=== PATIENT | male | born 1945 | race African-American/Black ===

== ENCOUNTER 2017-04-29 16:42 | Inpatient (IN) | payer MEDICARE, MEDICAID ==
[~2017-04-29] VITALS: Ht 175.3 cm; Wt 150.8 kg
[~2017-04-29 16:42] MED LIST: Vitamin A and D
[2017-04-29 17:01] VITALS: BP 109/58; PULSE 102; RESP 20; O2SAT 94
--- NOTE | 2017-04-29 18:31 | ED.REPORT ---
HPI-General Illness Date of Service Apr 29, 2017 ED Provider: Benedict Mendoza MD A 71 year old male with an extensive medical history including CHF, pulmonary hypertension, lower extremity edema, hypertension, diabetes, C. difficile and MRSA is brought from his residence at [facility] to the ED via EMS due to an up trending white blood cell count. The pt's white blood cell count is checked weekly and it was found to be abnormal today. This is accompanied by persistent C. difficile diarrhea, five days of worsening generalized body pain and lower extremity edema. He has no other acute complaints at this time. The pt denies cough, headache, chest pain, shortness of breath or abdominal pain. He also had a bone infection two weeks ago and has been admitted several times to different hospitals recently. He has had a decubitus ulcer since early 02/2017, which is now infected with MRSA and being treated with antibiotics. Nursing Notes Stated Complaint: WBC OFF/DECUBITUS ULCER/FROM [facility] Chief Complaint: General Complaint Nursing Notes Reviewed: Yes Allergies: Coded Allergies: No Known Drug Allergies (Verified Allergy, 11/13/11) Scheduled Albuterol HFA (Proair HFA) 8.5 Gm Hfa.aer.ad 2 PUFFS INHALATION Q4H Allopurinol (Allopurinol) 100 Mg Tablet 200 MG PO BID Ascorbic Acid (Vitamin C) 100 Mg Tablet 0 PO DAILY Atorvastatin (Lipitor) 10 Mg Tab 40 MG PO DAILY Famotidine (Famotidine) 20 Mg Tablet 20 MG PO DIALY Flaxseed Oil (Hamilton-3 Flaxseed Oil) 1,000 Mg Capsule 1,000 MG PO DAILY Fondaparinux Sodium (Fondaparinux Sodium) 2.5 Mg/0.5 Ml Syringe 2.5 MG SQ DAILY Furosemide (Furosemide) 20 Mg Tab 20 MG PO DAILY Lovastatin (Lovastatin) 40 Mg Tablet 40 MG PO HS Magnesium Oxide (Magnesium Oxide) 400 Mg Tablet 800 MG PO 2X WEEK Metolazone (Metolazone) 2.5 Mg Tablet 2.5 MG PO mON-wED-sat Multivitamin (Multivitamins) 1 Each Capsule 1 EACH PO DAILY Oxycodone ER (Oxycontin) 10 Mg Tab.er.12h 10 MG PO Q8HR Aqckcatspaku-Fgnl-Rwafzsya,Iso (Zosyn 4.5 gm/100 ml Galaxy Bag) 4.5 Gm/100 Ml Froz.piggy 4.5 GM IV Q6HR Potassium Chloride ER (Potassium Chloride ER) 20 Meq Tablet.er 40 MEQ PO DAILY TAKE WITH FOOD Rutin (Rutin) 500 Mg Tablet 500 MG PO DAILY Spironolactone (Spironolactone) 50 Mg Tablet 50 MG PO DAILY Torsemide (Torsemide) 20 Mg Tablet 20 MG PO BID Vancomycin (Vancomycin) 250 Mg Capsule 250 MG PO QID Scheduled PRN Acetaminophen (Acetaminophen) 325 Mg Tablet 650 MG PO Q4H PRN PRN For Pain Colchicine (Colcrys) 0.6 Mg Tablet 0.6 MG PO DAILY PRN PRN GOUT Hydromorphone (Hydromorphone) 4 Mg Tablet 4 MG PO Q4H PRN PRN Pain Miscellaneous Medications ([Vitamin A and D]) General Time Seen by MD: 18:13 Chief Complaint Other (High WBC count) Hx Obtained From: Patient, Community Outreach Advocate Arrived By: Ambulance Sudden in Onset?: No Recent Healthcare: Recent doctor visit, Recent hospitalization Similar Sx Previous: Yes ( ) Past Medical History Past Medical History CHF hypertension pulmonary hypertension COPD edema diverticulosis hip pain sciatica pain diabetes Past Surgical History RLE microphlebectomy polypectomy Smoking History Unknown if Ever Smoker Social History resides in [facility] Other Social History: Good social support Ambulatory Status Wheelchair Review of Systems high white blood cell count generalized body pain bilateral lower extremity edema decubitus ulcer Full Review of Systems Respiratory: Denies: Non-productive cough, Shortness of breath Cardiovascular: Denies: Chest pain GI: Denies: Abdominal pain Neurologic: Denies: Headache Complete sys rev & neg: except as marked. Physical Exam Constitutional: Well-developed, well-nourished. Not diaphoretic. Head: Normocephalic and atraumatic. Mouth/Throat: Oropharynx is clear and moist. No oropharyngeal exudate. Eyes: EOM are normal. Pupils are equal, round, and reactive to light. Neck: Supple, no tracheal deviation. Cardiovascular: Normal rate, regular rhythm. Equal and intact distal pulses throughout. Pulmonary/Chest: Effort normal and breath sounds normal. No respiratory distress. Abdominal: Soft. No distension. There is no tenderness, rebound, or guarding. Bowel sounds present. Musculoskeletal: Range of motion grossly intact, moving all extremities. 2+ pitting edema of bilateral lower extremities. Strong pulses bilaterally. Chronic venous stasis changes. No bony tenderness. Neurological: AOx3. Grossly nonfocal exam. Strength and sensation intact and equal to bilateral upper and lower extremities. Skin: Warm and dry, no pallor appreciated. 2 cm x 2 cm x 1 cm decubitus ulcer on the right side of the sacroiliac region. Psychiatric: Appropriate mood and affect. Behavior appears normal. Vital Signs Vital Signs Date Time Temp Pulse Resp B/P Pulse Ox O2 Delivery O2 Flow Rate FiO2 04/29/17 23:39 107 18 101/52 99 Nasal Cannula 2 04/29/17 22:32 94 18 100/47 100 Nasal Cannula 2 04/29/17 17:01 36.7 102 20 109/58 94 Room Air Initial VS: Reviewed Respiratory / Chest: Atraumatic, Breath sounds NL, Breath sounds = bilat, No respiratory distress Effort normal Interpretation & Diagnostics Interpretation & Diagnostics: Hip/Pelvis X-Ray: IMPRESSION: 1. 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 Associated avascular necrosis of the femoral head cannot be excluded. Dictated by: German Zuniga M.D. on 04/29/2017 at 22:08 Approved by: German Zuniga M.D. on 04/29/2017 at 22:11 Lab Results Interpretation Result Diagram: 04/29/17 1841 04/29/17 1841 Test 04/29/17 18:41 04/29/17 20:21 White Blood Count 18.3th/mm3 (3.8-10.1) Red Blood Count 3.22mil/mm3 (4.40-5.80) Hemoglobin 9.4g/dL (13.8-17.2) Hematocrit 29.0% (41.0-50.0) Mean Corpuscular Volume 90.1fL (81-100) Mean Corpuscular Hemoglobin 29.2pg (27.0-35.0) Mean Corpuscular Hemoglobin Concent 32.4% (32.0-37.0) Red Cell Distribution Width 17.6% (12.3-15.4) Platelet Count 392bil/L (150-400) Neutrophils (%) (Auto) 65.5% (40-74) Lymphocytes (%) (Auto) 11.0% (14-46) Monocytes (%) (Auto) 9.3% (4-12) Eosinophils (%) (Auto) 11.5% (0-5) Basophils (%) (Auto) 0.3% (0-3) Erythrocyte Sedimentation Rate 45mm/hr (0-30) Prothrombin Time 10.5sec (8.1-12.5) Prothromb Time International Ratio 0.98ratio Activated Partial Thromboplast Time 33.2sec (22.8-33.0) Sodium Level 129mEq/L (134-144) Potassium Level 4.8mEq/L (3.5-5.2) Chloride Level 90mEq/L (97-108) Carbon Dioxide Level 24mmol/L (18-29) Blood Urea Nitrogen 35mg/dL (8-27) Creatinine 1.24mg/dL (0.76-1.27) Estimat Glomerular Filtration Rate 61mL/min (>59) Glucose Level 111mg/dL (60-99) Lactic Acid Level 1.1mmol/L (0.4-2.0) Calcium Level 9.8mg/dL (8.5-10.1) Magnesium Level 1.6mg/dL (1.6-2.6) Total Bilirubin 0.3mg/dL (0.0-1.2) Aspartate Amino Transf (AST/SGOT) 23U/L (0-50) Alanine Aminotransferase (ALT/SGPT) 18U/L (0-44) Alkaline Phosphatase 75U/L (25-160) Troponin T 0.086ug/L (0.0-0.011) C-Reactive Protein 10.7mg/dL (0.0-0.5) Total Protein 5.9g/dL (6.4-8.4) Albumin 3.1g/dL (3.4-5.0) Procalcitonin 0.37ng/mL (0.00-0.08) Hold Gaspar Top Tube Received (Received) Urine Color Yellow (YELLOW) Urine Appearance Clear (CLEAR,HAZY) Urine pH 5.0 (5.0-8.0) Urine Specific Dickinson 1.010 (1.003-1.035) Urine Protein Tracemg/dL (NEG,TRACE) Urine Glucose (UA) Negativemg/dL (NEGATIVE) Urine Ketones Negativemg/dL (NEGATIVE) Urine Occult Blood Negative (NEGATIVE) Urine Nitrite Negative (NEGATIVE) Urine Bilirubin Negative (NEGATIVE) Urine Urobilinogen Normalmg/dL (NORMAL) Urine Leukocyte Esterase Trace (NEGATIVE) Urine RBC 0-2/hpf (0-2) Urine WBC 0-5/hpf (0-5) Urine Epithelial Cells Few/hpf (NONE-MOD) Urine Crystals None seen (NONE SEEN) Urine Bacteria Few/hpf (NONE-FEW) Urine Hyaline Casts None/lpf (NONE) Urine Granular Casts None seen (NONE SEEN) Urine Waxy Casts None seen (NONE SEEN) Urine Red Blood Cell Casts None seen (NONE SEEN) Urine White Blood Cell Casts None seen (NONE SEEN) Urine Mucus None seen (None Seen) Urine Trichomonas None seen (NONE SEEN) Urine Yeast None (NONE SEEN) Urinalysis Comment None Urine Culture Reflexed Indicated Hold Urine Received (Received) ECG Interpretation ECG Interpretation: sinus tachycardia with a rate of 107 abnormal R-wave progression, early transition Time: 19:40 Interpreted by: ED physician X-Ray Chest Interpretation Chest Xray Interpretation: IMPRESSION: 1. Mild pulmonary edema redemonstrated without acute consolidation. Dictated by: German Zuniga M.D. on 04/29/2017 at 22:06 Approved by: German Zuniga M.D. on 04/29/2017 at 22:07 Interpretation / Wet Read by: Interpret - Radiologist Re-Eval/Medical Decision Med Decision/Clinical Course 71M w/ complex PMHx presenting from [facility] over concern for sepsis. Patient does have skin/soft tissue source present w/ sacral ulcer, though unclear if this is entirely responsible for his current presentation. Labs notable for leukocytosis, elevated inflammatory markers; lactic acid of 1.1. Also w/ troponin of 0.086 - no new CP or dyspnea at this time, nor acute ischemic changes appreciated on EKG - suspect demand ischemia, though primary cardiac issue could also be present. XR of hip somewhat equivocal and though no obvious evidence of avascular necrosis, cannot be ruled out. Incidentally, patient also being treated for C. diff at this time. Patient started on broad spectrum abx in the ED. Given all of the above, plan admission for further evaluation and management. Discussed w/ patient and significant other; both were in agreement w/ plan, no further questions. Source of Hx: Old records Time of Eval: 18:13 Re-Evaluation/Progress Note: Pt and family informed of the need for admission during the initial interview. Pt and family understand and agree with the plan. All questions are addressed at this time. Time of Eval: 19:13 Re-Evaluation/Progress Note: Pt rechecked and the diagnosis and plan for admission are further discussed. Time of Eval: 21:07 Re-Evaluation/Progress Note: Pt rechecked, who is stable. Additional physical examination is performed. Consultation : Referral / Consult Name: Joaquin Moore MD Consulted With: Hospitalist Call Returned at: 23:12 Painter Decorator: Agrees with eval, Agrees with plan, Accepts admit Note: Spoke with Dr. Moore, hospitalist, regarding pt's case. Dr. Moore agrees with the evaluation and agrees to admit the pt. Counseled Regarding: Diagnosis, Lab results, Need for admission Discharge & Departure Primary Impression: Sepsis Sepsis type: sepsis due to unspecified organism Qualified Code: A41.9 - Sepsis, unspecified organism Additional Impression: NSTEMI (non-ST elevated myocardial infarction) Disposition: ADMITTED TO HOSPITAL Discharge Condition All VS Reviewed: Yes Condition: Stable Referrals: OTHER,PHYSICIAN (PCP) Crit Care Except Billable Proc Time Spent: 30-74 minutes Services Performed: Patient management by me, Time spent at bedside, Reviewing test results, Discussing patient care, Documentation in record, Time with fam/ surrogate Critical Care Notes: Please see MDM above Scribe Attestation Portions of this note were transcribed by Tamia Levine. I, Dr. Mendoza personally performed the history, physical exam and medical decision-making; I reviewed and confirmed the accuracy of the information in the transcribed note. Signed by: Melvin Momin, 04/29/17 and 2313. Benedict Mendoza MD Apr 29, 2017 18:31 TAMIA LEVINE Apr 29, 2017 18:47
[2017-04-29 18:45] LABS: BASOPHILS % (AUTO) 0.3 % (0-3); EOSINOPHILS % (AUTO) 11.5 % (0-5); MONOCYTES % (AUTO) 9.3 % (4-12); Mean Corpuscular Hemoglobin 29.2 pg (27.0-35.0); Mean Corpuscular Volume 90.1 fL (81-100); NEUTROPHILS % (AUTO) 65.5 % (40-74); Platelet Count 392 bil/L (150-400)
[2017-04-29] MEDS ORDERED: SPIR50TA2 PO (18:46)
[2017-04-29] MEDS ORDERED: LOVA40TA PO (18:46)
[2017-04-29] MEDS ORDERED: ALBU8.5H2 INHALATION (18:46)
[2017-04-29] MEDS ORDERED: OXYC10TA69 PO (18:46)
[2017-04-29] MEDS ORDERED: RUTI500T PO (18:46)
[2017-04-29] MEDS ORDERED: [UNRECOGNIZED DRUG - CODE] SQ (18:46)
[2017-04-29] MEDS ORDERED: METO2.5T12 PO (18:46)
[2017-04-29] MEDS ORDERED: ASCO100T11 PO (18:46)
[2017-04-29] MEDS ORDERED: POTA-62 PO (18:46)
[2017-04-29] MEDS ORDERED: TORS20TA3 PO (18:46)
[2017-04-29] MEDS ORDERED: FLAX100038 PO (18:46)
[2017-04-29] MEDS ORDERED: HYDR4TAB PO (18:46)
[2017-04-29] MEDS ORDERED: COLC0.6T52 PO (18:46)
[2017-04-29] MEDS ORDERED: ATRV10T PO (18:46)
[2017-04-29] MEDS ORDERED: MAGN400T4 PO (18:46)
[2017-04-29] MEDS ORDERED: ACET325T51 PO (18:46)
[2017-04-29] MEDS ORDERED: FUR20 PO (18:46)
[2017-04-29] MEDS ORDERED: ZYL100 PO (18:46)
[2017-04-29] MEDS ORDERED: MULT1CAP33 PO (18:52)
[2017-04-29] MEDS ORDERED: FAMO20TA4 PO (18:52)
[2017-04-29] MEDS ORDERED: VANC250C11 PO (18:52)
[2017-04-29] MEDS ORDERED: PIPE4.5F2 IV (18:52)
[2017-04-29] MEDS ORDERED: 0.9% Sodium Chloride 1,000 ML IV ONE (18:58)
[2017-04-29] MEDS ORDERED: Clindamycin Inj 900 MG in IV Premix 1 EACH IV ONE (19:00)
[2017-04-29] MEDS ORDERED: Vancomycin Dose per Pharmacist XX ONE (19:00)
[2017-04-29] MEDS ORDERED: Meropenem Inj 1,000 MG in 0.9% Sodium Chloride 100 ML IV ONE (19:00)
[2017-04-29 19:18] LABS: INR 0.98 ratio
[2017-04-29 19:39] LABS: Magnesium 1.6 mg/dL (1.6-2.6)
[2017-04-29 19:43] LABS: TROPONIN T 0.086 ug/L (0.0-0.011)
[2017-04-29] MEDS: HYDROmorphone 1 mg/mL Inj IVPUSH PRN ×3 (19:45→22:07)
[2017-04-29] MEDS ORDERED: Vancomycin Inj 2,250 MG in 0.9% Sodium Chloride 500 ML IV ONE (19:55)
--- NOTE | 2017-04-29 22:09 | DRSVH ---
PROCEDURE: X-RAY CHEST ONE VIEW, PORTABLE ([id number]) INDICATIONS: leukocytosis TECHNIQUE: One view of the chest was acquired. COMPARISON: [facility], , CHEST 1 VIEW, 12/06/2016, 11:58. FINDINGS: Surgical changes and devices: None. Lungs and pleura: No pleural effusions or pneumothorax. There is mild pulmonary edema redemonstrate d. No acute consolidation. Mediastinum: Mediastinal contours appear unchanged. Heart size is enlarged. Bones and chest wall: No suspicious bony lesions. Overlying soft tissues appear unremarkable. IMPRESSION: 1. Mild pulmonary edema redemonstrated without acute consolidation. Dictated by: eGrman Zuniga M.D. on 04/29/2017 at 22:06 Approved by: German Zuniga M.D. on 04/29/2017 at 22:07
--- NOTE | 2017-04-29 22:12 | DRSVH ---
PROCEDURE: X-RAY PELVIS W/LAT HIP (LT) ([id number]) INDICATIONS: hip pain TECHNIQUE: AP pelvis with frontal and lateral views of the left hip. COMPARISON: [facility], , XR PELVIS W LATERAL HIP LT, 12/14/2015, 15:32. FINDINGS: Bones: Lateral view is limited due to body habitus. There is also extensive bowel gas limiting evalu ation. There is severe superior joint space narrowing in the left hip with increased flattening and remodeling along the articular surfaces of the acetabulum and femoral head. There is subchondral cys tic change and sclerosis. There is yhak-yj-ojjcvota axial joint space narrowing in the right hip. N o definite acute fracture. Soft tissues: No suspicious soft tissue calcifications. IMPRESSION: 1. Progressive osteoarthritic changes of the left hip with severe joint space narrowing with bony re modeling and flattening along the articular surfaces. Associated avascular necrosis of the femoral h ead cannot be excluded. Dictated by: German Zuniga M.D. on 04/29/2017 at 22:08 Approved by: German Zuniga M.D. on 04/29/2017 at 22:11
[2017-04-29 22:32] VITALS: BP 100/47; PULSE 94; RESP 18; O2SAT 100
[2017-04-29 22:46] LABS: APPEARANCE,URINE CLEAR (CLEAR,HAZY); COLOR,URINE YELLOW (YELLOW); OCCULT BLOOD,URINE NEGATIVE (NEGATIVE); UROBILINOGEN,URINE NORMAL (NORMAL)
[2017-04-29] MEDS ORDERED: Ondansetron 2 mg/mL 2 mL Inj IVPUSH PRN (23:20)
[2017-04-29] MEDS ORDERED: Polyethylene Glycol (PEG) 17 Gm Powder PO PRN (23:20)
[2017-04-29] MEDS ORDERED: Alum-Mag Hydrox-Simeth 30 mL Suspension PO PRN (23:20)
[2017-04-29 23:39] VITALS: BP 101/52; PULSE 107; RESP 18; O2SAT 99
--- NOTE | 2017-04-29 23:49 | PCM.HPMED ---
Subjective Date of Service Apr 29, 2017 Primary Provider: Admitting Physician: Primary Care Physician: Dieter Garibay MD Attending Physician: Chief Complaint: Sepsis History of Present Illness: Mr. Mcbride is a 71-year-old male with past medical history of CHF, pulmonary hypertension, lower extremity edema, C. difficile and MRSA, hypertension and diabetes who [facility] ED from [facility] via EMS secondary to upward trend of leukocytosis. He reportedly gets weekly WBC checks and today's lab value was found to be abnormal. Patient has also had persistent C. difficile diarrhea and 5 days of worsening generalized body aches pains and lower extremity edema. He states he had a bone infection 2 weeks ago and has been admitted several times to different hospitals recently. He states lower back discomfort and pain which she attributes to a decubitus ulcer which she developed 03/14/2017 and is reportedly now infected with MRSA being treated with ABX. He denies any other complaints. Denies headache, visual changes, chest pain, cough, shortness of breath or abdominal pain. In the ED CXR showed mild pulmonary edema, and x-ray hip/pelvis showed possible left hip avascular necrosis. Lab values showed leukocytosis 18.3, mild anemia, hyponatremia, elevated troponin and C-reactive protein. Patient was given vancomycin, meropenem and clindamycin and started on IV fluids. Given Dilaudid for pain. Review of Systems: A comprehensive review of systems was conducted with the patient and found to be negative except as above in the history of present illness. Allergies Coded Allergies: No Known Drug Allergies (Verified Allergy, 11/13/11) Home Medications Albuterol HFA (Proair HFA) 8.5 Gm Hfa.aer.ad 2 PUFFS INHALATION Q4H Allopurinol (Allopurinol) 100 Mg Tablet 200 MG PO BID Ascorbic Acid (Vitamin C) 100 Mg Tablet 0 PO DAILY Atorvastatin (Lipitor) 10 Mg Tab 40 MG PO DAILY Famotidine (Famotidine) 20 Mg Tablet 20 MG PO DIALY Flaxseed Oil (Newell-3 Flaxseed Oil) 1,000 Mg Capsule 1,000 MG PO DAILY Fondaparinux Sodium (Fondaparinux Sodium) 2.5 Mg/0.5 Ml Syringe 2.5 MG SQ DAILY Furosemide (Furosemide) 20 Mg Tab 20 MG PO DAILY Lovastatin (Lovastatin) 40 Mg Tablet 40 MG PO HS Magnesium Oxide (Magnesium Oxide) 400 Mg Tablet 800 MG PO 2X WEEK Metolazone (Metolazone) 2.5 Mg Tablet 2.5 MG PO mON-wED-fRI Multivitamin (Multivitamins) 1 Each Capsule 1 EACH PO DAILY Oxycodone ER (Oxycontin) 10 Mg Tab.er.12h 10 MG PO Q8HR Oyjjvejmhdoy-Echg-Thcaeyng,Iso (Zosyn 4.5 gm/100 ml Galaxy Bag) 4.5 Gm/100 Ml Froz.piggy 4.5 GM IV Q6HR Potassium Chloride ER (Potassium Chloride ER) 20 Meq Tablet.er 40 MEQ PO DAILY TAKE WITH FOOD Rutin (Rutin) 500 Mg Tablet 500 MG PO DAILY Spironolactone (Spironolactone) 50 Mg Tablet 50 MG PO DAILY Torsemide (Torsemide) 20 Mg Tablet 20 MG PO BID Vancomycin (Vancomycin) 250 Mg Capsule 250 MG PO QID PMH CHF with Chronic cor pulmonale hypertension pulmonary hypertension COPD edema diverticulosis hip pain sciatica pain diabetes coronary artery disease Sleep apnea Morbid obesity CK D stage V Gout GERD HLD . Surgical History RLE microphlebectomy polypectomy Family History Per outpatient records: Father: MRI, glaucoma, macular degeneration Mother: Cataracts Sister: Hypertension Social History Hx Alcohol Use: No Hx Substance Use: No Hx Tobacco Use: Yes Smoking Status: Former Smoker (0.5 packs per day 12 pack year history quit 11/1986) Living Arrangement: with Family Exam Vital Signs Vital Sign - Last Date Time Temp Pulse Resp B/P Pulse Ox O2 Delivery O2 Flow Rate FiO2 04/29/17 23:39 107 18 101/52 99 Nasal Cannula 2 04/29/17 17:01 36.7 Exam General: Laying in hospital bed in no acute distress, morbidly obese, appropriately interactive HEENT: Normocephalic, atraumatic. External ears without defect. Pupils equal, round, and reactive to light and accommodation. Oropharynx free of erythema and cobble stoning with moist mucosa. Poor dentition. Neck: Supple with full range of motion. No jugular venous distension, obvious though difficult to appreciate secondary to body habitus Cardiovascular: Regular rate and rhythm with no murmurs, rubs, or gallops appreciated Pulmonary: Clear to auscultation bilaterally with no crackles, wheezes, or rhonchi - difficult to appreciate secondary to body habitus. Normal respiratory effort with no use of accessory muscles. Abdomen: Soft, nontender. Extremities: Able to move all 4 extremities. Bilateral lower extremity edema. Neurological: Cranial nerves grossly intact. Psychiatric: Normal mood and affect. Alert and oriented to person, place, and time. ER doctor Reported 2 cm x 2 cm x 1 cm decubitus ulcer on the right side of sacroiliac region (unable to visualize secondary to patient pain and body habitus) Lab and Diagnostics Result Diagram: 04/29/17184004/29/171840 X-Rays, CTs and MRIs . X-RAY CHEST ONE VIEW, PORTABLE IMPRESSION: 1. Mild pulmonary edema redemonstrated without acute consolidation. Dictated by: German Zuniga M.D. on 04/29/2017 at 22:06 X-RAY PELVIS W/LAT HIP (LT)ns. IMPRESSION: 1. 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 Associated avascular necrosis of the femoral head cannot be excluded. Dictated by: German Zuniga M.D. on 04/29/2017 at 22:08 Assessment & Plan Mr. Mcbride is a 71-year-old male with past medical history of chronic hip pain , C. difficile, CHF, hypertension, COPD. Admitted after meeting septic criteria with possible source of sacral decubitus ulcer or colitis. Sepsis. Acute. Present on admission. Ongoing - On admission patient tachycardic, tachypneic with leukocytosis. Possible sources sacral decubitus ulcer, C. difficile colitis - Blood cultures pending - ABX in ED initiated IV vancomycin, meropenem, clindamycin - Continue vancomycin and meropenem - Pro calcitonin 0.37 - Consider infectious disease consult - Approximately 2 L IV fluids given in ED, held additional fluids secondary to volume status - Continue monitor Hip pain. Chronic. Present on admission - Imaging shows possible avascular necrosis - Continue pain management initiated in ED with IV Dilaudid Sacral decubitus ulcer. Present on admission. - Consider wound care consult in a.m. - Antibiotics as above History of C. difficile. Chronic. Present on admission - Stool C-diff PCR pending - Vancomycin by mouth in addition to IV - Hold clindamycin secondary to black box warning Anemia. Chronic. Present on admission. Ongoing - Stool guaiac Congestive heart failure. Chronic. Present on admission. Ongoing - Last echo from 2012 shows EF 50-55% (reduced from prior study), right ventricular enlargement - Troponin elevated 0.086, continue to trend - Consider repeat echo - Continue home Furosemide Hypertension. Chronic. Not present on admission. Ongoing - Per med rec home medications include torsemide, spironolactone and furosemide - Hold hypertensive meds, patient hemodynamicly stable COPD. Present on admission. Ongoing - We will hold home Albuterol - DuoNeb's when necessary Reported Diabetes. Present on admission. Ongoing - A1c pending Morbid obesity. Chronic. Present on admission. Ongoing - BMI 44.4 Gout. Present on admission. Chronic. Stable - Continue home Allopurinol - Continue home Colchicine GERD present on admission. Stable - Continue home Famotidine HLD. Chronic. Present on admission. Stable - Continue home Atorvastatin - Per med rec patient also on home lovastatin, held this medication At time of dictation med rec incomplete, many medications held awaiting verification. Patient Status: Patient was admitted under inpatient status with expected length of stay greater than two midnights due to severity of presenting symptoms , risk of adverse event, and complexity of treatment plan.0 CODE STATUS: Patient for code as of now, would write to have discussion during the day in the presence of fianc regarding goals of care. Pain Evaluation: Adequate Pain Control GI Prophylaxis: H2 stephanie VTE Prophylaxis: SCDs Resuscitation Status: CPR: Attempt Resuscitation Attending Statement The patient was seen and examined together with Dr. Ortiz on 04/29 and I agree with the history, exam and plan as outlined in the note above. JIMMY ORTIZ DO Apr 29, 2017 23:49 Joaquin Moore MD Apr 30, 2017 07:00
[2017-04-29 23:59] VITALS: BP 101/52; PULSE 107; RESP 18; O2SAT 99
[2017-04-30] VITALS (10 sets, daily range): BP systolic 94–103; BP diastolic 47–75; PULSE 91–114; RESP 13–22; O2SAT 92–96
[2017-04-30] MEDS: HYDROmorphone 1 mg/mL Inj IVPUSH PRN ×3 (02:38→15:27)
[2017-04-30] MEDS ORDERED: Albuterol-Ipratropium 3 mL Inhalation Solution NEB PRN (02:50)
[2017-04-30] MEDS: Vancomycin 250 mg Oral Capsule PO SCH ×3 (03:34→12:06)
[2017-04-30 03:46] LABS: BASOPHILS % (AUTO) 0.2 % (0-3); EOSINOPHILS % (AUTO) 12.3 % (0-5); MONOCYTES % (AUTO) 11.3 % (4-12); Mean Corpuscular Hemoglobin 29.3 pg (27.0-35.0); NEUTROPHILS % (AUTO) 65.2 % (40-74); Platelet Count 314 bil/L (150-400)
--- NOTE | 2017-04-30 03:47 | PCM.CONPHA ---
Subjective Date of Service: Apr 30, 2017 Requesting Provider: JIMMY SINGH DO Sepsis Reason for Pharmacy Consult: Vancomycin Dosing Objective Vital Signs Date Time Temp Pulse Resp B/P Pulse Ox O2 Delivery O2 Flow Rate FiO2 04/30/17 00:09 36.6 91 22 103/65 92 Nasal Cannula 4.00 04/29/17 23:59 36.7 107 18 101/52 99 Nasal Cannula 2 04/29/17 23:39 107 18 101/52 99 Nasal Cannula 2 04/29/17 22:32 94 18 100/47 100 Nasal Cannula 2 04/29/17 17:01 36.7 102 20 109/58 94 Room Air Intake and Output 04/28/17 04/29/17 04/30/17 00:00 00:00 00:00 Intake Total 1000 ml Balance 1000 ml Weight (Kilograms): 144.500 Height (Feet): 5 Height (Inches): 9.00 Test 04/29/17 18:41 04/29/17 20:21 White Blood Count 18.3th/mm3 (3.8-10.1) Red Blood Count 3.22mil/mm3 (4.40-5.80) Hemoglobin 9.4g/dL (13.8-17.2) Hematocrit 29.0% (41.0-50.0) Mean Corpuscular Volume 90.1fL (81-100) Mean Corpuscular Hemoglobin 29.2pg (27.0-35.0) Mean Corpuscular Hemoglobin Concent 32.4% (32.0-37.0) Red Cell Distribution Width 17.6% (12.3-15.4) Platelet Count 392bil/L (150-400) Neutrophils (%) (Auto) 65.5% (40-74) Lymphocytes (%) (Auto) 11.0% (14-46) Monocytes (%) (Auto) 9.3% (4-12) Eosinophils (%) (Auto) 11.5% (0-5) Basophils (%) (Auto) 0.3% (0-3) Erythrocyte Sedimentation Rate 45mm/hr (0-30) Prothrombin Time 10.5sec (8.1-12.5) Prothromb Time International Ratio 0.98ratio Activated Partial Thromboplast Time 33.2sec (22.8-33.0) Sodium Level 129mEq/L (134-144) Potassium Level 4.8mEq/L (3.5-5.2) Chloride Level 90mEq/L (97-108) Carbon Dioxide Level 24mmol/L (18-29) Blood Urea Nitrogen 35mg/dL (8-27) Creatinine 1.24mg/dL (0.76-1.27) Estimat Glomerular Filtration Rate 61mL/min (>59) Glucose Level 111mg/dL (60-99) Lactic Acid Level 1.1mmol/L (0.4-2.0) Calcium Level 9.8mg/dL (8.5-10.1) Magnesium Level 1.6mg/dL (1.6-2.6) Total Bilirubin 0.3mg/dL (0.0-1.2) Aspartate Amino Transf (AST/SGOT) 23U/L (0-50) Alanine Aminotransferase (ALT/SGPT) 18U/L (0-44) Alkaline Phosphatase 75U/L (25-160) Troponin T 0.086ug/L (0.0-0.011) C-Reactive Protein 10.7mg/dL (0.0-0.5) Total Protein 5.9g/dL (6.4-8.4) Albumin 3.1g/dL (3.4-5.0) Procalcitonin 0.37ng/mL (0.00-0.08) Hold Gaspar Top Tube Received (Received) Urine Color Yellow (YELLOW) Urine Appearance Clear (CLEAR,HAZY) Urine pH 5.0 (5.0-8.0) Urine Specific [place] 1.010 (1.003-1.035) Urine Protein Tracemg/dL (NEG,TRACE) Urine Glucose (UA) Negativemg/dL (NEGATIVE) Urine Ketones Negativemg/dL (NEGATIVE) Urine Occult Blood Negative (NEGATIVE) Urine Nitrite Negative (NEGATIVE) Urine Bilirubin Negative (NEGATIVE) Urine Urobilinogen Normalmg/dL (NORMAL) Urine Leukocyte Esterase Trace (NEGATIVE) Urine RBC 0-2/hpf (0-2) Urine WBC 0-5/hpf (0-5) Urine Epithelial Cells Few/hpf (NONE-MOD) Urine Crystals None seen (NONE SEEN) Urine Bacteria Few/hpf (NONE-FEW) Urine Hyaline Casts None/lpf (NONE) Urine Granular Casts None seen (NONE SEEN) Urine Waxy Casts None seen (NONE SEEN) Urine Red Blood Cell Casts None seen (NONE SEEN) Urine White Blood Cell Casts None seen (NONE SEEN) Urine Mucus None seen (None Seen) Urine Trichomonas None seen (NONE SEEN) Urine Yeast None (NONE SEEN) Urinalysis Comment None Urine Culture Reflexed Indicated Hold Urine Received (Received) Assessment/Plan Assessment/Plan A: * Vancomycin dosing by pharmacy for 71 y/o man with sepsis * He was given a 2250 mg IV vancomycin dose in the ED * The patient is also being started on meropenem and oral vancomycin * Estimated CrCl for this patient is 80 mL/min (Cockcroft & Gault using AdjBW) * Estimated vancomycin half-life is 10 hours and estimated Vd is 79 liters ( 0.55 L/kg for BMI of 47) P: * Start vancomycin 1750 mg IV every 12 hours * Target a vancomycin trough range of 15 - 20 mcg/mL * Draw a trough level prior to the fourth dose Thank you. Pharmacy will continue to follow this patient. Gisele Hughes Apr 30, 2017 03:47
[2017-04-30] MEDS ORDERED: Clindamycin Inj 600 MG in IV Premix 1 EACH IV SCH (05:00)
--- NOTE | 2017-04-30 06:07 | NUR ---
ADMIT Patient transfer from ED in [facility] bed. Skin check reveals large PU on right buttock, packing replaced after area cleaned of liquid stool. Patient had several episodes of liquid stool while staff was attempting to clean him. Patient had difficulty tolerating turning for cleaning and changing. ORder for fecal management system received and was inserted. Patient his rather large and putting a lot of pressure on FMS tube, attempts to prop his leg and back up to allow for drainage. Patient continues to roll onto tube. Provided dilaudid for pain. Able to rest after FMS and pain medications.
[2017-04-30] MEDS: Meropenem Inj 1,000 MG in 0.9% Sodium Chloride 100 ML IV SCH ×3 (06:43→22:06)
[2017-04-30] MEDS ORDERED: Vancomycin Inj 1,750 MG in Dextrose 5% 500 ML IV SCH ×2 (08:30→20:30)
[2017-04-30] MEDS ORDERED: Vancomycin Dose per Pharmacist XX SCH (08:30)
[2017-04-30] MEDS ORDERED: 0.9% Sodium Chloride 250 ML ONE (11:16)
--- NOTE | 2017-04-30 12:26 | NUR ---
Skin protection Pt has pre-existing pressure ulcer on buttock area, WC already assessed and provided cleaning and dressing this am, please see note. Q2 turning/pillowing schedule in place, specialty bed based on BMI being used, FMS placed on NOC shift to keep wound area clean as pt has ongoing diarrhea, butler already in place upon admission. Care continues
--- NOTE | 2017-04-30 13:24 | PCM.PNMED ---
Subjective Date of Service Apr 30, 2017 Exam Vital Signs Vital Sign - Last Date Time Temp Pulse Resp B/P Pulse Ox O2 Delivery O2 Flow Rate FiO2 04/30/17 10:30 97 04/30/17 08:58 36.9 13 95/59 96 Nasal Cannula 4.00 Intake and Output 04/29/17 04/29/17 04/30/17 Cumulative From/Thru 15:00 23:00 07:00 04/29/17 17:01 - 04/30/17 06:40 Intake Total 1000 ml 473 ml 1473 ml Output Total 700 ml 700 ml Balance 1000 ml -227 ml 773 ml Intake Oral 473 ml 473 ml IV Total 1000 ml 1000 ml Output Urine Total 700 ml 700 ml Exam Gen.- no apparent distress. Sleeping not arousable to voice Eyes- eyes closed, no obvious discharge normal eyelids ENT- ears normal, nose normal Neck- supple/trach midline CVS- RRR Lungs respirations regular and nonlabored GI-generous pannus Musc- moving 4 no obvious deformity Neuro- cranial nerves II through XII intact to gross examination, nonfocal Skin- warm and dry, no rashes/lesions/wounds noted Reportedly large tunneling decubitus on sacrum not personally examined 04/30 Psych-sleeping not arouse to quiet voice, Lab and Diagnostics Result Diagram: 04/30/17 0335 04/30/17 0335 X-Rays, CTs and MRIs . X-RAY CHEST ONE VIEW, PORTABLE IMPRESSION: 1. Mild pulmonary edema redemonstrated without acute consolidation. Dictated by: German Zuniga M.D. on 04/29/2017 at 22:06 X-RAY PELVIS W/LAT HIP (LT)ns. IMPRESSION: 1. 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 Associated avascular necrosis of the femoral head cannot be excluded. Dictated by: German Zuniga M.D. on 04/29/2017 at 22:08 Assessment & Plan 71-year-old male admitted 04/30 worsening leukocytosis despite treatment for C. difficile and sacral decubitus 04/30 medically complex patient with I am meeting for the first time today I reviewed his records we are getting infectious disease consult, monitoring blood sugars, starting treatment for COPD with bronchodilators and evaluating for whether patient has acute CHF or not. #Respiratory failure, not clear if this is acute or chronic likely multifactorial COPD and possibly acute CHF. We will institute bronchodilators and check BNP #COPD. Present on admission. Ongoing -Start bronchodilator regimen. Patient's hypoxemic. - DuoNeb's when necessary #Congestive heart failure. Chronic. Present on admission. Ongoing - Last echo from 2012 shows EF 50-55% (reduced from prior study), right ventricular enlargement - Trop 0.086, 0.075 f/u in am 04/30 - Continue home Furosemide -Chek B HUMAN RESOURCES BENEFITS COORDINATOR in a.m. patient may need some IV this may be acute given hypoxemia #Sepsis. Acute. Present on admission. Patient does not seem overtly septic - On admission patient tachycardic, tachypneic with leukocytosis. Possible sources sacral decubitus ulcer, C. difficile colitis - Blood cultures pending - ABX in ED initiated IV vancomycin, meropenem, clindamycin - Continue vancomycin and meropenem - Pro calcitonin 0.37 - infectious disease consult requested 04/[address] Salas - Approximately 2 L IV fluids given in ED, held additional fluids secondary to volume status #Hip pain. Chronic. Present on admission - Imaging shows possible avascular necrosis - Continue pain management initiated in ED with IV Dilaudid #Sacral decubitus ulcer. Present on admission. - wound care consult 04/30 - Antibiotics as above #History of C. difficile. Chronic. Present on admission - Stool C-diff PCR pending - Continue Vancomycin by mouth in addition to IV - Hold clindamycin secondary to black box warning #Anemia. Chronic. Present on admission. Ongoing - Stool guaiac -Check anemia panel including iron and trend 04/30 #Hypertension. Chronic. Not present on admission. Ongoing - Per med rec home medications include torsemide, spironolactone and furosemide - Hold hypertensive meds, patient hemodynamicly stable #Reported Diabetes. Present on admission. Ongoing - A1c pending -Low-dose sliding scale may be discontinued if blood sugars less than [id number] hours #Morbid obesity. Chronic. Present on admission. Ongoing - BMI 44.4 #Gout. Present on admission. Chronic. Stable - Continue home Allopurinol - Continue home Colchicine #GERD present on admission. Stable - Continue home Famotidine #HLD. Chronic. Present on admission. Stable - Continue home Atorvastatin - Per med rec patient also on home lovastatin, held this medication #Prophylaxis-DVT with SCDs and enoxaparin, GI not indicated #Disposition-full code, from [facility] Prophylaxis: H2 stephanie VTE Prophylaxis: SCDs Resuscitation Status: CPR: Attempt Resuscitation Aman Cross MD Apr 30, 2017 13:24 Aman Cross MD Apr 30, 2017 13:24
[2017-04-30] MEDS ORDERED: DEXTROSE 10% IV ONE (13:30)
[2017-04-30] MEDS ORDERED: Glucose 40% Oral Gel 15 Gm Tube PO PRN (13:30)
[2017-04-30] MEDS ORDERED: Albuterol 2.5 mg/3 mL Inhalation Solution NEB PRN (13:35)
--- NOTE | 2017-04-30 14:43 | NUR ---
Social Work-initial assessment: Data:See initial assessment. Pt is a 71 y/o male who was admitted on 04/29/17 for sepsis per H&P. Pt's insurance is [employer] and PCP is Dieter Garibay MD. EMR Reviewed. BRANDON met with pt at bedside, SW role explained. Pt is alert and oriented x3. Pt has been residing at [facility] where he is a total assist. Pt uses a w/c at baseline and does not drive. Pt has no HH history. Pt has no care home care insurance or VA benefits. SW discussed DPOA/ advanced directive, pt confirms he has completed this, SW encouraged a copy to be brought in. order received for return to [facility]. BRANDON spoke with Hallie at [facility] who confirms pt is from them and is able to accept pt back at discharge with Dr. Agrawal to follow. BRANDON provided phone number and plan on white board in room. Paperwork in the chart. SW will continue to follow. Assessment:Pt who resides at [facility]. Plan:Pt to discharge back to [facility] when medically stable with Dr. Agrawal to follow. Paperwork in the chart. SW will continue to follow. ABELARDO Enriquez Addendum: 04/30/17 at 1448 by BRANDAN JUSTICE Amended: Links added.
--- NOTE | 2017-04-30 14:48 | NUR ---
Pt can return to [facility] when medically stable with Dr. Agrawal to follow. ABELARDO Enriquez
--- NOTE | 2017-04-30 15:35 | CONS ---
[address] [address] CONSULTATION REPORT PATIENT: DEMOND HINKLE : 1945 MR#: [id number] ADMIT: 04/29/2017 JOB ID: [id number] DATE OF SERVICE: 04/30/2017 INFECTIOUS DISEASE CONSULTATION: I thank Dr. Cross for this consult. REASON FOR CONSULT: Complex patient with sacral ulcer, history of C difficile, history of MRSA and multiple medical problems. HISTORY OF PRESENT ILLNESS: The patient is an incredibly complicated 71-year-old gentleman who usually lives in [place]. He has many outstanding medical problems but the last time he was seen here appears to have been 2012 when he coded and was intubated and went through the hypothermia protocol. He was subsequently transferred to the [facility] where he says it was determined that his code was due to primary pulmonary hypertension. In addition to that diagnosis, he has morbid obesity, sleep apnea, diabetes, unexplained cytopenias, renal insufficiency, avascular necrosis of the left hip, organic heart disease with CHF and pulmonary hypertension as well as history of multiple infections. The patient tells us that recently he was hospitalized at [facility] with problems related to a large sacral decubitus ulcer. He says that grew MRSA and he was then transferred to [facility] rehab facility outside of [place] for a very long stay. [facility] sent him about a week ago to [facility] here in [facility] apparently to complete a course of Zosyn which was aimed at treating his decub we understand as well as to continue therapy with oral vancomycin for C. difficile. While he was at [facility], a CBC was checked which showed that he had a new leukocytosis, and on that basis, he was transferred here yesterday. Despite his recent transfer here because of leukocytosis, the patient says he feels about at his baseline. At this point he has no fevers, chills or sweats and he denies any new sore throat, cough, shortness of breath, nausea or vomiting. He has a rectal tube in because of diarrhea which apparently is chronic and/or persistent. He has a Strauss catheter in, which apparently is new, but the patient denies any acute urinary symptoms. He also denies any known history of eosinophilia, allergy or asthma. Note additional clarification. The patient's Strauss has been present for months now and so he truly has no urinary symptoms. PAST MEDICAL HISTORY: 1. Morbid obesity. 2. Obstructive sleep apnea. 3. Type 2 diabetes. 4. Hypertension. 5. Cytopenias. 6. Gout. 7. Chronic renal insufficiency. 8. Chronic bilateral lower extremity edema. 9. Chronic left hip pain thought to be due to avascular necrosis. 10. Hyperlipidemia. 11. Organic heart disease: a. CHF. b. Pulmonary hypertension. 12. History of MRSA infections. 13. History of C. difficile which apparently is a recent process. 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 He smoked in the distant past. Does not currently drink alcohol. FAMILY HISTORY: Negative for tuberculosis in first and second-degree relatives. REVIEW OF SYSTEMS: Was done. The patient does not have a headache, no visual change. No sore throat currently. No stiff neck. No cough, shortness of breath or chest pain. No abdominal pain, nausea or vomiting. He has a rectal tube in place so he is unaware whether or not he is having diarrhea. He does have a Strauss in place and it has been there for many weeks and dates back to his admission to [facility]. He notes he has a large decubitus ulcer, which is longstanding but he is not aware of the current status of it. His legs are chronically swollen. He is currently not ambulatory due to hip pain, lower extremity edema and other issues. He denies any recent skin rash. Remainder of the review of systems is negative. PHYSICAL EXAMINATION: Reveals a morbidly obese gentleman, BMI approaching 50. Weight in excess of 320 pounds. He is awake, alert, in no acute distress. He has been afebrile since admission. Temperature 36.9, pulse 97, respiratory rate 13, blood pressure 95/59. He is saturating well but requiring 4 L. He is awake, alert, conversational. No evidence of head trauma. Eyes without conjunctivitis. Oral cavity without thrush or hairy leukoplakia. Neck is obese but without obvious JVD or adenopathy. Lungs clear anteriorly. Cardiac tones very distant. Regular rate and rhythm though. Abdomen very obese, soft, nontender, without appreciable organomegaly or ascites. No suprapubic fullness. He has a Strauss catheter. He has a rectal tube. We cannot appreciate whether or not he has inguinal nodes due to his obesity. He has about 3+ edema of the legs bilaterally. No evidence of skin breakdown or synovitis is noted in the lower extremities. He has good distal pulses and reasonable perfusion of his lower extremities. Neurologically he can move everything but is weak consistent with his nonambulatory status. Due to the very notable difficulties in rolling the patient over, we were not able to do that given that he was just rolled over for the Wound senior bioinformatics specialist, but that specialist did tell us that he has a large sacral decub with about 9 cm of undermining. The customer relations specialist felt this did not look infected or inflamed at this point. LABORATORY STUDIES: Include white count of 18,000 when he came in, 17,000 today. What is notable is there is 12% eosinophils in both samples so he has an eosinophil count around 2000. His hematocrit is 24, platelets 314, sed rate 45, creatinine 1.23. Procalcitonin 0.37. LFTs normal. CRP is 10.7. Urinalysis without white cells. Cultures include negative blood cultures. Random urine is pending but negative so far. We do not have any confirmation of his MRSA status, C. difficile status or any of his records from what are apparently long and complicated hospitalizations elsewhere. We do have a chest x-ray which is read as mild pulmonary edema. We have an x-ray of his pelvis which shows progressive arthritic changes in the left hip. Avascular necrosis of the femoral head could look like this per the radiologist. IMPRESSION: This is a complicated patient we have inherited who has been through at least two hospitals recently and we have none of those records nor any clear understanding of what happened there. The patient was at [facility] for a protracted stay and then sent to [facility] for an even longer stay. He has only been back in the local area for about a week before he was found to have a high white count, which is largely due to his eosinophilia, and sent here out of concern for possible recrudescent infection. At this point, the patient does not look infected and we are left with a conundrum. I think we will not be able to solve this puzzle without additional medical records. RECOMMENDATIONS: 1. For now we continue with the IV meropenem as well as oral vancomycin while we try and sort this out. 2. Will go ahead and stop the intravenous vancomycin as I think it is more likely to cause problems than benefit without clear understanding of what is going on. Most importantly we have asked that all records from [facility] be forwarded to us. 3. A MRSA screen of the nares has been ordered. 4. Stool C difficile has been ordered. 5. Will revisit his antibiotics tomorrow as we get more information. 6. I am concerned that his eosinophilia probably represents a drug toxicity and we will need to scrutinize his med list as well as his last CBC from [facility] to try and understand when this eosinophilia started and what it may be due to. At this point, he has no rash. I am not concerned about the DRESS or other related complications.
--- NOTE | 2017-04-30 15:41 | NUR ---
NUTRITION ASSESSMENT: ASSESS: 71 YO male admitted for sepsis, with c-diff and sacral decub ulcer. Pt is currently NPO x 1 day. PMHx: CHF with chronic cor pulmonale, pulm HTN, lower extremity edema, C-diff, MRSA, HTN, diabetes, COPD, diverticulosis, CAD, morbid obesity, CKD stage V, Gout GERD. LABS: Reviewed. Na 130, BUN 36, Glu 125, Alb 3.1. MEDS: Reviewed. GI: C-diff diarrhea with FMS in place. SKIN: Sacral decub, wound care eval pending. CURRENT WT: 144.5 kg. Adj BW: 90.67 kg. (Wt in 2013 was 176.9 kg, unclear if wt loss was intentional or not at this time) DIET: NPO x 1 Day. EST. NEEDS (WOUND, BMI): 9653-2096 kcals (25-35 kcals/kg Adj BW), 90-135 g protein (1.0-1.5 g/kg Adj BW) NUTRITION DIAGNOSIS: 1.) Inadequate oral intake related to decreased ability to consume sufficient energy as evidenced by current NPO status. NUTRITION INTERVENTION: 1.) Will continue to await timely advancement of diet, hopefully within the next 24 hours. MONITOR / EVAL: Diet advancement / tolerance, labs, nutritional status. Follow per high nutritional risk guidelines.
[2017-04-30] MEDS: Insulin LISPRO 300 Unit/3 mL Inj SUBQ SCH ×2 (16:20→22:00)
[2017-04-30] MEDS: Albuterol 2.5 mg/3 mL Inhalation Solution NEB SCH ×2 (16:33→21:08)
--- NOTE | 2017-04-30 17:29 | NUR ---
Wound Note 71 yo male admitted to [facility] due to upward trend of leukocytosis. Patient is morbidly obese, bed/chair fast SNF patient with a chronic appearing right ischial Pressure Injury (PI) (POA) which i would currently stage as a stage 3 pressure injury, there is the extreme likelihood that this was at one time a stage 4 PI but currently all bone is covered with granulation tissue. This wound measures approximately 11 cm in diameter and tunnel 10 cms cephalad at approx 11o'clock, edges are rolled and drainage is greenish tinged (colonized most likely) and moderate. Patient has obviously healed a previous PI at his sacrum in the past with what looks like scarring (with the beginnings of skin breakdown now) at what had been a significant debridement there. There is a small stage 2 PI (POA) at patients right posterior thigh that is approx 3 cms x 1 cm x 0.1 cm. Wounds were all cleaned with saline, large ischial wound was packed with ns moist gauze and covered with a foam dressing, right thigh PI was covered with foam dressing as well. Patient is on a bariatric air bed, has a fecal management system in place and has a lift sheet for utilization of ceiling hoist for positioning. Tunneling wound may benefit from surgical consult, for now dressings need to be changed daily by RN. Wound does not have an odor and again appears only colonized not clinically infected that I see.
[2017-04-30] MEDS: Vancomycin 125 mg Oral Capsule PO SCH ×2 (18:14→23:48)
--- NOTE | 2017-04-30 18:28 | NUR ---
Q2 turns Pt refused turns occasionally during shift, as charting reflects. Pt was educated as to why we turn for skin protection and because of his pressure ulcer. Pain medications are all ordered now and available, with pain control we will continue to move the pt Q2 hours. Will pass along to NOC shift.
[2017-04-30] MEDS: oxyCODONE ER 10 mg ER12 Tablet PO SCH (22:06)
[2017-04-30] MEDS: Fluticasone-Salmeterol 500-50 Inhaler INHALATION SCH (22:08)
[2017-05-01] VITALS (9 sets, daily range): BP systolic 94–111; BP diastolic 35–75; PULSE 95–123; RESP 14–18; O2SAT 93–96
--- NOTE | 2017-05-01 02:21 | NUR ---
PAIN/SKIN/FMS Patient c/o pressure in his rectum and felt he needed to stool. Rectal tube appeared to not be producing much stool. Rectal tube was removed and patient was able to have a small bowel movement of soft to liquid like stool. Dressings were removed, ulcer re-packed and mepilex replaced. Patient had been medicated with dilaudid prior to moving. Cleaned skin well and then re-positioned patient, propping him up with pillows under his elbows, and ankles as well as one under his right hip. Patient has difficulty tolerating turning and cleaning due to his chronic hip issues. The lift was utilized to boost patient. Stool sample sent for culture. Patient reports relief after removal of tube and re-positioning. Will continue to monitor patient for comfort.
[2017-05-01] MEDS: Vancomycin 125 mg Oral Capsule PO SCH ×3 (06:18→17:59)
[2017-05-01] MEDS: Meropenem Inj 1,000 MG in 0.9% Sodium Chloride 100 ML IV SCH ×3 (06:18→20:22)
[2017-05-01] MEDS: Albuterol 2.5 mg/3 mL Inhalation Solution NEB SCH ×4 (07:28→21:00)
[2017-05-01 07:33] LABS: BASOPHILS % (AUTO) 0.4 % (0-3); EOSINOPHILS % (AUTO) 13.5 % (0-5); MONOCYTES % (AUTO) 10.9 % (4-12); Mean Corpuscular Hemoglobin 29.2 pg (27.0-35.0); Mean Corpuscular Volume 90.5 fL (81-100); NEUTROPHILS % (AUTO) 61.2 % (40-74); Platelet Count 283 bil/L (150-400)
[2017-05-01] MEDS ORDERED: Vancomycin Serum Trough XX ONE (08:00)
[2017-05-01] MEDS: Insulin LISPRO 300 Unit/3 mL Inj SUBQ SCH ×4 (08:00→22:00)
[2017-05-01 08:27] LABS: Magnesium 1.6 mg/dL (1.6-2.6); Unsaturated Iron Binding 81.3 ug/dL
[2017-05-01] MEDS ORDERED: FLAXSEED OIL 1000 MG PO SCH (08:30)
[2017-05-01 08:37] LABS: TROPONIN T 0.065 ug/L (0.0-0.011)
[2017-05-01] MEDS: oxyCODONE ER 10 mg ER12 Tablet PO SCH ×2 (09:59→20:24)
[2017-05-01] MEDS: HYDROmorphone 1 mg/mL Inj IVPUSH PRN ×4 (10:00→22:05)
[2017-05-01] MEDS: Fluticasone-Salmeterol 500-50 Inhaler INHALATION SCH ×2 (11:16→20:25)
[2017-05-01] MEDS: Tiotropium 18mcg/Cap 5 Capsule Inhaler Kit INHALATION SCH (11:17)
[2017-05-01] MEDS: Potassium Chloride 20 mEq SR Tablet PO SCH (11:18)
--- NOTE | 2017-05-01 13:26 | PROG NOTE ---
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 He was transferred the day before yesterday from a shelter facility with a leukocytosis which was primarily on the basis of quite a notable eosinophilia. I saw the patient yesterday in consult and was not too impressed that he had any active infection but I was stymied by lack of records, some of which have now arrived. To summarize some of these records, the patient was admitted in late January to [facility] and subsequent transfer to [place] for about a five week stay between March 01 and April 04. During that time, he was found to have osteomyelitis of the coccyx arising from a large sacral decubitus ulcer. This was debrided and he was given a very long course of Zosyn. When he [place] on April 04, it was recommended he continue on Zosyn and followup with the infectious disease team. I am not certain what ever happened after that as that is now four more weeks ago, and when he was admitted here on April 29 from a shelter facility, he was still getting Zosyn so it sounds as if he may have had months of Zosyn at this point. Additionally during that admission, he was treated for CHF and a wide variety of other problems including morbid obesity. The cultures from the deep ulcer there yielded E. coli and Proteus and that was back almost two months ago now at [place]. When he left [place], his white count was 11,000. When he got here it was as high as 18,000 but that included 12% eosinophils and a relatively normal neutrophil percentage. This morning the patient says he has been free of fevers, chills, or sweats. He denies any acute or new complaint. He is a very poor historian and uncertain as to when these different hospital admissions and discharges occurred and also uncertain as to what treatments or surgeries he may have received. PHYSICAL EXAMINATION: Reveals an afebrile gentleman, temperature 37.9 earlier this morning and that is his highest temperature of his short two day hospitalization. Pulse 99, respiratory rate 16, blood pressure 111/45, saturating well on 1 L. Examination of the head is atraumatic. Eyes without scleral icterus. Oral cavity without notable abnormality. Lungs are clear. Cardiac tones distant. His abdomen is massively obese, soft and nontender. He has a Strauss catheter. The nurses are orchestrating a dressing change on his sacral ulcer. I reviewed the wound management specialists notes and also spoke to the airport operations specialist. He believes this wound is chronically colonized but not currently infected by its appearance and I hope to see the wound with him later today or tomorrow morning. LABORATORIES: Include a white count which has dropped from 18 down to 13,000, now with 14% eosinophils. Sed rate 45. His creatinine is 0.99. LFTs are normal. Micro studies include stool positive for C. difficile, which was known apparently at the shelter facility. MRSA PCR is negative. Blood cultures negative. Urine culture negative. An x-ray of the hip shows progressive osteoarthritis and that was known back in the [facility] admission when they mentioned severe osteoarthritis of the left hip. A chest x-ray shows mild pulmonary edema. IMPRESSION: I am still not convinced that this patient has any ongoing infection. It sounds like he may have received more than two months of IV antibiotics directed at a sacral decubitus with underlying coccygeal osteo, which grew a couple of gram-negative rods. At this point, I think it may be reasonable fairly soon to suspend antibiotic therapy for that. There is no evidence for MRSA or any ongoing systemic infection. He does have C. difficile and we are uncertain as to the chronicity of that but it is reasonable to give him 10 days or so of oral vanc. RECOMMENDATIONS: 1. Continue with oral vanco. 2. I hope to get a look at his decub in the next day or so and then we can make an informed decision about antibiotics but I suspect we will be stopping his broad-spectrum antibiotics tomorrow. 3. I will continue to follow this patient with you and I plan to discuss the case in person with Dr. Cross in just a moment.
--- NOTE | 2017-05-01 14:09 | PCM.PNMED ---
Subjective Date of Service May 01, 2017 Subjective Patient does not have any complaints of pain when I see him although he asked the nurse for a CASH REGISTER SERVICER "thought it would help" what he thought it would help he never mentioned... He says his breathing is normal, no chest pain no nausea or vomiting. He has been having lots of diarrhea ongoing was very curious about the results of his C. difficile test.(It was positive) Exam Vital Signs Vital Sign - Last Date Time Temp Pulse Resp B/P Pulse Ox O2 Delivery O2 Flow Rate FiO2 05/01/17 12:26 120 16 96 Nasal Cannula 1.00 05/01/17 11:08 111/45 05/01/17 06:14 37.9 Intake and Output 04/30/17 04/30/17 05/01/17 Cumulative From/Thru 15:00 23:00 07:00 04/29/17 17:01 - 05/01/17 06:22 Intake Total 1025 ml 400 ml 2898 ml Output Total 200 ml 1250 ml 2150 ml Balance 825 ml -850 ml 748 ml Intake Oral 300 ml 400 ml 1173 ml IV Total 725 ml 1725 ml Output Urine Total 200 ml 1250 ml 2150 ml Exam Gen.- no apparent distress. Obese male examining his menu from breakfast as he was not satisfied. Eyes-open, conjunctiva clear, pupils equal, no discharge ENT- ears normal, nose normal Neck- supple/trach midline CVS- RRR Lungs respirations regular and nonlabored GI-generous pannus Musc- moving 4 no obvious deformity Neuro- cranial nerves II through XII intact to gross examination, nonfocal Skin- warm and dry, no rashes/lesions/wounds noted Reportedly large tunneling decubitus on sacrum not personally examined it is too much to move this patient without erythema cyst Psych- pleasant and appropriate Lab and Diagnostics Result Diagram: 05/01/1724 05/01/17 0724 X-Rays, CTs and MRIs . X-RAY CHEST ONE VIEW, PORTABLE IMPRESSION: 1. Mild pulmonary edema redemonstrated without acute consolidation. Dictated by: German Zuniga M.D. on 04/29/2017 at 22:06 X-RAY PELVIS W/LAT HIP (LT)ns. IMPRESSION: 1. 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 Associated avascular necrosis of the femoral head cannot be excluded. Dictated by: German Zuniga M.D. on 04/29/2017 at 22:08 12-lead ECG Rate 107, QTC 435 ms from 04/29 personally/currently reviewed by Tay 05/01 . Sinus tachycardia . Abnormal R-wave progression, early transition Cardiac Echo Impressions Echocardiogram Report: Cisco Lowry on 03/09/2013 02:11 The patient was in sinus bradycardia with heart rates between 43-46 bpm during the exam. The left ventricle is borderline dilated. The ejection fraction is estimated to be 50-55%. Compared to the prior exam, the left ventricular function is reduced. Borderline right ventricular enlargement. Right ventricular systolic function is borderline reduced. This is decreased compared to the previous study. The left atrium is mildly dilated. The left atrium has mildly increased in size since the prior echo exam. No significant valvular pathology seen. Reading Physician:PM Additional Diagnostics C. difficile +04/30. Say screening -04/30 blood cultures, sputum and urine cultures negative thus far 05/01 Assessment & Plan 71-year-old male admitted 04/30 worsening leukocytosis despite treatment for C. difficile and sacral decubitus 04/30 medically complex patient with I am meeting for the first time today I reviewed his records we are getting infectious disease consult, monitoring blood sugars, starting treatment for COPD with bronchodilators 05/01 patient states he is chronically on oxygen, states he is having diarrhea although it is not documented by nursing he has C. difficile positive. While he did not complain about pain to me he asked the nurse for a CASH REGISTER SERVICER pump. I have received at least one call daily from a nursing that the patient is asking for more pain medications even though he does not ask me directly. Patient is not iron or B12 deficient, no stool Hemoccults have been back yet. Worsening anemia we will need transfusion 05/02. #Anemia acute/Chronic. Present on admission. Worsening patient may need transfusion 05/02 - Stool guaiac none completed 05/01 -Check anemia panel normal 05/01 #Chronic pain/continuous narcotic dependence -Patient drug-seeking with staff. Does not ask me/phsician #Sacral decubitus ulcer. Present on admission.-merepomem for now per ID - wound care consulted - Antibiotics as per infectious disease. Hopefully we are discontinuing them and patient is returning to SNF 05/02 or 05/03. #C. difficile- Present on admission - Stool C-diff PCR + 04/30 - Continue Vancomycin by mouth #Respiratory failure, not clear if this is acute or chronic likely multifactorial COPD +CHF+ obesity hypoventilation. We will institute bronchodilators 04/30. BNP is elevated will diuriese gently #COPD. Present on admission. Ongoing -Start bronchodilator regimen. Patient is hypoxemic. - DuoNeb's when necessary #Congestive heart failure. Chronic. Present on admission. Ongoing - Last echo from 2012 shows EF 50-55% (reduced from prior study), right ventricular enlargement - Trop 0.086, 0.075 f/u in am 04/30 - Continue home Furosemide -BNP only moderately elevated not changing this patient's regimen 05/01 #Sepsis?. Acute. Present on admission. Resolved 05/01 - On admission patient tachycardic, tachypneic with leukocytosis. Possible sources sacral decubitus ulcer, C. difficile colitis - Blood cultures pending - ABX in ED initiated IV vancomycin, meropenem, clindamycin - vancomycin d/c'd by ID 04/30 meropenem 04/29- per ID - Pro calcitonin 0.37 - infectious disease consult requested 04/[address] Salas - Approximately 2 L IV fluids given in ED, held additional fluids secondary to volume status #Hip pain. Chronic. Present on admission - Imaging shows possible avascular necrosis - Continue pain management initiated in ED with IV Dilaudid #Hypertension. Chronic. Not present on admission. Ongoing - Per med rec home medications include torsemide, spironolactone and furosemide - Hold hypertensive meds, patient hemodynamicly stable #Reported Diabetes. Present on admission. Ongoing -Low-dose sliding scale may be discontinued if blood sugars less than [address] hours #Morbid obesity. Chronic. Present on admission. Ongoing - BMI 44.4 #Gout. Present on admission. Chronic. Stable - Continue home Allopurinol - Continue home Colchicine #GERD present on admission. Stable - Continue home Famotidine #HLD. Chronic. Present on admission. Stable - Continue home Atorvastatin - Per med rec patient also on home lovastatin, held this medication #Prophylaxis-DVT with SCDs and enoxaparin, GI not indicated #Disposition-full code, from [facility] Prophylaxis: H2 stephanie VTE Prophylaxis: SCDs Resuscitation Status: CPR: Attempt Resuscitation Aman Cross MD May 01, 2017 14:09
--- NOTE | 2017-05-01 16:06 | NUR ---
Labs, Pain, Multidisciplinary Communication 0736 - Microbiology called to say that he was positive for C-diff. 0836 - Lab called to say his troponin was 0.065. 1100 - Spoke to Pharmacist Padmini about his missing AM Lovenox and Metolazone. She retrieved them from Pharmacy and brought them to his room. 1110 - About this time Dr. Salas was updated on his condition, care, and positive C-diff results. Also, told him that the family had requested he be given probiotics while here. He said that wouldn't be a problem and he could order them. 1240 - The [employer] called to say that his heart rate had been increasing into the 130s and was sustaining about 120s-130s. 1310 - Notified Dr. Rodas of his troponin values and heart rate of 130s. He said he as aware, but had no new orders at the time. 1323 - The patient had been complaining of pain all day and had been receiving pain medication according to his orders. About this time he asked if he might be able to get a CHEMICAL PROJECT ENGINEER pump like he had at [facility] to better control his pain. This nurse said she would ask the Doctor. Paged Dr. Cross who called back right away. He said, "Not a chance. He forgot to complain of pain to me. He'll try to get every bit of medication from us that he can. Nope. Not a chance." Told the patient that the Doctor did not want to order the CHEMICAL PROJECT ENGINEER. He expressed frustrations with this. Gave him his ordered pain medication. 1533 - Called Mook Escobar from Wound Care and asked if he wanted to come see the his buttocks ulcer and change his dressings or if he wanted nursing staff to change it today. He said he would be by later today and would take a look at it and change it with nursing staff. Care continues. Addendum: 05/01/17 at 1927 by SACHA L CARTY RN About 1730 - Mook Escobar the Wound Care Therapist came by to take a look at his buttocks wound and change his dressing. The patient had had a bowel movement and the wound was found to be contaminated with stool. Mook recommended an FMS be placed to eliminate stool from getting into his wound, but the patient firmly refused. Mook recommended nursing check him frequently for new stools and change his dressings as needed. Care continues. Addendum: 05/01/17 at 1928 by SACHA CARTY RN 1800 - Spoke to Simran his fiance and gave her an update on his condition and care with his permission.
--- NOTE | 2017-05-01 17:45 | NUR ---
Wound Note Asked by nursing to reevaluate patient today, patient seen at bedside today, lift used to position patient in bed. Patient is agreeable to treatment but poorly tolerates any bed mobility due mostly to left hip pain. 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 When I saw him today his Pressure Injury (PI) was fouled with loose stool,discussion of replacement of FMS was had but patient vigorously declines stating "it clogg s up and hurts", after cleaning of his periarea and rectum the PI was copiously irrigated with saline and repacked with saline moist gauze and an abd pad was taped bravely over top of this.The wound measures 11 cm in diameter and tunnels 10 cms cephalad at approx 11o'clock, edges are rolled with the exception of the skin at 7-5 o'clock , wound base is granular, periwound is intact. I see that surgical team has thus far not been consulted, again i think they should be asked to weigh in with their expertise. I have spoken with Dr Salas's resident about the case and recommendations going forward. It is possible that if a seal could be attained with a Wound Vac this may keep wound tower cleaner and decrease dressing change frequency and therefore pain of bed mobility.For now will recommend frequent pericare and cleaning of PI by nursing when stool contaminated.
[2017-05-02] VITALS (12 sets, daily range): BP systolic 93–110; BP diastolic 39–65; PULSE 94–121; RESP 12–20; O2SAT 51–98
[2017-05-02] MEDS: Vancomycin 125 mg Oral Capsule PO SCH ×4 (00:37→17:09)
[2017-05-02] MEDS: Meropenem Inj 1,000 MG in 0.9% Sodium Chloride 100 ML IV SCH ×2 (06:00→12:09)
[2017-05-02] MEDS: HYDROmorphone 1 mg/mL Inj IVPUSH PRN ×3 (06:05→18:39)
--- NOTE | 2017-05-02 06:22 | NUR ---
Patty care At end of shift Pt was rolled several times to change out linen and to reposition sling. Dressing to right buttock ulcer was changed due to contamination with fecal matter. Dressing was applied to a small open spot found on Pts left buttocks. Will have day shift notify wound when they come to see Pt.
[2017-05-02 07:47] LABS: Mean Corpuscular Volume 91.4 fL (81-100)
[2017-05-02] MEDS: Albuterol 2.5 mg/3 mL Inhalation Solution NEB SCH ×4 (07:51→20:18)
[2017-05-02] MEDS: Insulin LISPRO 300 Unit/3 mL Inj SUBQ SCH ×2 (08:00→11:56)
[2017-05-02] MEDS: oxyCODONE ER 10 mg ER12 Tablet PO SCH ×2 (08:32→21:15)
[2017-05-02] MEDS: Potassium Chloride 20 mEq SR Tablet PO SCH (08:32)
[2017-05-02] MEDS: Fluticasone-Salmeterol 500-50 Inhaler INHALATION SCH ×2 (08:33→21:14)
[2017-05-02] MEDS: Tiotropium 18mcg/Cap 5 Capsule Inhaler Kit INHALATION SCH (08:33)
--- NOTE | 2017-05-02 12:25 | DRSVH ---
[facility] [address] [place] [address] Echocardiogram Report Name: DEMOND HINKLE Date: 05/02/2017 Height: 71 in Hospital Exam Location: [facility] Weight: 318 lb Gender: Male BSA: 2.5 m2 : 1945 Age: 71 yrs BP: 105/51 mmHg Reason For Study: Elevated Troponin Ordering Physician: HOSPITALIST [facility] Performed By: Wilfredo Norwood Referring Physician: Sabiha Salas Interpretation Summary The study quality was technically limited. The left ventricular ejection fraction is grossly normal. The right ventricle is borderline dilated. The right ventricular systolic function is normal. There is no Doppler evidence for an interatrial shunt. There is no significant valvular heart disease. Procedure: A two-dimensional transthoracic echocardiogram with color flow and Doppler was performed. The study quality was technically limited. Patient was fully supine through out the entire exam. Low parasternals and subcostals were adequate. No Apical veiws were available. The patient was in sinus tachycardia with heart rates between 96-118 bpm during the exam. Left Ventricle: The left ventricle is normal in size. There is normal left ventricular wall thickness. The left ventricular ejection fraction is grossly normal. Diastolic function could not be accurately assessed due to unobtainable data. Right Ventricle: The right ventricle is borderline dilated. The right ventricular systolic function is normal. Atria: There is no Doppler evidence for an interatrial shunt. Mitral Valve: The mitral valve is grossly normal. Aortic Valve: The aortic valve is grossly normal. The aortic valve opens well. Tricuspid Valve: The tricuspid valve is normal in structure and function. There is trace tricuspid regurgitation. The right ventricular systolic pressure is estimated at 36 mmHg assuming a right atrial pressure of 8 mm Hg. Pulmonic Valve: Pulmonic valve was not visualized. Great Vessels: The aortic root is mildly dilated. The aortic arch could not be visualized. The ascending aorta could not be visualized. The pulmonary is not well visualized. The IVC is of normal diameter and collapses less than 50% with a sniff. This suggests a right atrial pressure of 8 mm Hg. Pericardium/ Pleura There is no pericardial effusion. There is no pleural effusion. MMode/2D Measurements & Calculations LVIDd: 5.6 cm IVC diam LVOT diam LV olivas. diameter/BSA LVIDs: 3.8 cm : 1.3 cm (cm/m^2): 2.2 FS: 32.6 % AoV Opening IVSd: 0.75 cm LVPWd: 0.64 cm Ao root diam LV sys. diameter/BSA RVD1 (basal) (cm/m^2): 1.5 Doppler Measurements & Calculations TR max kailee: 283.1 cm/sec TR max P.2 mmHg Electronically signed by: Inocencio Olivarez on Reading Physician:05/02/2017 12:24 PM
--- NOTE | 2017-05-02 12:49 | NUR ---
Pain Patient continues to complain of 9/10 hip pain. Patient has been administered IV and PO Dilaudid with minimal effectiveness. Pain level does decreases after pain medications to around 7/10.
--- NOTE | 2017-05-02 13:23 | PROG NOTE ---
[address] [address] PROGRESS NOTE PATIENT: DEMOND HINKLE : 1945 MR#: [id number] ADMIT: 04/29/2017 JOB ID: [id number] DATE: 05/02/2017 INFECTIOUS DISEASE FOLLOWUP NOTE: REASON FOR FOLLOWUP: Large decubitus ulcer with C. difficile colitis. INTERVAL HISTORY: The patient reports no fevers, chills, or new shortness of breath. He is not having any significant pain. No abdominal symptoms, and he is currently having lunch. PHYSICAL EXAMINATION: Reveals a morbidly obese gentleman, in no acute distress. Temp 36.2, pulse 100-110, respiratory rate 16, blood pressure 97/55. He is saturating well on 1 L. He is in no acute distress. He is very conversational and alert today, and more so than on any previous today. Oral cavity negative. Lungs clear. Cardiac tones very distant but regular. Abdomen is massively obese. Soft and nontender. I discussed the patient in person today with Lnein Stallings of the wound service. Lenin reports he has a large decubitus ulcer, which is obviously very difficult to visualize but at the base it appears to be clean and uninfected. Note that the patient has received IV antibiotics for what appears to be eight or more weeks continuously for this infection. LABORATORIES: Include white count 17,000. Note that back in 2012, which was the last time we had labs, his white count was normal but it has been persistently elevated throughout this hospital stay. That white count includes about 13% or 14% eosinophils. His creatinine 0.99. LFT are normal. Procalcitonin was 0.37. Micro includes a stool positive for C. diff. Blood cultures, urine cultures and MRSA PCR screen of the nose are negative. IMPRESSION: Having observed the patient for a couple of days, I doubt that he has any ongoing systemic bacterial infection and at this point, all we know for sure is that he has Clostridium difficile. He has been treated for a coccygeal osteo underlying sacral decubitus, for which he has received many weeks of antibiotics. At this point, based on the evaluation by Wound Management and the patient's overall clinical situation, I do not think that additional intravenous antibiotics are indicated at this time. RECOMMENDATIONS: 1. Will continue with oral vancomycin. 2. The IV meropenem which we have been using in lieu of the IV Zosyn he has been on for many, many weeks will be discontinued. 3. This patient should have close follow up for his large decubitus ulcer, which might reasonably involved followup by Surgery, as well as Wound Management, and continued [facility] care [facility]. 4. I would give the vancomycin for a total course of two weeks which would include the days he has already received it here in the hospital. 5. Infectious Disease will go ahead and sign off at this time, as I do not see an active infectious disease issue.
--- NOTE | 2017-05-02 13:52 | NUR ---
JONH signed @ 1240PM
--- NOTE | 2017-05-02 14:34 | NUR ---
Spoke with patient at bedside and he was expressing concern regarding his MCR days and length of time left for Group Home. Called and left message for [facility] regarding days left and patient plan for rehab and jail care. Updated REGISTER OF WILLS Addendum: 05/02/17 at 1450 by NEELIMA WAITE Hallie internship coordinator at [facility] called and patient has 39 MCR days left before exhaustion. Patient was not being active in therapy prior to this admissions and was being skilled for Nursing needs. Updated REGISTER OF WILLS
--- NOTE | 2017-05-02 15:42 | NUR ---
NUTRITION FOLLOW-UP: ASSESS: 71 YO male admitted for sepsis, with c-diff and sacral decub ulcer. Pt diet has been advanced and pt is eating 75% of meals. PMHx: CHF with chronic cor pulmonale, pulm HTN, lower extremity edema, C-diff, MRSA, HTN, diabetes, COPD, diverticulosis, CAD, morbid obesity, CKD stage V, Gout GERD. LABS: Reviewed. Na 131, BUN 34, Glu 104, Alb 2.4. MEDS: Reviewed. GI: C-Diff diarrhea, BM x 2 (05/01) SKIN: Sacral decub stage III per wound care note. CURRENT WT: 144.5 kg. Adj BW: 90.67 kg. (Wt in 2013 was 176.9 kg, unclear if wt loss was intentional or not at this time) DIET: Heart Healthy, Diabetic. PO 75% of meals. EST. NEEDS (WOUND, BMI): 4529-6169 kcals (25-35 kcals/kg Adj BW), 90-135 g protein (1.0-1.5 g/kg Adj BW) NUTRITION DIAGNOSIS: 1.) Inadequate oral intake related to decreased ability to consume sufficient energy as evidenced by current NPO status--RESOLVED, PT EATING 75% OF MEALS. 2.) Increased nutrient needs related to increased demand for nutrients as evidenced by chronic sacral decub, stage III. NUTRITION INTERVENTION: 1.) Will add Glucerna TID between meals. 2.) Will add Santana and diet sprite BID. MONITOR / EVAL: PO intake, labs, nutritional status. Follow per high nutritional risk guidelines. Addendum: 05/02/17 at [address] Will follow per moderate nutritional risk guidelines.
--- NOTE | 2017-05-02 16:41 | PCM.PNMED ---
Subjective Date of Service May 02, 2017 Subjective Denies any new issues/complaints Exam Vital Signs Vital Sign - Last Date Time Temp Pulse Resp B/P Pulse Ox O2 Delivery O2 Flow Rate FiO2 05/02/17 15:26 36.6 16 110/65 96 Nasal Cannula 1.00 05/02/17 11:46 97 Intake and Output 05/01/17 05/01/17 05/02/17 Cumulative From/Thru 15:00 23:00 07:00 04/29/17 17:01 - 05/02/17 04:20 Intake Total 1255 ml 700 ml 4853 ml Output Total 2900 ml 1100 ml 6150 ml Balance -1645 ml -400 ml -1297 ml Intake Oral 1000 ml 700 ml 2873 ml IV Total 255 ml 1980 ml Output Urine Total 2900 ml 1100 ml 6150 ml # Bowel Movements 2 2 General: Alert, Cooperative, No Acute Distress Head: Normal Eyes: Scleral Anicteric Nose: Mucous Membr Moist/[place] Mouth: Mucous Membr Moist/[place] Neck: Supple Chest & Lungs: Chest Wall Normal, Clear to auscultation & percussion Cardiovascular: Regular Rate/Rhythm Abdomen: Non-tender, Non-distended, Normoactive bowel tones, Soft Skin: Other (warm and dry, no rashes/lesions/wounds noted) Neurological: Grossly Neurologically Intact, Normal Speech IVs and Medications Medications Reviewed: Medications were reviewed in detail Lab and Diagnostics Result Diagram: 05/02/17 0732 05/01/17 0724 X-Rays, CTs and MRIs . X-RAY CHEST ONE VIEW, PORTABLE IMPRESSION: 1. Mild pulmonary edema redemonstrated without acute consolidation. Dictated by: German Zuniga M.D. on 04/29/2017 at 22:06 X-RAY PELVIS W/LAT HIP (LT)ns. IMPRESSION: 1. 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 Associated avascular necrosis of the femoral head cannot be excluded. Dictated by: German Zuniga M.D. on 04/29/2017 at 22:08 12-lead ECG Rate 107, QTC 435 ms from 04/29 personally/currently reviewed by Tay 05/01 . Sinus tachycardia . Abnormal R-wave progression, early transition Cardiac Echo Impressions Echocardiogram Report: Cisco Lowry on 03/09/2013 02:11 The patient was in sinus bradycardia with heart rates between 43-46 bpm during the exam. The left ventricle is borderline dilated. The ejection fraction is estimated to be 50-55%. Compared to the prior exam, the left ventricular function is reduced. Borderline right ventricular enlargement. Right ventricular systolic function is borderline reduced. This is decreased compared to the previous study. The left atrium is mildly dilated. The left atrium has mildly increased in size since the prior echo exam. No significant valvular pathology seen. Reading Physician:PM Additional Diagnostics C. difficile +04/30. Say screening -04/30 blood cultures, sputum and urine cultures negative thus far 05/01 Assessment & Plan 71-year-old male with past medical history of CHF, pulmonary hypertension, lower extremity edema, C. difficile and MRSA, hypertension and diabetes who presents to ED from SNF via EMS secondary to upward trend of leukocytosis. # Sepsis. Acute. Present on admission. Resolved. - Continue monitor - Further treatment as noted below # Chronic sacral decubitus ulcer. Present on admission. - Appreciate ID consult. Will followup with recs - Active systemic infection seems unlikely per ID - Stop IV antibiotics at this time - Close follow up for with Surgery, as well as Wound Management, and continued careful care at the [facility] facility # C. difficile diarrhea. Possible acute on chronic. Present on admission - Continue oral Vancomycin for a total course of two weeks # Hip pain. Chronic. Present on admission - Imaging shows possible avascular necrosis - Continue pain management initiated in ED with IV Dilaudid as needed # Anemia. Chronic. Present on admission. Ongoing - h/h stable - No sign of active bleeding - Further workup and followup as outpatient # Diastolic congestive heart failure. Chronic. Present on admission. Stable - Last echo from 2012 shows EF 50-55% (reduced from prior study), right ventricular enlargement - Troponin mildly elevated - Check repeat Echo - Continue with Torsemide and Spironolactone # Hypertension. Chronic. Not present on admission. Stable - Continue with current meds # COPD. Present on admission. Stable - DuoNeb's when necessary # Reported Diabetes. Present on admission. - Blood sugars stable without intervention - Stop Insulin sliding scale # Morbid obesity. Chronic. Present on admission. Ongoing - BMI 44.4 # Gout. Present on admission. Chronic. Stable - Continue home Allopurinol - Continue home Colchicine # GERD present on admission. Stable - Continue home Famotidine # HLD. Chronic. Present on admission. Stable - Continue home Atorvastatin Dispo: 1-2 days GI Prophylaxis: H2 stephanie VTE Prophylaxis: SCDs Resuscitation Status: CPR: Attempt Resuscitation Julio Swenson May 02, 2017 16:41 #Chronic pain/continuous narcotic dependence -Patient drug-seeking with staff. Does not ask me/phsician #Respiratory failure, not clear if this is acute or chronic likely multifactorial COPD +CHF+ obesity hypoventilation. We will institute bronchodilators 04/30. BNP is elevated will diuriese gently #COPD. Present on admission. Ongoing -Start bronchodilator regimen. Patient is hypoxemic. - DuoNeb's when necessary #Congestive heart failure. Chronic. Present on admission. Ongoing - Last echo from 2012 shows EF 50-55% (reduced from prior study), right ventricular enlargement - Trop 0.086, 0.075 f/u in am 04/30 - Continue home Furosemide -BNP only moderately elevated not changing this patient's regimen 05/01 #Sepsis?. Acute. Present on admission. Resolved 05/01 - On admission patient tachycardic, tachypneic with leukocytosis. Possible sources sacral decubitus ulcer, C. difficile colitis - Blood cultures pending - ABX in ED initiated IV vancomycin, meropenem, clindamycin - vancomycin d/c'd by ID 04/30 meropenem 04/29- per ID - Pro calcitonin 0.37 - infectious disease consult requested 04/[address] Salas - Approximately 2 L IV fluids given in ED, held additional fluids secondary to volume status #Hip pain. Chronic. Present on admission - Imaging shows possible avascular necrosis - Continue pain management initiated in ED with IV Dilaudid #Hypertension. Chronic. Not present on admission. Ongoing - Per med rec home medications include torsemide, spironolactone and furosemide - Hold hypertensive meds, patient hemodynamicly stable #Reported Diabetes. Present on admission. Ongoing -Low-dose sliding scale may be discontinued if blood sugars less than 46734 hours #Morbid obesity. Chronic. Present on admission. Ongoing - BMI 44.4 #Gout. Present on admission. Chronic. Stable - Continue home Allopurinol - Continue home Colchicine #GERD present on admission. Stable - Continue home Famotidine #HLD. Chronic. Present on admission. Stable - Continue home Atorvastatin - Per med rec patient also on home lovastatin, held this medication #Prophylaxis-DVT with SCDs and enoxaparin, GI not indicated #Disposition-full code, from [facility] GI Prophylaxis: H2 stephanie VTE Prophylaxis: SCDs Resuscitation Status: CPR: Attempt Resuscitation Julio Swenson May 02, 2017 16:41 #HLD. Chronic. Present on admission. Stable - Continue home Atorvastatin - Per med rec patient also on home lovastatin, held this medication #Prophylaxis-DVT with SCDs and enoxaparin, GI not indicated #Disposition-full code, from [facility] GI Prophylaxis: H2 stephanie VTE Prophylaxis: SCDs Resuscitation Status: CPR: Attempt Resuscitation Jluio Swenson May 02, 2017 16:41
[2017-05-03] VITALS (10 sets, daily range): BP systolic 88–120; BP diastolic 56–67; PULSE 94–129; RESP 13–20; O2SAT 90–96
[2017-05-03] MEDS: Vancomycin 125 mg Oral Capsule PO SCH ×4 (00:23→18:03)
--- NOTE | 2017-05-03 06:04 | NUR ---
Refusal of Position Changes Pt declined all position changes this shift. pt was re-educated regarding the necessity of position changing for his ulcer to heal and to prevent further skin deterioration.
[2017-05-03 06:41] LABS: BASOPHILS % (AUTO) 0.7 % (0-3); EOSINOPHILS % (AUTO) 20.2 % (0-5); MONOCYTES % (AUTO) 12.7 % (4-12); Mean Corpuscular Hemoglobin 29.7 pg (27.0-35.0); Platelet Count 317 bil/L (150-400)
[2017-05-03 07:21] LABS: Magnesium 1.6 mg/dL (1.6-2.6)
[2017-05-03] MEDS: Albuterol 2.5 mg/3 mL Inhalation Solution NEB SCH ×4 (07:21→19:23)
--- NOTE | 2017-05-03 10:00 | NUR ---
Wound Note Patient seen at bedside with nursing, right buttock decubitus dressing completely fouled with loose stool. At this point it has become concerning that this wound may be compromised due to a fistula deep in the cavity of the ulcer in which case he is fouling the wound from within. At this time it is important to ascertain if this is in fact the case, have paged [facility] team to follow up. In the meanwhile dressings can be changed regularly by nursing this entails packing with gauze, covering with an abd pad is problematic as wound is so close to rectum that taping in the area is proving futile.
--- NOTE | 2017-05-03 10:18 | NUR ---
Social Work: Readiness for d/c Data: Pt is on day 4 of hospitalization. EMR reviewed, pt discussed in rounds. MD states pt had fever last night and will remain in hospital 1-2 more days. Pt to d/c with POABX, per ID and MD. TOURIST GUIDE will continue to follow. Assessment: Pt from SNF. Plan: Pt will d/c to [facility] when medically stable, Dr Agrawal to follow, in 1-2 days per MD. Pt to d/c with POABX, per ID and MD. TOURIST GUIDE will continue to follow. ABELARDO Recio
[2017-05-03] MEDS: Potassium Chloride 20 mEq SR Tablet PO SCH (10:24)
[2017-05-03] MEDS: oxyCODONE ER 10 mg ER12 Tablet PO SCH ×2 (10:25→21:09)
[2017-05-03] MEDS: Tiotropium 18mcg/Cap 5 Capsule Inhaler Kit INHALATION SCH (10:26)
[2017-05-03] MEDS: Fluticasone-Salmeterol 500-50 Inhaler INHALATION SCH ×2 (10:26→21:09)
--- NOTE | 2017-05-03 11:10 | NUR ---
Pain reassessment Documented on wrong patient (patient is currently sleeping -- this is the case for patient in room 2013's reassessment). Patient continues to report severe pain, will administer 1mg IV dilaudid.
[2017-05-03] MEDS: HYDROmorphone 1 mg/mL Inj IVPUSH PRN ×2 (11:38→19:28)
--- NOTE | 2017-05-03 15:43 | PCM.PNMED ---
Subjective Date of Service May 03, 2017 Subjective Denies any new issues/complaints Exam Vital Signs Vital Sign - Last Date Time Temp Pulse Resp B/P Pulse Ox O2 Delivery O2 Flow Rate FiO2 05/03/17 13:39 36.4 105 18 88/56 90 Nasal Cannula 1.00 Intake and Output 05/02/17 05/02/17 05/03/17 Cumulative From/Thru 15:00 23:00 07:00 04/29/17 17:01 - 05/03/17 07:00 Intake Total 221 ml 1438 ml 200 ml 6712 ml Output Total 2000 ml 1450 ml 9600 ml Balance 221 ml -562 ml -1250 ml -2888 ml Intake Oral 1220 ml 200 ml 4293 ml IV Total 221 ml 218 ml 2419 ml Output Urine Total 2000 ml 1450 ml 9600 ml # Bowel Movements 2 Exam General: Alert, Cooperative, No Acute Distress Head: Normal Eyes: Scleral Anicteric Nose: Mucous Membr Moist/[place] Mouth: Mucous Membr Moist/[place] Neck: Supple Chest & Lungs: Chest Wall Normal, Clear to auscultation bilat Cardiovascular: Regular Rate/Rhythm Abdomen: Non-tender, Non-distended, Normoactive bowel tones, Soft Neurological: Grossly Neurologically Intact, Normal Speech IVs and Medications Medications Reviewed: Medications were reviewed in detail Lab and Diagnostics Result Diagram: 05/03/1761605/03/17616 X-Rays, CTs and MRIs X-RAY CHEST ONE VIEW, PORTABLE IMPRESSION: 1. Mild pulmonary edema redemonstrated without acute consolidation. Dictated by: German Zuniga M.D. on 04/29/2017 at 22:06 X-RAY PELVIS W/LAT HIP (LT)ns. IMPRESSION: 1. 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 Associated avascular necrosis of the femoral head cannot be excluded. Dictated by: German Zuniga M.D. on 04/29/2017 at 22:08 Cardiac Echo Impressions Date of Service: 05/02/17 0806 Echocardiogram Report Interpretation Summary The study quality was technically limited. The left ventricular ejection fraction is grossly normal. The right ventricle is borderline dilated. The right ventricular systolic function is normal. There is no Doppler evidence for an interatrial shunt. There is no significant valvular heart disease. Electronically signed by: Inocencio Olivarez on Reading Physician:05/02/2017 12:24 PM Assessment & Plan 71-year-old male with past medical history of CHF, pulmonary hypertension, lower extremity edema, C. difficile and MRSA, hypertension and diabetes who presents to ED from SNF via EMS secondary to upward trend of leukocytosis. # Sepsis. Acute. Present on admission. Seemed to have had resolved but now with fever, tachycardia, hypotension, and worsening leukocytosis again - Start IV fluid - Hold further diuretics and BP meds until hemodynamically more stable - Further treatment as noted below - Recheck blood cultures - Consider restarting systemic antibiotics pending further workup # Chronic sacral decubitus ulcer. Present on admission. - Appreciate ID consult. Will followup with recs - Active systemic infection seemed unlikely as of yesterday, per ID - Stopped IV antibiotics on 05/02/17 per ID - Concern for possible developing fistula - Surgery consulted today. Will followup with recs # C. difficile diarrhea. Possible acute on chronic. Present on admission - Continue oral Vancomycin for a total course of two weeks # Hip pain. Chronic. Present on admission - Imaging shows possible avascular necrosis - Continue pain management initiated in ED with IV Dilaudid as needed # Anemia. Chronic. Present on admission. Ongoing - h/h stable - No sign of active bleeding - Further workup and followup as outpatient # Diastolic congestive heart failure. Chronic. Present on admission. Stable - Last echo from 2012 shows EF 50-55% (reduced from prior study), right ventricular enlargement - Troponin mildly elevated - Repeat Echo shows intact EF - Hold diuretics (Torsemide and Spironolactone) as noted above # Hypertension. Chronic. Not present on admission. - Currently hypotensive - IVF and hold BP meds as noted above # COPD. Present on admission. Stable - DuoNeb's when necessary # Reported Diabetes. Present on admission. - Blood sugars stable without intervention - Stop Insulin sliding scale # Morbid obesity. Chronic. Present on admission. Ongoing - BMI 44.4 # Gout. Present on admission. Chronic. Stable - Continue home Allopurinol - Continue home Colchicine # GERD present on admission. Stable - Continue home Famotidine # HLD. Chronic. Present on admission. Stable - Continue home Atorvastatin Dispo: 2-3 days GI Prophylaxis: H2 stephanie VTE Prophylaxis: SCDs Resuscitation Status: CPR: Attempt Resuscitation Julio Swenson May 03, 2017 15:43
[2017-05-03] MEDS ORDERED: 0.9% Sodium Chloride 500 ML IV ONE (15:45)
--- NOTE | 2017-05-03 18:29 | NUR ---
Stool; This nurse acquired patient care at 1530 Patient had 4-5 soft dark brown sticky stools today. Dr Branham the surgeon and cash management specialist came to evaluate patients buttock wound today. The area is very difficult to keep clean due to patients constant stooling. The stool oozes up into the wound each time patient has a BM. The area is cleansed with a stream of NS and lightly packed with gauze soaked in NS, Patient continues to be on oral Vancomycin and contact enteric precautions for C Diff.
[2017-05-04] VITALS (10 sets, daily range): BP systolic 93–110; BP diastolic 48–65; PULSE 89–120; RESP 16–20; O2SAT 91–97
[2017-05-04] MEDS: Vancomycin 125 mg Oral Capsule PO SCH ×4 (00:06→18:16)
--- NOTE | 2017-05-04 00:55 | CONS ---
[address] [address] CONSULTATION REPORT PATIENT: DEMOND HINKLE : 1945 MR#: [id number] ADMIT: 04/29/2017 JOB ID: [id number] DATE OF SERVICE: 05/03/2017 CHIEF COMPLAINT: A 71-year-old man with sacral decubitus ulcer. This consultation is requested by Julio Swenson MD. HISTORY OF PRESENT ILLNESS: This is a 71-year-old man who was admitted to the hospital four days ago. He has a sacral decubitus ulcer, is morbidly obese, has a history of MRSA and Clostridium difficile. I was asked to see him because he has been having multiple bowel movements and stool was contaminating his sacral decubitus ulcer, causing worry that perhaps there was a fistula between his rectum and the decubitus ulcer. He was last in our hospital in 2012, and at that time was coded and intubated and went through hypothermia protocol. He was transferred to [facility] and was thought to have had primary pulmonary hypertension. He also has morbid obesity, sleep apnea, diabetes, unexplained cytopenias, renal insufficiency, avascular necrosis of the left hip, CHF, pulmonary hypertension, and multiple MIs. He reports he was hospitalized at [facility] several months ago with a large sacral decubitus ulcer, which grew MRSA. He was transferred to [place] for several months. He then went to [facility] in [facility] to complete a course of Zosyn to treat his decubitus ulcer and he was also on oral vancomycin for Clostridium difficile. While at [facility], a CBC was checked which showed he had a new leukocytosis and that was why he was transferred to this hospital. He arrived with a rectal tube in place because of ongoing diarrhea which was chronic/persistent. The rectal tube was not in place today, and several nurses have expressed concern that stool could have been coming out of his decubitus ulcer. PAST MEDICAL HISTORY: 1. Morbid obesity. 2. Obstructive sleep apnea. 3. Type 2 diabetes. 4. Hypertension. 5. Cytopenias. 6. Gout. 7. Chronic renal insufficiency. 8. Bilateral chronic lower extremity edema. 9. Left hip avascular necrosis. 10. Hyperlipidemia. 11. CHF. 12. Pulmonary hypertension. 13. History of MRSA infections. 14. History of Clostridium difficile recently. MEDICATIONS: Nystatin, allopurinol, Advair, magnesium oxide, OxyContin, famotidine, tiotropium, metolazone, multivitamin, potassium, atorvastatin, Lovenox, oral vancomycin, albuterol. The remainder of his medications are p.r.n. ALLERGIES: No known drug allergies. FAMILY HISTORY: Reviewed and noncontributory. SOCIAL HISTORY: He is a [place] who lives in [place]. He is not currently smoking cigarettes or drinking alcohol. REVIEW OF SYSTEMS: A 14 point review of systems is positive for severe left hip pain, perirectal pain, and diarrhea. Review of systems also positive for chronic lower extremity edema. Review of systems otherwise negative. PHYSICAL EXAMINATION: Vital signs: Temperature 36.7, heart rate 113, blood pressure 119/66, respiratory rate of 20, saturation 91% on nasal cannula. Head: Normocephalic. Neck: Supple. Cardiac: Irregularly irregular rhythm. Pulmonary: Breathing easily on nasal cannula. Abdomen: Morbidly obese. Rectal examination: There is a right buttock decubitus ulcer near the rectum which was soiled with loose stool at the time of examination. It is 11 cm in diameter and tunnels cephalad 10 cm at 11 o'clock. The base is beffy and red. A digital rectal examination was performed and the sacral decubitus wound was also thoroughly examined. There is no sign of fistulous connection between the two. They were in close proximity, such that the ulcer could be soiled from his diarrhea. Extremities: Bilateral lower extremity edema. Psychiatric: Normal cognition and judgment. LABS: White blood cell count is 19.3, hematocrit 24, platelets 317. Basic metabolic panel today is within normal limits including creatinine 1.1. ASSESSMENT: A 71-year-old man with a sacral decubitus ulcer in the context of Clostridium difficile diarrhea. I do not think there is a fistulous connection between the rectum and the sacral decubitus ulcer; however, the stool is frequent and is soiling the base of the ulcer. RECOMMENDATION: To confirm my suspicion that there is no fistulous tract, I recommend a barium enema. The patient also arrived with a rectal tube in place. Replacement of this may assist with further wound care of his decubitus wound. I did not see the need to debride the wound as it appeared to have a clean base. Although it is tracking cephalad, to open this up would be to create a much larger wound. Although ideally the patient would be able to keep pressure off of his ulcer, his avascular necrosis of the left hip prohibits ease of turning in bed; [place] bed is recommended. MTDD
[2017-05-04] MEDS: HYDROmorphone 1 mg/mL Inj IVPUSH PRN ×5 (04:25→22:00)
--- NOTE | 2017-05-04 05:20 | NUR ---
NOC/Dressing/BM Pt complains of pain on his left hip with movement. Needed 2-3 person assisting in incontinent changing and assisting in dressing. Cleaned pt's decubitus ulcer with salined gauze, applied moist and covered with abd pads and kerlix per wound care instructions. Denies chest pain, sob, n/v and abd discomfort. Pt has been running hypotensive but is asymptomatic. Pt has been afebrile throughout the night. Will notify MD of the BP results. Hourly rounding in effect.
[2017-05-04] MEDS: Albuterol 2.5 mg/3 mL Inhalation Solution NEB SCH ×4 (07:28→20:30)
[2017-05-04] MEDS: oxyCODONE ER 10 mg ER12 Tablet PO SCH ×2 (08:43→20:29)
[2017-05-04] MEDS: Tiotropium 18mcg/Cap 5 Capsule Inhaler Kit INHALATION SCH (08:44)
[2017-05-04] MEDS: Fluticasone-Salmeterol 500-50 Inhaler INHALATION SCH ×2 (08:44→20:29)
[2017-05-04] MEDS: Potassium Chloride 20 mEq SR Tablet PO SCH (08:44)
[2017-05-04 11:16] LABS: BASOPHILS % (AUTO) 0.7 % (0-3); EOSINOPHILS % (AUTO) 21.2 % (0-5); MONOCYTES % (AUTO) 12.7 % (4-12); Mean Corpuscular Hemoglobin 29.5 pg (27.0-35.0); Mean Corpuscular Volume 92.9 fL (81-100); NEUTROPHILS % (AUTO) 49.4 % (40-74); Platelet Count 316 bil/L (150-400)
--- NOTE | 2017-05-04 15:24 | PCM.PNMED ---
Subjective Date of Service May 04, 2017 Subjective Denies any new issues/complaints but asking for IV pain medication before being moved and before wound care Exam Vital Signs Vital Sign - Last Date Time Temp Pulse Resp B/P Pulse Ox O2 Delivery O2 Flow Rate FiO2 05/04/17 14:30 36.7 120 16 110/65 95 Nasal Cannula 1.00 Intake and Output 05/03/17 05/03/17 05/04/17 Cumulative From/Thru 15:00 23:00 07:00 04/29/17 17:01 - 05/04/17 06:24 Intake Total 700 ml 753 ml 8165 ml Output Total 1200 ml 900 ml 75644 ml Balance -500 ml -147 ml -3535 ml Intake Oral 700 ml 400 ml 5393 ml IV Total 353 ml 2772 ml Output Urine Total 1200 ml 900 ml 47202 ml # Bowel Movements 5 2 9 Exam General: Alert, Cooperative, No Acute Distress Head: Normal Eyes: Scleral Anicteric Nose: Mucous Membr Moist/[place] Mouth: Mucous Membr Moist/[place] Neck: Supple Chest & Lungs: Chest Wall Normal, Clear to auscultation bilat Cardiovascular: Regular Rate/Rhythm Abdomen: Non-tender, Non-distended, Normoactive bowel tones, Soft Neurological: Grossly Neurologically Intact, Normal Speech IVs and Medications Medications Reviewed: Medications were reviewed in detail Lab and Diagnostics Result Diagram: 05/04/1781405/04/17814 X-Rays, CTs and MRIs X-RAY CHEST ONE VIEW, PORTABLE IMPRESSION: 1. Mild pulmonary edema redemonstrated without acute consolidation. Dictated by: German Zuniga M.D. on 04/29/2017 at 22:06 X-RAY PELVIS W/LAT HIP (LT)ns. IMPRESSION: 1. 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 Associated avascular necrosis of the femoral head cannot be excluded. Dictated by: German Zuniga M.D. on 04/29/2017 at 22:08 Cardiac Echo Impressions Date of Service: 05/02/17 0806 Echocardiogram Report Interpretation Summary The study quality was technically limited. The left ventricular ejection fraction is grossly normal. The right ventricle is borderline dilated. The right ventricular systolic function is normal. There is no Doppler evidence for an interatrial shunt. There is no significant valvular heart disease. Electronically signed by: Inocencio Olivarez on Reading Physician:05/02/2017 12:24 PM Assessment & Plan 71-year-old male with past medical history of CHF, pulmonary hypertension, lower extremity edema, C. difficile and MRSA, hypertension and diabetes who presents to ED from SNF via EMS secondary to upward trend of leukocytosis. # Sepsis. Acute. Present on admission. Seemed to have had resolved but with fever, tachycardia, hypotension, and worsening leukocytosis again on 05/03/17 - Continue with IV fluid - Hold further diuretics and BP meds until hemodynamically more stable - Further treatment as noted below - Consider restarting systemic antibiotics pending further workup # Chronic sacral decubitus ulcer. Present on admission. - Appreciate ID consult. Will followup with recs - Active systemic infection seemed unlikely as of 05/02, per ID - Stopped IV antibiotics on 05/02/17 per ID - Appreciate surgery consult. Will followup with recs - Concern for possible developing fistula, seems unlikely but will followup with barium enema per surgery consult. # C. difficile diarrhea. Possible acute on chronic. Present on admission - Continue oral Vancomycin for a total course of two weeks - Patient refusing rectal tube # Hip pain. Chronic. Present on admission - Imaging shows possible avascular necrosis - Continue pain management - Continue with IV Dilaudid as needed # Anemia. Chronic. Present on admission. Ongoing - h/h stable - No sign of active bleeding - Further workup and followup as outpatient # Diastolic congestive heart failure. Chronic. Present on admission. Stable - Last echo from 2012 shows EF 50-55% (reduced from prior study), right ventricular enlargement - Troponin mildly elevated - Repeat Echo shows intact EF - Hold diuretics (Torsemide and Spironolactone) as noted above # Hypertension. Chronic. Not present on admission. - Currently hypotensive - IVF and hold BP meds as noted above # COPD. Present on admission. Stable - DuoNeb's when necessary # Reported Diabetes. Present on admission. - Blood sugars stable without intervention - Stop Insulin sliding scale # Morbid obesity. Chronic. Present on admission. Ongoing - BMI 44.4 # Gout. Present on admission. Chronic. Stable - Continue home Allopurinol - Continue home Colchicine # GERD present on admission. Stable - Continue home Famotidine # HLD. Chronic. Present on admission. Stable - Continue home Atorvastatin Dispo: 2-3 days GI Prophylaxis: H2 stephanie VTE Prophylaxis: SCDs Resuscitation Status: CPR: Attempt Resuscitation Julio Swenson May 04, 2017 15:24
--- NOTE | 2017-05-04 18:38 | NUR ---
Dressing changes Changed right inner buttocks pressure ulcer dressing x2 d/t stool incontinency. Change per wound care instructions: cleaned with saline, packed with wet gauze, and applied mepolex dressing. Minimal serosanguineous drainage.
[2017-05-05] VITALS (9 sets, daily range): BP systolic 90–105; BP diastolic 47–65; PULSE 51–114; RESP 16–18; O2SAT 91–100
[2017-05-05] MEDS: Vancomycin 125 mg Oral Capsule PO SCH ×4 (00:23→18:27)
[2017-05-05] MEDS: HYDROmorphone 1 mg/mL Inj IVPUSH PRN ×5 (04:29→22:12)
--- NOTE | 2017-05-05 06:38 | NUR ---
NOC/Dressing changed Pt is alert and oriented. Dressings change on pt's left decubitus ulcer per wound care instructions. HS meds and Oral ABx administered as scheduled. Pt's BP has been running low but is trending the same. Denies chest pain, sob, n/v or abd discomfort. Still reports of pain on left hip when turning and repositioning. Intentional hourly rounding done.
[2017-05-05 06:49] LABS: Mean Corpuscular Hemoglobin 28.8 pg (27.0-35.0); Mean Corpuscular Volume 92.8 fL (81-100)
[2017-05-05] MEDS: Albuterol 2.5 mg/3 mL Inhalation Solution NEB SCH ×4 (07:42→20:58)
[2017-05-05] MEDS: Potassium Chloride 20 mEq SR Tablet PO SCH (07:58)
[2017-05-05] MEDS: Tiotropium 18mcg/Cap 5 Capsule Inhaler Kit INHALATION SCH (07:59)
[2017-05-05] MEDS: oxyCODONE ER 10 mg ER12 Tablet PO SCH ×2 (07:59→22:11)
[2017-05-05] MEDS: Fluticasone-Salmeterol 500-50 Inhaler INHALATION SCH ×2 (08:00→22:11)
--- NOTE | 2017-05-05 14:09 | PCM.PNMED ---
Subjective Date of Service May 05, 2017 Subjective Denies any new issues/complaints Exam Vital Signs Vital Sign - Last Date Time Temp Pulse Resp B/P Pulse Ox O2 Delivery O2 Flow Rate FiO2 05/05/17 12:57 51 18 93 Nasal Cannula 1.00 05/05/17 12:27 36.5 105/65 Intake and Output 05/04/17 05/04/17 05/05/17 Cumulative From/Thru 15:00 23:00 07:00 04/29/17 17:01 - 05/05/17 06:12 Intake Total 1157 ml 300 ml 9622 ml Output Total 600 ml 580 ml 48802 ml Balance 557 ml -280 ml -3258 ml Intake Oral 1040 ml 300 ml 6733 ml IV Total 117 ml 2889 ml Output Urine Total 600 ml 580 ml 28818 ml # Bowel Movements 2 2 13 Exam General: Alert, Cooperative, No Acute Distress Head: Normal Eyes: Scleral Anicteric Nose: Mucous Membr Moist/[place] Mouth: Mucous Membr Moist/[place] Neck: Supple Chest & Lungs: Chest Wall Normal, Clear to auscultation bilat Cardiovascular: Regular Rate/Rhythm Abdomen: Non-tender, Non-distended, Normoactive bowel tones, Soft Neurological: Grossly Neurologically Intact, Normal Speech IVs and Medications Medications Reviewed: Medications were reviewed in detail Lab and Diagnostics Result Diagram: 05/05/1763405/05/17 0635 X-Rays, CTs and MRIs X-RAY CHEST ONE VIEW, PORTABLE IMPRESSION: 1. Mild pulmonary edema redemonstrated without acute consolidation. Dictated by: German Zuniga M.D. on 04/29/2017 at 22:06 X-RAY PELVIS W/LAT HIP (LT)ns. IMPRESSION: 1. 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 Associated avascular necrosis of the femoral head cannot be excluded. Dictated by: German Zuniga M.D. on 04/29/2017 at 22:08 Cardiac Echo Impressions Date of Service: 05/02/17 0806 Echocardiogram Report Interpretation Summary The study quality was technically limited. The left ventricular ejection fraction is grossly normal. The right ventricle is borderline dilated. The right ventricular systolic function is normal. There is no Doppler evidence for an interatrial shunt. There is no significant valvular heart disease. Electronically signed by: Inocencio Olivarez on Reading Physician:05/02/2017 12:24 PM Assessment & Plan 71-year-old male with past medical history of CHF, pulmonary hypertension, lower extremity edema, C. difficile and MRSA, hypertension and diabetes who presents to ED from SNF via EMS secondary to upward trend of leukocytosis. # Sepsis. Acute. Present on admission. Seemed to have had resolved but with fever, tachycardia, hypotension, and worsening leukocytosis again on 05/03/17. Seems to be improving again - Hold IV fluid - Continue to hold diuretics and BP meds until hemodynamically more stable - Further treatment as noted below - Consider restarting systemic antibiotics if further fever # Chronic sacral decubitus ulcer. Present on admission. - Appreciate ID consult. Will followup with recs - Active systemic infection seemed unlikely as of 05/02, per ID - Stopped IV antibiotics on 05/02/17 per ID - Appreciate surgery consult. Will followup with recs - Concern for possible developing fistula, seems unlikely but will followup with barium enema scheduled for tomorrow # C. difficile diarrhea. Possible acute on chronic. Present on admission. Improving - Continue oral Vancomycin for a total course of two weeks - Patient refusing rectal tube # Hip pain. Chronic. Present on admission - Imaging shows possible avascular necrosis - Continue pain management - Continue with IV Dilaudid as needed # Anemia. Chronic. Present on admission. Ongoing - h/h stable - No sign of active bleeding - Further workup and followup as outpatient # Diastolic congestive heart failure. Chronic. Present on admission. Stable - Last echo from 2012 shows EF 50-55% (reduced from prior study), right ventricular enlargement - Troponin mildly elevated - Repeat Echo shows intact EF - Hold diuretics (Torsemide and Spironolactone) as noted above # Hypertension. Chronic. Not present on admission. - Currently hypotensive to normotensive - IVF and hold BP meds as noted above # COPD. Present on admission. Stable - DuoNeb's when necessary # Reported Diabetes. Present on admission. - Blood sugars stable without intervention - Stop Insulin sliding scale # Morbid obesity. Chronic. Present on admission. Ongoing - BMI 44.4 # Gout. Present on admission. Chronic. Stable - Continue home Allopurinol - Continue home Colchicine # GERD present on admission. Stable - Continue home Famotidine # HLD. Chronic. Present on admission. Stable - Continue home Atorvastatin Dispo: 1-2 days GI Prophylaxis: H2 stephanie VTE Prophylaxis: SCDs Resuscitation Status: CPR: Attempt Resuscitation Julio Swenson May 05, 2017 14:09
--- NOTE | 2017-05-05 14:25 | PROG NOTE ---
[address] [address] PROGRESS NOTE PATIENT: DEMOND HINKLE : 1945 MR#: [id number] ADMIT: 04/29/2017 JOB ID: [id number] DATE: NOTE: The patient remains afebrile, stable vital signs. Per his nurse, wound care has been essentially unchanged since Saturday. Barium enema was ordered on Saturday but appears it will be done on a routine basis on Saturday morning. General Surgery will continue to follow with wound care.
--- NOTE | 2017-05-05 14:26 | NUR ---
Social Work: Readiness for Discharge D: EMR reviewed. Pt is on day 6 of hospitalization. Per MD, pt is likely to stay in hospital for another 24 hours. Pt will discharge on POABX - which will be determine by ID at discharge. Pt has been accepted to return to [facility] with Dr. Agrawal to follow. SW updated pt that the he has 39 more MCR days left at [facility] as of 05/03. SW provided access to [facility]. SW to follow for POABX at discharge. SW will continue to follow. A: Pt who resides at [facility] with a wheelchair at baseline. P: Pt to return to [facility] with Dr. Agrawal to follow. SW to update [facility] of POABX at discharge. SW will continue to follow. ABELARDO Whittington
--- NOTE | 2017-05-05 14:51 | NUR ---
dressing change Changed right inner gluteal decubitus tunneling ulcer dressing X2 per wound care instructions. Wound had very minimal serosanguineous drainage on gauze, left upper hip skin is macerated where old scar tissue is; applied barrier cream.
--- NOTE | 2017-05-05 14:55 | NUR ---
Patient refusing Q2 turns Pt has refused q2 turns throughout entire shift. This RN explained to the patient the importance of the turning schedule and that his skin is becoming more macerated. Pt still refused and only allowed staff to turn him to clean him when he was incontinent of stool.
[2017-05-06] VITALS (7 sets, daily range): BP systolic 91–115; BP diastolic 60–76; PULSE 85–96; RESP 18–20; O2SAT 92–97
[2017-05-06] MEDS: Vancomycin 125 mg Oral Capsule PO SCH ×3 (00:18→12:31)
[2017-05-06] MEDS: HYDROmorphone 1 mg/mL Inj IVPUSH PRN ×4 (04:56→21:20)
--- NOTE | 2017-05-06 06:17 | NUR ---
NOC/Dressing change Pt denies chest pain, sob, n/v or abd discomfort. Has been pleasant and cooperative with care. Reports of hip pain when turning and repositioning. IV dilaudid and oxycodone administered before incontinence cleaning. Noted pt still having loose extra large bm, that soak the decubitus ulcer. Cleaned wound with salined gauzed and applied moist gauze and covered with mepilex dressing. Pt's VSS and has been afebrile. HS meds administered as scheduled. Intentional hourly rounding done and pt has slept most of the night.
[2017-05-06] MEDS: Albuterol 2.5 mg/3 mL Inhalation Solution NEB SCH ×4 (07:10→21:17)
[2017-05-06] MEDS: Potassium Chloride 20 mEq SR Tablet PO SCH (08:00)
[2017-05-06] MEDS: Fluticasone-Salmeterol 500-50 Inhaler INHALATION SCH ×2 (08:30→20:15)
[2017-05-06] MEDS: Tiotropium 18mcg/Cap 5 Capsule Inhaler Kit INHALATION SCH (08:30)
[2017-05-06] MEDS: oxyCODONE ER 10 mg ER12 Tablet PO SCH ×2 (09:26→20:14)
--- NOTE | 2017-05-06 09:42 | NUR ---
JONH Signed @ 015LM
--- NOTE | 2017-05-06 13:03 | PCM.PNSURG ---
Subjective Date of Service: May 06, 2017 Date of Service: May 06, 2017 Visit Information: Reason for Visit Sepsis Surgery/Surgery Date Post-Op Day # Date of Admission: Apr 29, 2017 at 23:45 Hospital Day #8 Subjective: Patient notes no new problems with sacral wound. Denies f/c. Understands plan for gastrografin enema on Sat, 05/08 including need for preprocedure bowel prep starting tomorrow. Postop General: No Complaints Gastrointestinal: Tolerating Oral Feedings Objective Vital Sign- Last 8 Hours Date Time Temp Pulse Resp B/P Pulse Ox O2 Delivery O2 Flow Rate FiO2 05/06/17 12:35 89 20 93 Nasal Cannula 1.00 05/06/17 12:02 36.4 85 19 115/76 96 Nasal Cannula 1.00 05/06/17 09:00 Supplement Oxygen 05/06/17 07:10 92 20 94 Nasal Cannula 1.00 05/06/17 05:41 36.5 92 18 91/63 97 Nasal Cannula 1.00 Intake and Output- Last 8 Hour 05/06/17 Cumulative From/Thru 07:00 04/29/17 17:01 - 05/06/17 06:37 Intake Total 124 ml 07062 ml Output Total 76969 ml Balance 124 ml -1920 ml Intake Oral 8413 ml IV Total 124 ml 3147 ml Output Urine Total 58350 ml # Bowel Movements 17 General: Alert, Oriented X3 Lungs: Clear to Auscultation Heart: Exam Unremarkable SURGICAL WOUND : Wound Location/Description Not examined today. Result Diagram: 05/05/17 0635 05/06/17 0545 Assessment & Plan Impression Sacral decubitus ulcer - Clears until enema study on Sat - colyte 1L q hr start 4pm tomorrow until 9 (total 5L) - continute cld until tomorrow MN - 2 dulcolax tabs at HS tomorrow - NPO p MN tomorrow nite - dulcolax supp Wed am 2h a procedure Patient aware of plan Problems: (1) Sepsis Qualifiers: Sepsis type: sepsis due to unspecified organism Qualified Code: A41.9 - Sepsis, unspecified organism Status: Acute ICD Code: A41.9 (2) Non-healing surgical wound Onset Date: 02/11/2012 Status: Resolved ICD Code: 998.83 VTE Prophylaxis: SCDs Resuscitation Status: CPR: Attempt Resuscitation Kodak Dailey PA-C May 06, 2017 13:03
--- NOTE | 2017-05-06 14:13 | PCM.PNMED ---
Subjective Date of Service May 06, 2017 Subjective Denies any new issues/complaints Exam Vital Signs Vital Sign - Last Date Time Temp Pulse Resp B/P Pulse Ox O2 Delivery O2 Flow Rate FiO2 05/06/17 12:35 89 20 93 Nasal Cannula 1.00 05/06/17 12:02 36.4 115/76 Intake and Output 05/05/17 05/05/17 05/06/17 Cumulative From/Thru 15:00 23:00 07:00 04/29/17 17:01 - 05/06/17 06:37 Intake Total 1814 ml 124 ml 97259 ml Output Total 600 ml 54086 ml Balance 1214 ml 124 ml -1920 ml Intake Oral 1680 ml 8413 ml IV Total 134 ml 124 ml 3147 ml Output Urine Total 600 ml 29616 ml # Bowel Movements 4 17 Exam General: Alert, Cooperative, No Acute Distress Head: Normal Eyes: Scleral Anicteric Nose: Mucous Membr Moist/[place] Mouth: Mucous Membr Moist/[place] Neck: Supple Chest & Lungs: Chest Wall Normal, Clear to auscultation bilat Cardiovascular: Regular Rate/Rhythm Abdomen: Non-tender, Non-distended, Normoactive bowel tones, Soft Neurological: Grossly Neurologically Intact, Normal Speech IVs and Medications Medications Reviewed: Medications were reviewed in detail Lab and Diagnostics Result Diagram: 05/05/17 0635 05/06/17 0545 X-Rays, CTs and MRIs X-RAY CHEST ONE VIEW, PORTABLE IMPRESSION: 1. Mild pulmonary edema redemonstrated without acute consolidation. Dictated by: German Zuniga M.D. on 04/29/2017 at 22:06 X-RAY PELVIS W/LAT HIP (LT)ns. IMPRESSION: 1. 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 Associated avascular necrosis of the femoral head cannot be excluded. Dictated by: German Zuniga M.D. on 04/29/2017 at 22:08 Cardiac Echo Impressions Date of Service: 05/02/17 0806 Echocardiogram Report Interpretation Summary The study quality was technically limited. The left ventricular ejection fraction is grossly normal. The right ventricle is borderline dilated. The right ventricular systolic function is normal. There is no Doppler evidence for an interatrial shunt. There is no significant valvular heart disease. Electronically signed by: Inocencio Olivarez on Reading Physician:05/02/2017 12:24 PM Assessment & Plan 71-year-old male with past medical history of CHF, pulmonary hypertension, lower extremity edema, C. difficile and MRSA, hypertension and diabetes who presents to ED from SNF via EMS secondary to upward trend of leukocytosis. # Sepsis. Acute. Present on admission. Seemed to have had resolved but with fever, tachycardia, hypotension, and worsening leukocytosis again on 05/03/17. Seems to be improving again - Hold IV fluid - Continue to hold diuretics and BP meds until hemodynamically more stable - Further treatment as noted below # Chronic sacral decubitus ulcer. Present on admission. - Appreciate ID consult. Will followup with recs - Active systemic infection seemed unlikely as of 05/02, per ID - Stopped IV antibiotics on 05/02/17 per ID - Appreciate surgery consult. Will followup with recs - Concern for possible developing fistula, seems unlikely but will followup with barium enema scheduled for today # C. difficile diarrhea. Possible acute on chronic. Present on admission. Improving - Continue oral Vancomycin for a total course of two weeks - Patient refusing rectal tube # Hip pain. Chronic. Present on admission - Imaging shows possible avascular necrosis - Continue pain management - Continue with IV Dilaudid as needed # Anemia. Chronic. Present on admission. Ongoing - h/h stable - No sign of active bleeding - Further workup and followup as outpatient # Diastolic congestive heart failure. Chronic. Present on admission. Stable - Last echo from 2012 shows EF 50-55% (reduced from prior study), right ventricular enlargement - Troponin mildly elevated - Repeat Echo shows intact EF - Hold diuretics (Torsemide and Spironolactone) as noted above # Hypertension. Chronic. Not present on admission. - Currently hypotensive to normotensive - IVF and hold BP meds as noted above # COPD. Present on admission. Stable - DuoNeb's when necessary # Reported Diabetes. Present on admission. - Blood sugars stable without intervention - Stop Insulin sliding scale # Morbid obesity. Chronic. Present on admission. Ongoing - BMI 44.4 # Gout. Present on admission. Chronic. Stable - Continue home Allopurinol - Continue home Colchicine # GERD present on admission. Stable - Continue home Famotidine # HLD. Chronic. Present on admission. Stable - Continue home Atorvastatin Dispo: 1-2 days GI Prophylaxis: H2 stephanie VTE Prophylaxis: SCDs Resuscitation Status: CPR: Attempt Resuscitation Julio Swenson May 06, 2017 14:13
[2017-05-06] MEDS ORDERED: PEG/Electrolytes 4,000 mL Solution PO SCH (16:00)
--- NOTE | 2017-05-06 18:03 | NUR ---
Dressing change/pain/turning Right inner gluteal decubitus tunneling ulcer dressing changed X2 per wound care instructions. Minimal sero-sanguineous drainage on gauze. Mepilex place on R upper hip for macerated area. Pt tolerated dressing changed. Pain managed by 1 mg IV Dilaudid x 2 and scheduled pain medication. Pt refusing to allow staff to turn though out shift, in spite of education regarding importance for skin integrity. Call light in place, will continue to monitor.
--- NOTE | 2017-05-06 21:49 | PROG NOTE ---
[address] [address] PROGRESS NOTE PATIENT: DEMOND HINLKE : 1945 MR#: [id number] ADMIT: 04/29/2017 JOB ID: [id number] INFECTIOUS DISEASE FOLLOWUP: DATE: 05/06/2017 REASON FOR FOLLOWUP: A low-grade fever, and continued leukocytosis with extreme eosinophilia. INTERVAL HISTORY: The patient reports over the weekend that he had a single low-grade fever, which is the reason we were reconsulted. That was late Saturday night and the temperature was only 38.1, otherwise no fevers or chills. His respiratory status seems more less at baseline. He continues to have loose large volume stools and he refuses FMS so that the stools continuously coat his decubitus ulcers. Surgery is involved in trying to figure out whether he may have a fistula from the gut to the perirectal area but it seems more likely what is being found when he is turned is loose stool which is sort of forced up into the crevices of his decubitus ulcer. The patient also notes that he has developed a desquamating pruritic skin rash over the week or so he has been here at [facility]. Recall that when he came here he had a pronounced eosinophilia which, if anything, has worsened since admission. PHYSICAL EXAMINATION: Reveals an afebrile gentleman, in no acute distress. He is morbidly obese. Temperature 36.4, pulse 89, respiratory rate 20, blood pressure 115/76, saturating well on 1 L. He has a desquamating rash which is not associated with the formation of any bullae and this is present over his extremities as well as his torso and his scalp. This is new in the past few days. His lungs are clear but distant. Cardiac tones regular but distant. Abdomen massively obese, soft, and nontender. He cannot be rolled over to be examined without a major undertaking and we did not look today. LABORATORIES: Include white count 16,000 which is really relatively constant since admission. He now has 21% eosinophils though for a total use eosinophil count of greater than 3000. His hematocrit is 24. His platelet count is 319. His creatinine is 1.25. Procalcitonin 0.46. His liver function tests are normal. Urinalysis without white cells. Micro studies are negative except for the stool for C. diff which was noted on April 30 but had been known previously. 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 IMPRESSION: This is a complicated case which is getting more so. I again do not think that he is significantly infected. His white count is really about 15,000 consistently ever since he came back a week ago and it goes up or down 1000 or two. What is impressive is that over 3000 of his white cells are actually eosinophils and it is now associated with a desquamated rash which strongly suggests a drug reaction. He has never lived in an area where Strongyloides is endemic and his last time in [place] was about six or seven years ago making coccidial mycosis very unlikely. He has a large ongoing decubitus ulcer, which according to my discussions with Wound Management and Surgery does not look to be infected. RECOMMENDATIONS: 1. Will DC his oral vancomycin as I am concerned that vancomycin by either the oral or IV route may be contributing to this problem. 2. We will instead treat the patient with fidaxomicin for his C. difficile. 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 This is a 10-day course of therapy. 3. This patient is receiving both allopurinol and colchicine which are capable of producing the DRESS syndrome or other severe drug related toxicities. I would strongly consider moving the patient off these medicines if there are any other choices available because of the risk of progressive eosinophilia and skin reaction.Discussed in person with hospitalist. ZABRINA
[2017-05-07] VITALS (7 sets, daily range): BP systolic 91–99; BP diastolic 58–66; PULSE 84–92; RESP 16–20; O2SAT 91–100
[2017-05-07] MEDS: HYDROmorphone 1 mg/mL Inj IVPUSH PRN ×5 (01:36→20:47)
--- NOTE | 2017-05-07 06:16 | NUR ---
NOC/Pain Pt reports of increasing pain on hip even without turning and repositioning. Administered IV Dilaudid and PO oxycodone PRN for pain control. Pt states it's partially effective. Denies however, chest pain, sob, n/v or abd discomfort. Has been on 1LPM NC and has been saturating 94%. Explained to pt the plan regarding bowel preparation tonight and the barium enema to be done on Saturday. Pt verbalizes understanding, but is a little anxious about being in pain due to frequent clean ups due to incontinent of diarrhea. Reassure the pt that we will try our best to provide care with controlled pain as much as possible. Intentional hourly rounding in effect, VSS and has been afebrile throughout the night. Dressing change on pt's decubitus ulcer per wound care instructions.
[2017-05-07 06:43] LABS: BASOPHILS % (AUTO) 0.7 % (0-3); EOSINOPHILS % (AUTO) 31.5 % (0-5); MONOCYTES % (AUTO) 9.9 % (4-12); Mean Corpuscular Volume 95.3 fL (81-100); NEUTROPHILS % (AUTO) 41.9 % (40-74); Platelet Count 349 bil/L (150-400)
[2017-05-07] MEDS: Albuterol 2.5 mg/3 mL Inhalation Solution NEB SCH ×4 (07:33→21:00)
[2017-05-07] MEDS: Fluticasone-Salmeterol 500-50 Inhaler INHALATION SCH ×2 (07:57→22:24)
[2017-05-07] MEDS: Tiotropium 18mcg/Cap 5 Capsule Inhaler Kit INHALATION SCH (07:59)
[2017-05-07] MEDS: Potassium Chloride 20 mEq SR Tablet PO SCH (07:59)
[2017-05-07] MEDS: oxyCODONE ER 10 mg ER12 Tablet PO SCH ×2 (08:01→20:47)
--- NOTE | 2017-05-07 14:21 | PCM.PNMED ---
Subjective Date of Service May 07, 2017 Subjective Complains of worsening LE edema Exam Vital Signs Vital Sign - Last Date Time Temp Pulse Resp B/P Pulse Ox O2 Delivery O2 Flow Rate FiO2 05/07/17 13:19 36.7 92 18 91/59 95 Nasal Cannula 1.00 Intake and Output 05/06/17 05/06/17 05/07/17 Cumulative From/Thru 14:59 22:59 06:59 04/29/17 17:01 - 05/07/17 06:58 Intake Total 400 ml 511 ml 722 ml 35695 ml Output Total 550 ml 600 ml 700 ml 21652 ml Balance -150 ml -89 ml 22 ml -2137 ml Intake Oral 400 ml 400 ml 600 ml 9813 ml IV Total 111 ml 122 ml 3380 ml Output Urine Total 550 ml 600 ml 700 ml 10940 ml # Bowel Movements 1 4 2 24 Exam General: Alert, Cooperative, No Acute Distress Head: Normal Eyes: Scleral Anicteric Nose: Mucous Membr Moist/[place] Mouth: Mucous Membr Moist/[place] Neck: Supple Chest & Lungs: Chest Wall Normal, Clear to auscultation bilat Cardiovascular: Regular Rate/Rhythm Abdomen: Non-tender, Non-distended, Normoactive bowel tones, Soft Neurological: Grossly Neurologically Intact, Normal Speech IVs and Medications Medications Reviewed: Medications were reviewed in detail Lab and Diagnostics Result Diagram: 05/07/17 0550 05/07/17 0550 X-Rays, CTs and MRIs X-RAY CHEST ONE VIEW, PORTABLE IMPRESSION: 1. Mild pulmonary edema redemonstrated without acute consolidation. Dictated by: German Zuniga M.D. on 04/29/2017 at 22:06 X-RAY PELVIS W/LAT HIP (LT)ns. IMPRESSION: 1. 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 Associated avascular necrosis of the femoral head cannot be excluded. Dictated by: German Zuniga M.D. on 04/29/2017 at 22:08 Cardiac Echo Impressions Date of Service: 05/02/17 0806 Echocardiogram Report Interpretation Summary The study quality was technically limited. The left ventricular ejection fraction is grossly normal. The right ventricle is borderline dilated. The right ventricular systolic function is normal. There is no Doppler evidence for an interatrial shunt. There is no significant valvular heart disease. Electronically signed by: Inocencio Olivarez on Reading Physician:05/02/2017 12:24 PM Assessment & Plan 71-year-old male with past medical history of CHF, pulmonary hypertension, lower extremity edema, C. difficile and MRSA, hypertension and diabetes who presents to ED from SNF via EMS secondary to upward trend of leukocytosis. # Sepsis. Acute. Present on admission. Seemed to have had resolved but with fever, tachycardia, hypotension, and worsening leukocytosis again on 05/03/17. Seems to be improving again - Hold IV fluid - Further treatment as noted below # Acute eosinophils present on admission. Ongoing and worse - Associated with a desquamated rash - ? drug reaction - Stopping PO Vanco and Allopurinol on 05/06 per ID recs - Followup # Chronic sacral decubitus ulcer. Present on admission. - Appreciate ID consult. Will followup with recs - Active systemic infection seemed unlikely as of 05/02, per ID - Stopped IV antibiotics on 05/02/17 per ID - Appreciate surgery consult. Will followup with recs - Concern for possible developing fistula, seems unlikely but will followup with barium enema scheduled for tomorrow # C. difficile diarrhea. Possible acute on chronic. Present on admission. Improving - Oral Vancomycin stopped on 05/06 per ID rec due to concern for ongoing and worsening eosinophilia # Hip pain. Chronic. Present on admission - Imaging shows possible avascular necrosis - Continue pain management - Continue with IV Dilaudid as needed - ? need for ortho consult # Anemia. Chronic. Present on admission. Ongoing - h/h stable - No sign of active bleeding - Further workup and followup as outpatient # Diastolic congestive heart failure. Chronic. Present on admission. acute exacerbation with worsening LE edema - Last echo from 2012 shows EF 50-55% (reduced from prior study), right ventricular enlargement - Troponin mildly elevated - Repeat Echo shows intact EF - Diuretics (Torsemide and Spironolactone) have been on hold since 05/03 due to hypotension and concern for sepsis - Will resume diuretics cautiously pending stable BP # Hypertension. Chronic. Not present on admission. - Currently hypotensive to normotensive - Hold BP meds and cautious diuretic # COPD. Present on admission. Stable - DuoNeb's when necessary # Reported Diabetes. Present on admission. - Blood sugars stable without intervention - Stop Insulin sliding scale # Morbid obesity. Chronic. Present on admission. Ongoing - BMI 44.4 # Gout. Present on admission. Chronic. Stable - Hold Allopurinol since 05/06 given concern for drug reaction causing eosinophilia # GERD present on admission. Stable - Continue home Famotidine # HLD. Chronic. Present on admission. Stable - Continue home Atorvastatin Dispo: 1-2 days GI Prophylaxis: H2 stephanie VTE Prophylaxis: SCDs Resuscitation Status: CPR: Attempt Resuscitation Julio Swenson May 07, 2017 14:21
[2017-05-07] MEDS ORDERED: Furosemide 10 mg/mL 2 mL Inj IVPUSH ONE (14:40)
--- NOTE | 2017-05-07 15:38 | NUR ---
NUTRITION FOLLOW-UP: ASSESS: 71 YO male admitted for sepsis, with c-diff and sacral decub ulcer. Pt is currently on clear liquids and will be NPO tomorrow for barium enema to look for possible developing fistula. PMHx: CHF with chronic cor pulmonale, pulm HTN, lower extremity edema, C-diff, MRSA, HTN, diabetes, COPD, diverticulosis, CAD, morbid obesity, CKD stage V, Gout GERD. LABS: Reviewed. BUN 31. MEDS: Reviewed. GI: C-Diff diarrhea, BM x 2 (05/07) SKIN: Sacral decub stage III per wound care note. CURRENT WT: 140.9 kg. Adj BW: 90.67 kg. (Wt in 2013 was 176.9 kg, unclear if wt loss was intentional or not at this time) DIET: Clear liquids. Po was 100% of meals prior to clear liquid diet. EST. NEEDS (WOUND, BMI): 7323-0244 kcals (25-35 kcals/kg Adj BW), 90-135 g protein (1.0-1.5 g/kg Adj BW) NUTRITION DIAGNOSIS: 1.) Increased nutrient needs related to increased demand for nutrients as evidenced by chronic sacral decub, stage III--PERSISTS. NUTRITION INTERVENTION: 1.) Recommend restarting Santana with diet sprite BID and Glucerna all trays once diet advanced. MONITOR / EVAL: Diet advancement / tolerance, PO intake, labs, nutritional status. Follow per moderate nutritional risk guidelines.
[2017-05-07 15:41] LABS: Bilirubin, Direct < 0.2 mg/dL (0.0-0.3)
[2017-05-07] MEDS ORDERED: PEG/Electrolytes 4,000 mL Solution PO SCH (16:00)
--- NOTE | 2017-05-07 16:16 | NUR ---
GoLytely Pt started GoLytely prep this afternoon at 1600. Discussed possibility of FMS, pt adamently REFUSED stating, "No! That hurt last time." Pt req to have drsg to pressure sore on glut "left open" because "it makes no sense to get it dirty all time... that's wasteful!" Educated pt on importance of keeping wound as clean as possible in an effort to promote wound healing. Pt stated he understood. Addendum: 05/07/17 at 1916 by KISHA YANES RN Pt having copious amounts of loose, brown stool following start of GoLytely. Frequently changing pads and changing pressure ulcer site to R glut in an attempt to keep clean and promote healing.
--- NOTE | 2017-05-07 16:22 | PROG NOTE ---
[address] [address] PROGRESS NOTE PATIENT: DEMOND HINKLE : 1945 MR#: [id number] ADMIT: 04/29/2017 JOB ID: [id number] DATE: 05/07/2017 REASON FOR FOLLOWUP: Eosinophilia with rash in a patient with underlying C. difficile. INTERVAL HISTORY: The patient reports his skin rash has become less pruritic. Note that this rash is on the torso, upper extremities, as well as lower extremities. He has had no fevers, chills, or sweats. No significant new shortness of breath, either. PHYSICAL EXAMINATION: Reveals a morbidly obese gentleman in no acute distress. His temperature is 36.7, pulse 92, respiratory rate 18, blood pressure 91/59, saturating well on 1 L. Examination of the oral cavity is unremarkable. The lungs were auscultated from the posterior aspect and are reasonably clear bilaterally. The skin rash continues to be a superficial desquamating-type rash over the upper extremities and torso primarily, but also extending down onto the legs. There is no deeper loss of tissue and no slough of mucous membranes noted. The patient's buttocks were carefully examined during the dressing change. The patient has a well-circumscribed, about 3 cm ulcer with undermining present on the left buttock. This ulcer appears clean and uninfected. LABORATORY STUDIES: Include white count 15,000, hematocrit 24, platelet count 349,000. Creatinine is 1.16. LFTs just done today, as we had just ordered them, completely normal. Note that in the white blood count, the patient continues to have 31% eosinophils for a total eosinophil count of almost 5000. Blood cultures from May 04 are negative. We have no new imaging studies. IMPRESSION: This is a complex case of a gentleman who has a decubitus ulcer which, at this point, appears uninfected. He was transferred here from a residential facility because of concerns regarding leukocytosis, but this leukocytosis continues to be driven by a profound eosinophilia which has been present since admission. This has been accompanied in the past couple days with relatively shallow desquamating and pruritic rash over most of the patient's surface area. He currently has a progressive eosinophilia now to nearly 5000. 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 Yesterday, we switched the patient off vancomycin out of concern that that might be part of this process and he is now on Dificid as his only agent for C. difficile. Other possible agents would include allopurinol or colchicine and yesterday Dr. Swenson stopped the allopurinol. RECOMMENDATIONS: 1. Continue with Dificid to complete a 10-day course. 2. No additional antibiotics are indicated at this time. 3. Close attention to the eosinophil count and his skin findings will be essential. The patient could require steroids depending on what happens with this eosinophilia. 4. ID will continue to follow this patient from a bit of a distance and will see him again on May 09.
[2017-05-08] MEDS: HYDROmorphone 1 mg/mL Inj IVPUSH PRN ×5 (03:38→20:11)
[2017-05-08 04:50] VITALS: BP 122/49; PULSE 77; RESP 16; O2SAT 93
[2017-05-08 06:40] LABS: BASOPHILS % (AUTO) 0.7 % (0-3); EOSINOPHILS % (AUTO) 28.7 % (0-5); MONOCYTES % (AUTO) 9.7 % (4-12); Mean Corpuscular Hemoglobin 29.9 pg (27.0-35.0); Mean Corpuscular Volume 95.6 fL (81-100); NEUTROPHILS % (AUTO) 48.7 % (40-74); Platelet Count 356 bil/L (150-400)
[2017-05-08] MEDS: oxyCODONE ER 10 mg ER12 Tablet PO SCH ×2 (07:38→21:16)
[2017-05-08] MEDS: Fluticasone-Salmeterol 500-50 Inhaler INHALATION SCH ×2 (07:39→21:07)
[2017-05-08] MEDS: Tiotropium 18mcg/Cap 5 Capsule Inhaler Kit INHALATION SCH (07:43)
[2017-05-08] MEDS: Potassium Chloride 20 mEq SR Tablet PO SCH ×2 (08:00→15:27)
[2017-05-08] MEDS ORDERED: Furosemide 10 mg/mL 2 mL Inj IVPUSH ONE (08:15)
[2017-05-08 08:34] VITALS: RESP 16; O2SAT 94
[2017-05-08] MEDS: Albuterol 2.5 mg/3 mL Inhalation Solution NEB SCH (08:34)
--- NOTE | 2017-05-08 09:18 | NUR ---
Social Work-readiness for discharge: Data:EMR reviewed. Pt is on day 9 of hospitalization for sepsis per H&P. Pt is not medically stable anticipate 1-2 more days. Pt has been residing at [facility] and will return there when ready. Pt is being followed by wound care and ID MD. Paperwork has been placed in the chart. SW will continue to follow. Assessment:Pt who will return to [facility]. Plan:Pt to discharge back to [facility] when medically stable. Paperwork has been placed in the chart. SW will continue to follow. ABELARDO Enriquez
--- NOTE | 2017-05-08 11:38 | NUR ---
JONH Signed @ [id number]
--- NOTE | 2017-05-08 13:07 | NUR ---
Barium study NPO this AM. Stools reducing in frequency and are light brown and very thin. Rolling to the side with stool catchment into bedpan and tolerating well. Escorted off floor via transport A&O and SL. BS of 63 and encouraged juice intake with meal planned for after procedure. Addendum: 05/08/17 at 1408 by SACHA ARAUJO RN Returned to floor. Confirmed diet with MD and lunch try ordered.
--- NOTE | 2017-05-08 14:27 | DRSVH ---
PROCEDURE: X-RAY ENEMA WITH GASTROGRAPHIN ([id number]) INDICATIONS: confirm no fistula from rectum to other site. COMPARISON: [facility], CR, XR PELVIS W LATERAL HIP LT, 04/29/2017, 21:31. [facility], CT, CT PELVIS WO CON, 05/08/2017, 13:35. FINDINGS: KUB: Preprocedural family practitioner film demonstrates a normal bowel gas pattern. No suspicious abdominal calc ifications. Visualized solid organ contours appear normal in size. No suspicious bony lesions. Sev ere narrowing of the left hip joint redemonstrated with flattening of the femoral head likely related to chronic avascular necrosis. Colon: Limited Gastrografin enema was performed with dilute Gastrografin filling the rectum, sigmoid and portions of the lower left colon. Although no definite extravasation of contrast media seen, the evaluation is severely limited as the patient was unable to be evaluated in a supine or prone projec tion. The patient was sent to the CAT scanner for limited pelvic CT scan. The attending physician wa s personally present in the room during the examination. IMPRESSION: Limited exam demonstrating opacification of the rectum, sigmoid and lower portion of the left colon demonstrate no gross extravasation of contrast media. Patient was sent for limited CT of the pelvis. Dictated by: Gurpreet MACK Interpreted: Jose Sigala MD on 05/08/2017 at 14:16 Transcribed by: SEMAJ on 05/08/2017 at 14:26 Approved by: Jose Sigala M.D. on 05/08/2017 at 16:31
--- NOTE | 2017-05-08 14:45 | DRSVH ---
PROCEDURE: CT PELVIS WITHOUT CONTRAST ([id number]) INDICATIONS: decub ulcer with possible fistula TECHNIQUE: Noncontrast 3 mm axial sections acquired through the bony pelvis, with coronal and sagittal reformatt ing. COMPARISON: [facility], CR, XR ENEMA GASTROGRAFIN, 05/08/2017, 13:08. [facility], CR, XR PELVIS W LATERAL HIP LT, 12/14/2015, 15:32. [facility], , [id number] W PEL IF PE RFORMED, 06/20/2016, 10:55. [facility], CR, XR PELVIS W LATERAL HIP LT, 04/29/2017, 21:31. [facility], , ABDOMEN 1 VIEW, 09/02/2016, 10:44. FINDINGS: Image quality: Diagnostic. Bones: No acute fracture or dislocation is identified involving the imaged pelvic osseous structures. No suspicious osseous lesions are present. A bony fusion of the sacroiliac joints are noted. Ther e are severe degenerative changes of the left hip with corresponding deformity of the superior acetab ulum and superior femoral head, probably related to previous trauma. There are moderate degenerative changes of the right hip. Soft tissues: There is adequate distention of the rectum and colon with the rectal contrast. No extr aluminal contrast is identified within the abdominal/pelvic cavity. Additionally, no contrast is see n within the perianal/gluteal region. There is a tubular area of soft tissue thickening/edema that c ontains air extending from the right gluteal/perianal region towards the level of the anal rectal kyara ction. However, no contrast extends into this tract. Additionally, no associated loculated fluid co llection is identified. This tract extends superiorly along the posterior margin of the sacrum. A Strauss catheter is present within a decompressed urinary bladder. The prostate is not enlarged. Wi thin the right iliac fossa there is a fluid collection identified that contains a small amount of ant i-dependent air. Alignment dependent aspect of this fluid collection, there are multifocal polygonal structures demonstrating increased attenuation. High attenuation contrast is seen within the rectum, sigmoid colon, and the imaged portions of the descending colon. At least one small colonic divertic ulum is present. High attenuation material in the dependent aspect of the fluid-filled proximal colo n (cecum and descending colon) is incidentally noted. Prominent soft tissue calcification is seen within the left gluteal region, unchanged since prior rad iographs. Lower aortic and iliac artery atherosclerosis is present. No hemal lymphadenopathy is appreciated. IMPRESSION: 1. Right perianal/gluteal decubitus ulcer with a small tract extending towards the anorectal region. None of the rectal contrast extends into this tract to suggest a definitive rectoanal-cutaneous fis mara. 2. Multiple polygonal shaped densities within a fluid-filled structure in the right iliac fossa prob ably represents a portion of the cecum with contrast trickling into this region. However, a loculate d fluid collection which communicates the bowel is difficult to completely excluded. If there is cli nical concern for an intraperitoneal process/abscess, a CT of the abdomen and pelvis with oral and in travenous contrast is recommended. 3. Deformity and severe degenerative changes of the left hip probably is related to previous trauma. Fusion of the sacroiliac joints is noted. Note: Findings were discussed with Dr. Swenson at 1440 hours on 05/08/17. Dictated by: Jose Sigala M.D. on 05/08/2017 at 14:23 Approved by: Jose Sigala M.D. on 05/08/2017 at 14:44
--- NOTE | 2017-05-08 15:21 | PCM.PNMED ---
Subjective Date of Service May 08, 2017 Subjective Denies any new issues/complaints Exam Vital Signs Vital Sign - Last Date Time Temp Pulse Resp B/P Pulse Ox O2 Delivery O2 Flow Rate FiO2 05/08/17 08:34 16 94 Nasal Cannula 1.00 05/08/17 04:50 36.4 77 122/49 Intake and Output 05/07/17 05/07/17 05/08/17 Cumulative From/Thru 15:00 23:00 07:00 04/29/17 17:01 - 05/08/17 06:49 Intake Total 108 ml 400 ml 53811 ml Output Total 900 ml 1025 ml 15116 ml Balance -792 ml -625 ml -3554 ml Intake Oral 0 ml 400 ml 64142 ml IV Total 108 ml 3488 ml Output Urine Total 900 ml 1025 ml 76267 ml # Bowel Movements 5 2 31 Exam General: Alert, Cooperative, No Acute Distress Head: Normal Eyes: Scleral Anicteric Nose: Mucous Membr Moist/[place] Mouth: Mucous Membr Moist/[place] Neck: Supple Chest & Lungs: Chest Wall Normal, Clear to auscultation bilat Cardiovascular: Regular Rate/Rhythm Abdomen: Non-tender, Non-distended, Normoactive bowel tones, Soft Neurological: Grossly Neurologically Intact, Normal Speech Extremity: 2+ pitting edema in LE bilat Skin: Dry with superficial desquamating-type rash over the upper extremities and torso primarily, but also extending down onto the legs. IVs and Medications Medications Reviewed: Medications were reviewed in detail Lab and Diagnostics Result Diagram: 05/08/17 0550 05/08/17 0550 X-Rays, CTs and MRIs X-RAY CHEST ONE VIEW, PORTABLE IMPRESSION: 1. Mild pulmonary edema redemonstrated without acute consolidation. Dictated by: German Zuniga M.D. on 04/29/2017 at 22:06 X-RAY PELVIS W/LAT HIP (LT)ns. IMPRESSION: 1. 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 Associated avascular necrosis of the femoral head cannot be excluded. Dictated by: German Zuniga M.D. on 04/29/2017 at 22:08 Cardiac Echo Impressions Date of Service: 05/02/17 0806 Echocardiogram Report Interpretation Summary The study quality was technically limited. The left ventricular ejection fraction is grossly normal. The right ventricle is borderline dilated. The right ventricular systolic function is normal. There is no Doppler evidence for an interatrial shunt. There is no significant valvular heart disease. Electronically signed by: Inocencio Olivarez on Reading Physician:05/02/2017 12:24 PM Assessment & Plan 71-year-old male with past medical history of CHF, pulmonary hypertension, lower extremity edema, C. difficile and MRSA, hypertension and diabetes who presents to ED from SNF via EMS secondary to upward trend of leukocytosis. # Sepsis. Acute. Present on admission. Seemed to have had resolved but with fever, tachycardia, hypotension, and worsening leukocytosis again on 05/03/17. Seems to be improving again - Hold IV fluid - Further treatment as noted below # Acute eosinophils present on admission. Ongoing - Associated with a desquamated rash - ? drug reaction - Stopping PO Vanco and Allopurinol on 05/06 per ID recs - Followup # Chronic sacral decubitus ulcer. Present on admission. - Appreciate ID consult. Will followup with recs - Active systemic infection seemed unlikely as of 05/02, per ID - Stopped IV antibiotics on 05/02/17 per ID - Appreciate surgery consult. Will followup with recs - Concern for possible developing fistula, seems unlikely but will followup with barium enema scheduled for today # C. difficile diarrhea. Possible acute on chronic. Present on admission. Improving - Oral Vancomycin stopped on 05/06 per ID rec due to concern for ongoing and worsening eosinophilia # Hip pain. Chronic. Present on admission - Imaging shows possible avascular necrosis - Continue pain management - Continue with IV Dilaudid as needed # Anemia. Chronic. Present on admission. Ongoing - h/h stable - No sign of active bleeding - Further workup and followup as outpatient # Diastolic congestive heart failure. Chronic. Present on admission. acute exacerbation with worsening LE edema - Last echo from 2012 shows EF 50-55% (reduced from prior study), right ventricular enlargement - Troponin mildly elevated - Repeat Echo shows intact EF - Diuretics (Torsemide and Spironolactone) have been on hold since 05/03 due to hypotension and concern for sepsis - Will resume diuretics cautiously - Additional IV Lasix today # Hypertension. Chronic. Not present on admission. - Currently hypotensive to normotensive - Hold BP meds and cautious diuresis # COPD. Present on admission. Stable - DuoNeb's when necessary # Reported Diabetes. Present on admission. - Blood sugars stable without intervention - Stop Insulin sliding scale # Morbid obesity. Chronic. Present on admission. Ongoing - BMI 44.4 # Gout. Present on admission. Chronic. Stable - Hold Allopurinol since 05/06 given concern for drug reaction causing eosinophilia # GERD present on admission. Stable - Continue home Famotidine # HLD. Chronic. Present on admission. Stable - Continue home Atorvastatin Dispo: pending above GI Prophylaxis: H2 stephanie VTE Prophylaxis: SCDs Resuscitation Status: CPR: Attempt Resuscitation Julio Swenson May 08, 2017 15:21
[2017-05-08 15:23] VITALS: BP 109/62; PULSE 97; RESP 18; O2SAT 92
--- NOTE | 2017-05-08 18:33 | NUR ---
Stool and pressure ulcer Pressure ulcer present on R buttock, PRN dressing changes, changed almost each stooling this shift. Stooling in left side lying position with placement of bedpan behind patient. Tolerating well and maintaining cleanliness of open wound.
[2017-05-08 23:10] VITALS: BP 83/60; PULSE 96; RESP 16; O2SAT 93
[2017-05-08 23:14] VITALS: BP 91/55
--- NOTE | 2017-05-09 00:49 | NUR ---
O2 Saturation / Hypotension / Pain Still on 1L O2 that is used continuously at home. O2 sat's range from 91% to 97% overnight. BP ranged from 91/55 @00:14 to 109/62 at start of shift. Pain management more effective and since able to control bowels required no full bed changes so far tonight and improved amounts of sleep.
[2017-05-09 06:22] LABS: BASOPHILS % (AUTO) 0.7 % (0-3); EOSINOPHILS % (AUTO) 35.3 % (0-5); MONOCYTES % (AUTO) 10.1 % (4-12); Mean Corpuscular Hemoglobin 29.6 pg (27.0-35.0); Mean Corpuscular Volume 95.1 fL (81-100); NEUTROPHILS % (AUTO) 38.9 % (40-74); Platelet Count 347 bil/L (150-400)
[2017-05-09 07:06] VITALS: BP 94/63; PULSE 86; RESP 16; O2SAT 94
[2017-05-09] MEDS: Potassium Chloride 20 mEq SR Tablet PO SCH (07:46)
[2017-05-09] MEDS: oxyCODONE ER 10 mg ER12 Tablet PO SCH ×2 (07:46→19:36)
[2017-05-09] MEDS: Tiotropium 18mcg/Cap 5 Capsule Inhaler Kit INHALATION SCH (07:48)
[2017-05-09] MEDS: Fluticasone-Salmeterol 500-50 Inhaler INHALATION SCH ×2 (07:48→19:36)
[2017-05-09] MEDS: HYDROmorphone 1 mg/mL Inj IVPUSH PRN ×2 (07:52→16:10)
[2017-05-09 09:06] VITALS: BP 92/55; PULSE 99; RESP 18; O2SAT 95
--- NOTE | 2017-05-09 10:37 | PCM.PNSURG ---
Subjective Visit Information: Reason for Visit Sepsis Surgery/Surgery Date Post-Op Day # Date of Admission: Apr 29, 2017 at 23:45 Hospital Day # Subjective: CT reviewed. There is no sign of fistula between his wound and rectum, as suspected clinically. The wound bed was carefully inspected and has a bed of pink granulation tissue. Stools have thickened and are not contaminating the wound as much as they were late last week when I was originally consulted. Objective Vital Sign- Last 8 Hours Date Time Temp Pulse Resp B/P Pulse Ox O2 Delivery O2 Flow Rate FiO2 05/09/17 09:06 36.7 99 18 92/55 95 Nasal Cannula 1.00 05/09/17 07:45 Supplement Oxygen 05/09/17 07:06 36.5 86 16 94/63 94 Nasal Cannula 1.00 Intake and Output- Last 8 Hour 05/09/17 Cumulative From/Thru 07:00 04/29/17 17:01 - 05/08/17 20:30 Intake Total 46848 ml Output Total 57677 ml Balance -2204 ml Intake Oral 54159 ml IV Total 3738 ml Output Urine Total 48181 ml Stool Total 350 ml # Bowel Movements 39 Abdomen: Other Extremities: Other (L buttock wound with healing bed of granulation tissue. Measurements per note by Lenin Kenney.) Result Diagram: 05/09/17 0550 05/09/17 0550 Assessment & Plan Impression 71yom with left buttock decubitus wound. I was originally consulted for concern of fistula between rectum and wound, however, CT does not show this and on examination there is no connection. The wound has improved over the past 6 days. No need for debridement. Problems: Plan Continue local wound care. Plastic surgery consult--Lenin Kenney discussed with Jay Renae today who recommends MRI if the pt fits. F/U in wound care center. General Surgery to sign off. VTE Prophylaxis: SCDs Resuscitation Status: CPR: Attempt Resuscitation Sunita Branham MD May 09, 2017 10:37
[2017-05-09 13:19] VITALS: BP 102/63; PULSE 81; RESP 16; O2SAT 94
--- NOTE | 2017-05-09 15:01 | NUR ---
L hip PAIN pt c/o pain in L hip, medicated with scheduled and PRN meds continuously. Screaming out noted with ambulation. Pt refuses warm pad/cold compress. Will continue to monitor.
--- NOTE | 2017-05-09 16:08 | PCM.PNMED ---
Subjective Date of Service May 09, 2017 Subjective Denies any new issues/complaints Exam Vital Signs Vital Sign - Last Date Time Temp Pulse Resp B/P Pulse Ox O2 Delivery O2 Flow Rate FiO2 05/09/17 13:19 36.6 81 16 102/63 94 Nasal Cannula 1.00 Intake and Output 05/08/17 05/08/17 05/09/17 Cumulative From/Thru 15:00 23:00 07:00 04/29/17 17:01 - 05/08/17 20:30 Intake Total 2450 ml 91825 ml Output Total 1100 ml 50196 ml Balance 1350 ml -2204 ml Intake Oral 2200 ml 81789 ml IV Total 250 ml 3738 ml Output Urine Total 750 ml 02440 ml Stool Total 350 ml 350 ml # Bowel Movements 8 39 Exam General: Alert, Cooperative, No Acute Distress Head: Normal Eyes: Scleral Anicteric Nose: Mucous Membr Moist/[place] Mouth: Mucous Membr Moist/[place] Neck: Supple Chest & Lungs: Chest Wall Normal, Clear to auscultation bilat Cardiovascular: Regular Rate/Rhythm Abdomen: Non-tender, Non-distended, Normoactive bowel tones, Soft Neurological: Grossly Neurologically Intact, Normal Speech Extremity: 2+ pitting edema in LE bilat Skin: Dry with superficial desquamating-type rash over the upper extremities and torso primarily, but also extending down onto the legs. IVs and Medications Medications Reviewed: Medications were reviewed in detail Lab and Diagnostics Result Diagram: 05/09/17 0550 05/09/17 0550 X-Rays, CTs and MRIs X-RAY CHEST ONE VIEW, PORTABLE IMPRESSION: 1. Mild pulmonary edema redemonstrated without acute consolidation. Dictated by: German Zuniga M.D. on 04/29/2017 at 22:06 X-RAY PELVIS W/LAT HIP (LT)ns. IMPRESSION: 1. 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 Associated avascular necrosis of the femoral head cannot be excluded. Dictated by: German Zuniga M.D. on 04/29/2017 at 22:08 Cardiac Echo Impressions Date of Service: 05/02/17 0806 Echocardiogram Report Interpretation Summary The study quality was technically limited. The left ventricular ejection fraction is grossly normal. The right ventricle is borderline dilated. The right ventricular systolic function is normal. There is no Doppler evidence for an interatrial shunt. There is no significant valvular heart disease. Electronically signed by: Inocencio Olivarez on Reading Physician:05/02/2017 12:24 PM Assessment & Plan 71-year-old male with past medical history of CHF, pulmonary hypertension, lower extremity edema, C. difficile and MRSA, hypertension and diabetes who presents to ED from SNF via EMS secondary to upward trend of leukocytosis. # Sepsis. Acute. Present on admission. Seemed to have had resolved but with fever, tachycardia, hypotension, and worsening leukocytosis again on 05/03/17. Seems to be improving again - Hold IV fluid - Further treatment as noted below # Acute eosinophils present on admission. Ongoing - Associated with a desquamated rash - ? drug reaction - Stopping PO Vanco and Allopurinol on 05/06 per ID recs - Discussed with hematology on 05/09. Suspect drug reaction. - Continue to followup # Chronic sacral decubitus ulcer. Present on admission. - Appreciate ID consult. Will followup with recs - Active systemic infection seemed unlikely as of 05/02, per ID stopped - Stopped IV Meropenem on 05/02/17 per ID - Fistula ruled out with barium enema - Appreciate surgery consult. Will followup with recs - Plastic surgery consult--Lenin Kenney discussed with Ed Renae today who recommends MRI if the pt fits. - F/U in wound care center. # C. difficile diarrhea. Possible acute on chronic. Present on admission. Improving - Oral Vancomycin stopped on 05/06 per ID rec due to concern for ongoing and worsening eosinophilia # Hip pain. Chronic. Present on admission - Imaging shows possible avascular necrosis - Continue pain management - Continue with IV Dilaudid as needed # Anemia. Chronic. Present on admission. Ongoing - h/h stable - No sign of active bleeding - Further workup and followup as outpatient # Diastolic congestive heart failure. Chronic. Present on admission. acute exacerbation with worsening LE edema - Last echo from 2012 shows EF 50-55% (reduced from prior study), right ventricular enlargement - Troponin mildly elevated - Repeat Echo shows intact EF - Diuretics (Torsemide and Spironolactone) have been on hold since 05/03 due to hypotension and concern for sepsis - Will resume diuretics cautiously - Additional IV Lasix today # Hypertension. Chronic. Not present on admission. - Currently hypotensive to normotensive - Hold BP meds and cautious diuresis # COPD. Present on admission. Stable - DuoNeb's when necessary # Reported Diabetes. Present on admission. - Blood sugars stable without intervention - Stop Insulin sliding scale # Morbid obesity. Chronic. Present on admission. Ongoing - BMI 44.4 # Gout. Present on admission. Chronic. Stable - Hold Allopurinol since 05/06 given concern for drug reaction causing eosinophilia # GERD present on admission. Stable - Continue home Famotidine # HLD. Chronic. Present on admission. Stable - Continue home Atorvastatin Dispo: pending above GI Prophylaxis: H2 stephanie VTE Prophylaxis: SCDs VTE Mechanical Devices: Venous Foot Pump Resuscitation Status: CPR: Attempt Resuscitation Julio Swenson May 09, 2017 16:08
[2017-05-09 16:43] VITALS: BP 95/59; PULSE 74; RESP 17; O2SAT 94
--- NOTE | 2017-05-09 17:12 | NUR ---
MRI-off unit Pt off unit for MRI of L hip at 1710. P/u by transporter, on O2. Medicated for pain prior to leaving. Addendum: 05/09/17 at 1813 by DAVID KNIGHT RN Pt returned to unit at 1810. Test not performed, notified.
--- NOTE | 2017-05-09 17:18 | NUR ---
Wound note Patient seen at bedside with Dr Branham and Dr Davis this am, wound remains essentially unchanged with dimensions of 6 cm L x 6 cm W x 9 cm D, tissue is granular, drainage is serous and minimal in nature, no erythema or odor to wound, cleaned with gauze and saline then repacked loosely with gauze. Apparently loose stool and incontinence is improving so it is a better environment for wound healing. Dr Branham ordering nutritional labs and Dr Obrien ordering MRI of right hip to gather data for plastic surgery to consider flap closure of this wound in a month or two. For now nursing to continue dressing changes with gauze packing daily. Follow up at the wound center with Dr Scott in 1 month.
--- NOTE | 2017-05-09 17:46 | PROG NOTE ---
[address] [address] PROGRESS NOTE PATIENT: DEMOND HINKLE : 1945 MR#: [id number] ADMIT: 04/29/2017 JOB ID: [id number] DATE: 05/09/2017 INFECTIOUS DISEASE FOLLOWUP NOTE: REASON FOR FOLLOWUP: C. difficile colitis as well as profound eosinophilia with desquamating skin reaction. INTERVAL HISTORY: The patient reports that his skin rash is rapidly improving. He says his abnormal skin is resolving and that he has very little in the way of pruritus. No fevers, chills, or sweats. No significant shortness of breath. No nausea or vomiting. Surgery has signed off as the imaging showed no connection between his bowel and his decubitus ulcer. PHYSICAL EXAMINATION: Reveals a comfortable gentleman in no acute distress. He is afebrile, 37 degrees, pulse 74, respiratory rate 17, blood pressure 95/59, saturating well on 1 L. He is in no distress at all. He is quite cheerful. Oral cavity is negative. Lungs relatively clear. Abdomen benign. His rash is certainly not worsening in any way. There is a superficial desquamation going on over much of his torso and upper extremities but it is no worse, and perhaps somewhat improved over yesterday. LABORATORIES: Include white count still 13,000 with an impressive 35% eosinophils. Sed rate is in the mid 30s. Creatinine 1.22. CRP is 4.5, down from 10.7 10 days ago. Urinalysis is negative. Micro: No new cultures of interest. Recall that he had a positive C. diff some nine days ago. IMAGING: Includes a pelvic CT with contrast which failed to show any connection between bowel and wound. A small perianal tract extending towards anorectal region was noted, but there was no evidence for a rectoanal cutaneous fistula. General surgery is aware of the findings of the CT scan and did not see any reason for concern. IMPRESSION: This patient has a decubitus ulcer which we have seen on previous visits and which does not appear to be infected. Imaging suggests there is no connection between the bowel and this decubitus ulcer, which is good. He also has C. diff and out of concern that his vancomycin might be producing some of his eosinophilia with skin reaction he was switched to fidaxomicin and is about prison through a 10-day course. His stools are now thickening and his diarrhea seems to be improving. His eosinophilia with desquamation is the biggest single outstanding issue that I see. This is not being driven by any antibiotics now as we switched to fidaxomicin about four days ago and he has not seen that antibiotic previously. It is possible this was due to some IV vancomycin he received which was followed by some oral vancomycin. It is also possible this was due to allopurinol, which was recently stopped, but in any event it does not appear to be infectious. He has never been in any place where Strongyloides is endemic. RECOMMENDATIONS: 1. Finish up fidaxomicin, which goes through the morning of May 16, one tablet p.o. b.i.d. 2. No additional antibiotics are indicated. 3. To facilitate the workup of the hypereosinophilia we have ordered an IgE as well as a peripheral blood smear and for completeness's sake an HIV test and a B12. 4. An a.m. cortisol level has also been ordered as this can occasionally be associated with hypereosinophilia. 5. Will follow up on these lab studies tomorrow. Thank you very much.
[2017-05-09 21:04] VITALS: BP 91/56; PULSE 87; RESP 18; O2SAT 92
--- NOTE | 2017-05-09 23:50 | NUR ---
PATIENT RELUCTANT TO TURN/CHANGE POSITION. "I AM FINE RIGHT HERE WHERE I AM, PLEASE DON'T TRY TO BOTHER ME WHEN I'M ABOUT TO SLEEP." EDUCATED ON IMPORTANCE OF CHANGING POSITION THRU THE NOC. STATES HE UNDERSTANDS AND CONTINUES TO DECLINE TURNING/ASSISTANCE RIGHT NOW. Addendum: 05/09/17 at 2353 by MILO MORENO RN Amended: Links added. Addendum: 05/10/17 at 0252 by MILO MORENO RN Medicated thru the NOC w/ PRN apap, po dilauded x 1, oxycodone 10mg x 1 for c/o BTP to bilat hips/back. Continues to decline offer to turn or change position. Denies need to void. Strauss patent, draining clear arianna urine to gravity. HOB up for comfort, o2 1lpm via NC. Call light w/in reach. CTM for changes.
--- NOTE | 2017-05-10 02:32 | NUR ---
Pt. is refusing to follow recommended care for his current skin breakdown (currently Q2 turns) despite being educated about the risk of his skin worsening. Pt. does not wish to "be bothered while trying to sleep." RN aware. Will continue to offer Q2.
[2017-05-10 04:43] VITALS: BP 91/56; PULSE 93; RESP 18; O2SAT 88
[2017-05-10] MEDS: HYDROmorphone 1 mg/mL Inj IVPUSH PRN ×3 (07:01→21:01)
[2017-05-10] MEDS: Potassium Chloride 20 mEq SR Tablet PO SCH (08:00)
[2017-05-10 08:17] LABS: Vitamin B12 1506 pg/mL (211-946)
[2017-05-10 08:19] LABS: BASOPHILS % (AUTO) 0.6 % (0-3); EOSINOPHILS % (AUTO) 37.7 % (0-5); Mean Corpuscular Hemoglobin 30.2 pg (27.0-35.0); Mean Corpuscular Volume 96.4 fL (81-100); NEUTROPHILS % (AUTO) 36.7 % (40-74); Platelet Count 341 bil/L (150-400)
[2017-05-10 09:05] VITALS: BP 94/63; PULSE 81; RESP 16; O2SAT 92
[2017-05-10] MEDS: oxyCODONE ER 10 mg ER12 Tablet PO SCH ×2 (10:51→21:05)
[2017-05-10] MEDS: Fluticasone-Salmeterol 500-50 Inhaler INHALATION SCH ×2 (11:08→21:01)
[2017-05-10] MEDS: Tiotropium 18mcg/Cap 5 Capsule Inhaler Kit INHALATION SCH (11:08)
[2017-05-10 11:30] VITALS: RESP 18; O2SAT 96
[2017-05-10 12:51] VITALS: BP 100/66; PULSE 93; RESP 18; O2SAT 93
--- NOTE | 2017-05-10 15:17 | NUR ---
NUTRITION FOLLOW-UP: ASSESS: 71 YO male admitted for sepsis, with c-diff and sacral decub ulcer, evaluated for potential fistula, no fistula noted, MD indicates improvement in decub ulcer with improvement in diarrhea as well. PMHx: CHF with chronic cor pulmonale, pulm HTN, lower extremity edema, C-diff, MRSA, HTN, diabetes, COPD, diverticulosis, CAD, morbid obesity, CKD stage V, Gout GERD. LABS: Reviewed. CRP 4.5 MEDS: Reviewed. GI: C-Diff diarrhea, BM x 6 (05/09) SKIN: Sacral decub stage III per wound care note---notes 05/09 report wound unchanged CURRENT WT: 150.8kg. Adj BW: 90.67 kg. (Wt in 2013 was 176.9 kg, unclear if wt loss was intentional or not at this time) DIET: Heart Healthy Diabetic. PO 100% EST. NEEDS (WOUND, BMI): 0589-0401 kcals (25-35 kcals/kg Adj BW), 90-135 g protein (1.0-1.5 g/kg Adj BW) NUTRITION DIAGNOSIS: 1.) Increased nutrient needs related to increased demand for nutrients as evidenced by chronic sacral decub, stage III--PERSISTS. NUTRITION INTERVENTION: 1.) Supplements added: Santana with diet sprite BID and Glucerna. MONITOR / EVAL: PO intake, labs, nutritional status. Follow per moderate nutritional risk guidelines.
--- NOTE | 2017-05-10 16:44 | PROG NOTE ---
[address] [address] PROGRESS NOTE PATIENT: DEMOND HINKLE : 1945 MR#: [id number] ADMIT: 04/29/2017 JOB ID: [id number] DATE: 05/10/2017 REASON FOR FOLLOWUP: Eosinophilic dermatitis. Overnight, the patient reports no fevers, chills, or sweats. No new pulmonary or GI symptoms. His skin rash is gradually fading. Temperatures reveal a man who is consistently afebrile. Temp 36.8, pulse 93, respiratory rate 18, blood pressure 100/66. He is saturating well on 1 L. He is in no acute distress. His skin rash has gradually diminished. There is no more erythema or fresh areas of involvement but is still some desquamation going down to the hands and the feet. In general he appears completely nontoxic. LABORATORIES: Include white count still 14,000, still with 35% or more eosinophils. Chemistry not repeated today, though a B12 level was actually high at 1500. Serum IgE we ordered yesterday. Came in remarkably low at 3. HIV negative. A peripheral smear is pending on the smear evaluation, pending on the CBC. C. diff was positive earlier in the hospital stay and the patient is currently in the midst of a 10-day course of fidaxomicin. IMAGING: The pelvic CT showed no communication between the bowel and his decubitus wounds. IMPRESSION: This patient continues to have a pronounced eosinophilia with skin reaction but no evidence of drug reaction with eosinophilia and systemic symptoms (DRESS) or Rosario-Moreno syndrome. The etiology of his eosinophilia is unknown but is almost certainly due to a medication. Whether this may be allopurinol, vancomycin or Zosyn remains unclear to me. These antibiotics have now all been stopped and we await improvement. I see no indication to offer steroids at this time as the patient is basically nontoxic. RECOMMENDATIONS: 1. Will continue fidaxomicin through the morning of May 16 to finish the total course of therapy for C. difficile. 2. No additional antibiotics. 3. We await the cortisol level and the peripheral smear which are both pending but will go ahead and sign off at this time and check those from a distance. 4. Note that ID will be signing off as there are no active ID issues. Should his eosinophilia continue, I would consider consulting Heme/Onc or Allergy/Immunology.
--- NOTE | 2017-05-10 17:13 | PCM.PNMED ---
Subjective Date of Service May 10, 2017 Subjective Denies any new issues/complaints Exam Vital Signs Vital Sign - Last Date Time Temp Pulse Resp B/P Pulse Ox O2 Delivery O2 Flow Rate FiO2 05/10/17 12:51 36.8 93 18 100/66 93 Nasal Cannula 1.00 Intake and Output 05/09/17 05/09/17 05/10/17 Cumulative From/Thru 15:00 23:00 07:00 04/29/17 17:01 - 05/10/17 04:43 Intake Total 656 ml 900 ml 1200 ml 86678 ml Output Total 750 ml 600 ml 850 ml 61079 ml Balance -94 ml 300 ml 350 ml -1648 ml Intake Oral 475 ml 900 ml 1200 ml 42587 ml IV Total 181 ml 3919 ml Output Urine Total 750 ml 600 ml 850 ml 14143 ml Stool Total 350 ml # Bowel Movements 3 3 45 Exam General: Alert, Cooperative, No Acute Distress Head: Normal Eyes: Scleral Anicteric Nose: Mucous Membr Moist/[place] Mouth: Mucous Membr Moist/[place] Neck: Supple Chest & Lungs: Chest Wall Normal, Clear to auscultation bilat Cardiovascular: Regular Rate/Rhythm Abdomen: Non-tender, Non-distended, Normoactive bowel tones, Soft Neurological: Grossly Neurologically Intact, Normal Speech Extremity: 2+ pitting edema in LE bilat Skin: Dry with superficial desquamating-type rash over the upper extremities and torso primarily, but also extending down onto the legs. IVs and Medications Medications Reviewed: Medications were reviewed in detail Lab and Diagnostics Result Diagram: 05/10/17 0800 05/09/17 0550 X-Rays, CTs and MRIs X-RAY CHEST ONE VIEW, PORTABLE IMPRESSION: 1. Mild pulmonary edema redemonstrated without acute consolidation. Dictated by: German Zuniga M.D. on 04/29/2017 at 22:06 X-RAY PELVIS W/LAT HIP (LT)ns. IMPRESSION: 1. 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 Associated avascular necrosis of the femoral head cannot be excluded. Dictated by: German Zuniga M.D. on 04/29/2017 at 22:08 Cardiac Echo Impressions Date of Service: 05/02/17 0806 Echocardiogram Report Interpretation Summary The study quality was technically limited. The left ventricular ejection fraction is grossly normal. The right ventricle is borderline dilated. The right ventricular systolic function is normal. There is no Doppler evidence for an interatrial shunt. There is no significant valvular heart disease. Electronically signed by: Inocencio Olivarez on Reading Physician:05/02/2017 12:24 PM Assessment & Plan 71-year-old male with past medical history of CHF, pulmonary hypertension, lower extremity edema, C. difficile and MRSA, hypertension and diabetes who presents to ED from SNF via EMS secondary to upward trend of leukocytosis. # Sepsis. Acute. Present on admission. Seemed to have had resolved but with fever, tachycardia, hypotension, and worsening leukocytosis again on 05/03/17. Seems to be improving again - Hold IV fluid - Further treatment as noted below # Acute eosinophils present on admission. Ongoing - Associated with a desquamated rash - ? drug reaction - Stopped PO Vanco and Allopurinol on 05/06 per ID recs - Discussed with hematology on 05/09 and again on 05/10. Suspect drug reaction. - Continue to followup # Chronic sacral decubitus ulcer. Present on admission. - Appreciate ID consult. Will followup with recs - Active systemic infection seemed unlikely as of 05/02, per ID stopped - Stopped IV Meropenem on 05/02/17 per ID - Fistula ruled out with barium enema - Appreciate surgery consult. Will followup with recs - Plastic surgery consult--Lenin Kenney discussed with Ed Renae on 05/09 who recommends MRI but unfortunately patient doesn't fit in our MRI. Will need to followup as outpatient - F/U in wound care center. # C. difficile diarrhea. Possible acute on chronic. Present on admission. Improving - Oral Vancomycin stopped on 05/06 per ID rec due to concern for ongoing and worsening eosinophilia - Continue fidaxomicin through the morning of May 16 to finish the total course of therapy for C. difficile. # Hip pain. Chronic. Present on admission - Imaging shows possible avascular necrosis - Continue pain management - IV Dilaudid as needed and transition to PO in anticipation of discharge soon # Anemia. Chronic. Present on admission. Ongoing - h/h stable - No sign of active bleeding - Further workup and followup as outpatient # Diastolic congestive heart failure. Chronic. Present on admission. acute exacerbation with worsening LE edema - Last echo from 2012 shows EF 50-55% (reduced from prior study), right ventricular enlargement - Troponin mildly elevated - Repeat Echo shows intact EF - Diuretics (Torsemide and Spironolactone) were on hold since 05/03 due to hypotension and concern for sepsis - Resume diuretics cautiously # Hypertension. Chronic. Not present on admission. - Currently hypotensive to normotensive - Hold BP meds and cautious diuresis # COPD. Present on admission. Stable - DuoNeb's when necessary # Reported Diabetes. Present on admission. - Blood sugars stable without intervention - Stop Insulin sliding scale # Morbid obesity. Chronic. Present on admission. Ongoing - BMI 44.4 # Gout. Present on admission. Chronic. Stable - Hold Allopurinol since 05/06 given concern for drug reaction causing eosinophilia # GERD present on admission. Stable - Continue home Famotidine # HLD. Chronic. Present on admission. Stable - Continue home Atorvastatin Dispo: pending above GI Prophylaxis: H2 stephanie VTE Prophylaxis: SCDs VTE Mechanical Devices: Venous Foot Pump Resuscitation Status: CPR: Attempt Resuscitation Julio Swenson May 10, 2017 17:13
[2017-05-10 20:17] VITALS: PULSE 93; RESP 18; O2SAT 95
[2017-05-10 22:12] VITALS: BP 92/62; PULSE 101; RESP 16; O2SAT 92
[2017-05-11 04:07] LABS: BASOPHILS % (AUTO) 0.4 % (0-3); EOSINOPHILS % (AUTO) 31.5 % (0-5); MONOCYTES % (AUTO) 10.5 % (4-12); Mean Corpuscular Volume 95.9 fL (81-100); NEUTROPHILS % (AUTO) 40.2 % (40-74); Platelet Count 341 bil/L (150-400)
[2017-05-11 06:43] VITALS: BP 108/68; PULSE 89; RESP 17; O2SAT 95
[2017-05-11] MEDS: Fluticasone-Salmeterol 500-50 Inhaler INHALATION SCH (08:34)
[2017-05-11] MEDS: Tiotropium 18mcg/Cap 5 Capsule Inhaler Kit INHALATION SCH (08:35)
[2017-05-11] MEDS: Potassium Chloride 20 mEq SR Tablet PO SCH (08:36)
[2017-05-11] MEDS: oxyCODONE ER 10 mg ER12 Tablet PO SCH (08:37)
--- NOTE | 2017-05-11 09:00 | NUR ---
JONH signed. ABELARDO Enriquez
--- NOTE | 2017-05-11 09:15 | NUR ---
Social Work-readiness for discharge: Data:EMR reviewed. Pt is on day12 of hospitalization for sepsis per H&P. Pt is not medically stable anticipate 1-2 more days. Pt has been residing at [facility] and will return there when ready.ID has signed off and wound care still involved.. Paperwork has been placed in the chart. SW will continue to follow. Assessment:Pt who will return to [facility]. Plan:Pt to discharge back to [facility] when medically stable. Paperwork has been placed in the chart. SW will continue to follow. ABELARDO Enriquez
[2017-05-11] MEDS ORDERED: FIDA200T PO (11:26)
[2017-05-11] MEDS ORDERED: OXYC10TA69 PO (11:26)
[2017-05-11] MEDS ORDERED: HYDR4TAB PO (11:26)
[2017-05-11] MEDS ORDERED: HYDR1DIS3 IVPUSH (11:26)
[2017-05-11] MEDS ORDERED: MYCC TOPICAL (11:26)
[2017-05-11] MEDS ORDERED: OXYC5TAB72 PO (11:26)
--- NOTE | 2017-05-11 11:39 | PCM.DIMED ---
Discharge Instructions Date of Service May 11, 2017 Dates of Hospitalization Apr 29, 2017 at 23:45 Discharge Diagnosis Discharge Diagnosis # Acute Sepsis with source C. Diff and possible wound infection. Present on admission. Resolved. # Acute Eosinophilia, present on admission. Ongoing but improving - Associated with a desquamated rash - Suspect likely drug reaction # Chronic sacral decubitus ulcer. Present on admission. Ongoing # C. difficile diarrhea. Possible acute on chronic. Present on admission. Improving - Oral Vancomycin stopped on 05/06 per ID rec due to concern for ongoing and worsening eosinophilia - Continue fidaxomicin through the morning of May 16 to finish the total course of therapy for C. difficile. # Hip pain. Chronic. Present on admission - Imaging shows possible avascular necrosis # Anemia. Chronic. Present on admission. Stable # Diastolic congestive heart failure. Chronic. Present on admission. acute exacerbation with worsening lower extremity edema. Improving # Hypertension. Chronic. - Currently hypotensive to normotensive # COPD. Present on admission. Stable # Reported Diabetes on admission. Ruled out. - HgA1C 5.7 # Morbid obesity. Chronic. Present on admission. Ongoing - BMI 44.4 # Gout. Chronic. Stable - Stopped Allopurinol since 05/06 given concern for drug reaction causing eosinophilia # GERD present on admission. Stable # Chronic hyperlipidemia. Present on admission. Stable Diet Discharge Diet: Low fat, Low Sodium, Heart Healthy Activity Discharge Activity: Other (as tolerated and per physical therapy) Patient Instructions Patient Instructions MRI of right hip as outpatient to gather data for plastic surgery (Dr. Renae) to consider flap closure of this wound in a month or two. For now nursing to continue dressing changes with gauze packing daily. Follow up at the wound center in 2-4 weeks. Follow-up plan 1. Followup with primary care provider within one week to recheck CBC with differential and if Eosinophilia not improving consider further followup with hematology or tip tester as outpatient. Flow Cytometry was also ordered during hospital and the final result needs to be followed up by primary care provider. 2. Follow up at the wound center in 2-4 weeks. Follow-up Provider: Dieter Garibay MD Follow-up with PCP in: 1 week Provider: Richi Renae MD Follow-up in: 4 weeks Julio Swenson May 11, 2017 11:39
--- NOTE | 2017-05-11 12:04 | NUR ---
Social Work-discharge: Data:EMR Reviewed. Pt is on day 12 of hospitalization for sepsis per H&P. Pt is medically stable for discharge today. BRANDON spoke with admissions at [facility] who is agreeable for pt to return. BRANDON faxed orders and [facility] has confirmed they have received them. [facility] to arrange transport for 1400. Pt's w/c is in room and [facility] is aware of this. BRANDON updated pt at bedside and he is agreeable to plan. BRANDON called pt's SO Simran [phone] and [phone] and informed her of discharge time. Simran is agreeable and would like BRANDON to inform [facility] that she would like MD to discuss pt's POLST again with him at facility. BRANDON has updated [facility]. Pt to follow up at [facility] post discharge. RN,UC,pt/family, and [facility] all updated and agreeable to plan. Assessment:Pt who resides at [facility]. Plan:Pt to discharge back to [facility] today via w/c van at 1400. Pt's w.c is in his room. RN,UC,pt/family, and [facility] all updated and agreeable to plan. ABELARDO Enriquez
[2017-05-11] MEDS: HYDROmorphone 1 mg/mL Inj IVPUSH PRN (12:37)
[2017-05-11 12:49] VITALS: BP 102/67; PULSE 95; RESP 18; O2SAT 93
--- NOTE | 2017-05-11 15:06 | NUR ---
Discharge->[facility] Pt transported via [facility] van on personal wc at 1420. Medicated for pain prior to leaving. VSS. All personal belongings left with pt. Report called to receiving nurse Miranda at [phone].
--- NOTE | 2017-05-11 17:41 | PCM.DC.MED ---
Discharge Summary Date of Service May 11, 2017 Dates of Hospitalization Date of Hospital Admission Apr 29, 2017 at 23:45 Date of Discharge: May 11, 2017 Providers: Admitting Physician: Joaquin Moore MD Primary Care Physician: Dieter Garibay MD Attending Physician: Joaquin Moore MD Diagnosis at Time of Discharge Diagnosis at Time of Discharge # Acute Sepsis with source C. Diff and possible wound infection. Present on admission. Resolved. # Acute Eosinophilia, present on admission. Ongoing but improving - Associated with a desquamated rash - Suspect likely drug reaction # Chronic sacral decubitus ulcer. Present on admission. Ongoing # C. difficile diarrhea. Possible acute on chronic. Present on admission. Improving - Oral Vancomycin stopped on 05/06 per ID rec due to concern for ongoing and worsening eosinophilia - Continue fidaxomicin through the morning of May 16 to finish the total course of therapy for C. difficile. # Hip pain. Chronic. Present on admission - Imaging shows possible avascular necrosis # Anemia. Chronic. Present on admission. Stable # Diastolic congestive heart failure. Chronic. Present on admission. acute exacerbation with worsening lower extremity edema. Improving # Hypertension. Chronic. - Currently hypotensive to normotensive # COPD. Present on admission. Stable # Reported Diabetes on admission. Ruled out. - HgA1C 5.7 # Morbid obesity. Chronic. Present on admission. Ongoing - BMI 44.4 # Gout. Chronic. Stable - Stopped Allopurinol since 05/06 given concern for drug reaction causing eosinophilia # GERD present on admission. Stable # Chronic hyperlipidemia. Present on admission. Stable Consultations 1. ID 2. Surgery Procedures XRay, CTs & MRIs X-RAY CHEST ONE VIEW, PORTABLE IMPRESSION: 1. Mild pulmonary edema redemonstrated without acute consolidation. Dictated by: German Zuniga M.D. on 04/29/2017 at 22:06 X-RAY PELVIS W/LAT HIP (LT)ns. IMPRESSION: 1. 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 Associated avascular necrosis of the femoral head cannot be excluded. Dictated by: German Zuniga M.D. on 04/29/2017 at 22:08 Date of Service: 05/08/17 1330 PROCEDURE: CT PELVIS WITHOUT CONTRAST ([id number]) IMPRESSION: 1. Right perianal/gluteal decubitus ulcer with a small tract extending towards the anorectal region. None of the rectal contrast extends into this tract to suggest a definitive rectoanal-cutaneous fistula. 2. Multiple polygonal shaped densities within a fluid-filled structure in the right iliac fossa probably represents a portion of the cecum with contrast trickling into this region. However, a loculated fluid collection which communicates the bowel is difficult to completely excluded. If there is clinical concern for an intraperitoneal process/abscess, a CT of the abdomen and pelvis with oral and intravenous contrast is recommended. 3. Deformity and severe degenerative changes of the left hip probably is related to previous trauma. Fusion of the sacroiliac joints is noted. Note: Findings were discussed with Dr. Ribera at 1440 hours on 05/08/17. Dictated by: Jose Sigala M.D. on 05/08/2017 at 14:23 Approved by: Jose Sigala M.D. on 05/08/2017 at 14:44 Cardiac Echo Impression Date of Service: 05/02/17 0806 Echocardiogram Report Interpretation Summary The study quality was technically limited. The left ventricular ejection fraction is grossly normal. The right ventricle is borderline dilated. The right ventricular systolic function is normal. There is no Doppler evidence for an interatrial shunt. There is no significant valvular heart disease. Electronically signed by: Inocencio Olivarez on Reading Physician:05/02/2017 12:24 PM Brief History As noted in H&P by Dr. Ortiz: Mr. Mcbride is a 71-year-old male with past medical history of CHF, pulmonary hypertension, lower extremity edema, C. difficile and MRSA, hypertension and diabetes who presents to ED from SNF via EMS secondary to upward trend of leukocytosis. He reportedly gets weekly WBC checks and today's lab value was found to be abnormal. Patient has also had persistent C. difficile diarrhea and 5 days of worsening generalized body aches pains and lower extremity edema. He states he had a bone infection 2 weeks ago and has been admitted several times to different hospitals recently. He states lower back discomfort and pain which she attributes to a decubitus ulcer which she developed 03/14/2017 and is reportedly now infected with MRSA being treated with ABX. He denies any other complaints. Denies headache, visual changes, chest pain, cough, shortness of breath or abdominal pain. In the ED CXR showed mild pulmonary edema, and x-ray hip/pelvis showed possible left hip avascular necrosis. Lab values showed leukocytosis 18.3, mild anemia, hyponatremia, elevated troponin and C-reactive protein. Patient was given vancomycin, meropenem and clindamycin and started on IV fluids. Given Dilaudid for pain. Hospital Course # Sepsis. Acute. Present on admission. Seemed to have had resolved but with fever, tachycardia, hypotension, and worsening leukocytosis again on 05/03/17. Seems Resolved now - Treatment as noted below # Acute eosinophils present on admission. Ongoing but improving - Associated with a desquamated rash - Suspect likely drug reaction (unclear which medication but suspect possible alf use of Zosyn vs other Abx vs Allopurinol) - Stopped PO Vanco and Allopurinol on 05/06 per ID recs - Discussed with hematology on 05/09 and again on 05/10. Suspect drug reaction. - Continue to followup - Flow cytometry ordered and pending - Per hematology if not improving by next week then followup as outpatient # Chronic sacral decubitus ulcer. Present on admission. - Appreciate ID consult. Will followup with recs - Active systemic infection seemed unlikely as of 05/02, per ID stopped - Stopped IV Meropenem on 05/02/17 per ID - Fistula ruled out with barium enema - Appreciate surgery consult. Will followup with recs - Plastic surgery consult--Lenin Kenney discussed with Dr. Jay Renae on 05/09 who recommends MRI but unfortunately patient doesn't fit in our MRI. Will need to followup as outpatient - F/U in wound care center. # C. difficile diarrhea. Possible acute on chronic. Present on admission. Improving - Oral Vancomycin stopped on 05/06 per ID rec due to concern for ongoing and worsening eosinophilia - Continue fidaxomicin through the morning of May 16 to finish the total course of therapy for C. difficile. # Hip pain. Chronic. Present on admission - Imaging shows possible avascular necrosis - Continue pain management # Anemia. Chronic. Present on admission. Ongoing - h/h stable - No sign of active bleeding - Further workup and followup as outpatient # Diastolic congestive heart failure. Chronic. Present on admission. acute exacerbation with worsening LE edema - Last echo from 2012 shows EF 50-55% (reduced from prior study), right ventricular enlargement - Troponin mildly elevated - Repeat Echo shows intact EF - Resumed diuretics cautiously and patient's BP stable back on them # Hypertension. Chronic. Not present on admission. - Currently hypotensive to normotensive # COPD. Present on admission. Stable - DuoNeb's when necessary # Reported Diabetes. Present on admission. - Blood sugars stable without intervention - Stop Insulin sliding scale # Morbid obesity. Chronic. Present on admission. Ongoing - BMI 44.4 # Gout. Present on admission. Chronic. Stable - Hold Allopurinol since 05/06 given concern for drug reaction causing eosinophilia # GERD present on admission. Stable - Continue home Famotidine # HLD. Chronic. Present on admission. Stable - Continue home Atorvastatin Exam Vital Signs (Last) Date Time Temp Pulse Resp B/P Pulse Ox O2 Delivery O2 Flow Rate FiO2 05/11/17 12:49 36.6 95 18 102/67 93 Nasal Cannula 1.00 Exam General: Alert, Cooperative, No Acute Distress Head: Normal Eyes: Scleral Anicteric Nose: Mucous Membr Moist/[place] Mouth: Mucous Membr Moist/[place] Neck: Supple Chest & Lungs: Chest Wall Normal, Clear to auscultation bilat Cardiovascular: Regular Rate/Rhythm Abdomen: Non-tender, Non-distended, Normoactive bowel tones, Soft Neurological: Grossly Neurologically Intact, Normal Speech Extremity: 2+ pitting edema in LE bilat Skin: Dry with superficial desquamating-type rash over the upper extremities and torso primarily, but also extending down onto the legs. Test 04/29/17 18:41 04/29/17 20:21 04/30/17 03:30 05/01/17 07:24 Prothrombin Time 10.5sec (8.1-12.5) Prothromb Time International Ratio 0.98ratio Activated Partial Thromboplast Time 33.2sec (22.8-33.0) Urine Color Yellow (YELLOW) Urine Appearance Clear (CLEAR,HAZY) Urine pH 5.0 (5.0-8.0) Urine Specific [place] 1.010 (1.003-1.035) Urine Protein Tracemg/dL (NEG,TRACE) Urine Glucose (UA) Negativemg/dL (NEGATIVE) Urine Ketones Negativemg/dL (NEGATIVE) Urine Occult Blood Negative (NEGATIVE) Urine Nitrite Negative (NEGATIVE) Urine Bilirubin Negative (NEGATIVE) Urine Urobilinogen Normalmg/dL (NORMAL) Urine Leukocyte Esterase Trace (NEGATIVE) Urine RBC 0-2/hpf (0-2) Urine WBC 0-5/hpf (0-5) Urine Epithelial Cells Few/hpf (NONE-MOD) Urine Crystals None seen (NONE SEEN) Urine Bacteria Few/hpf (NONE-FEW) Urine Hyaline Casts None/lpf (NONE) Urine Granular Casts None seen (NONE SEEN) Urine Waxy Casts None seen (NONE SEEN) Urine Red Blood Cell Casts None seen (NONE SEEN) Urine White Blood Cell Casts None seen (NONE SEEN) Urine Mucus None seen (None Seen) Urine Trichomonas None seen (NONE SEEN) Urine Yeast None (NONE SEEN) Urinalysis Comment None Urine Culture Reflexed Indicated Hold Urine Received (Received) Hold Gaspar Top Tube Received (Received) Reticulocyte Count,Calculated 4.2% (0.6-2.6) Lactic Acid Level 1.0mmol/L (0.4-2.0) Iron Level 44ug/dL (35-150) Total Iron Binding Capacity 125ug/dL (250-450) Percent Iron Saturation 35%sat (15-50) Unsaturated Iron Binding 81.3ug/dL Ferritin 425ng/mL (30-400) Troponin T 0.065ug/L (0.0-0.011) Pro-B-Type Natriuretic Peptide 1949pg/mL (0-376) Test 05/03/17 06:17 05/04/17 08:15 05/07/17 05:50 05/08/17 05:50 Hemoglobin A1c 5.7% (4.8-5.6) Procalcitonin 0.46ng/mL (0.00-0.08) Total Bilirubin 0.3mg/dL (0.0-1.2) Direct Bilirubin < 0.2mg/dL (0.0-0.3) Aspartate Amino Transf (AST/SGOT) 19U/L (0-50) Alanine Aminotransferase (ALT/SGPT) 13U/L (0-44) Alkaline Phosphatase 86U/L (25-160) Total Protein 4.7g/dL (6.4-8.4) Albumin 2.6g/dL (3.4-5.0) Magnesium Level 1.9mg/dL (1.6-2.6) Test 05/09/17 05:50 05/09/17 19:05 05/10/17 08:00 05/11/17 03:25 Erythrocyte Sedimentation Rate 35mm/hr (0-30) Sodium Level 140mEq/L (134-144) Potassium Level 4.6mEq/L (3.5-5.2) Chloride Level 101mEq/L (97-108) Carbon Dioxide Level 30mmol/L (18-29) Blood Urea Nitrogen 27mg/dL (8-27) Creatinine 1.22mg/dL (0.76-1.27) Estimat Glomerular Filtration Rate 63mL/min (>59) Glucose Level 93mg/dL (60-99) Calcium Level 9.2mg/dL (8.5-10.1) C-Reactive Protein 4.5mg/dL (0.0-0.5) Vitamin B12 Level 1506pg/mL (211-946) Immunoglobulin E 3IU/mL (0-100) HIV (1&2) Ag and Ab, 4th Generation Non reactive (Non Reactive) Hematology Comments Cortisol 6.1ug/dL (.) White Blood Count 11.6th/mm3 (3.8-10.1) Red Blood Count 2.41mil/mm3 (4.40-5.80) Hemoglobin 7.0g/dL (13.8-17.2) Hematocrit 23.1% (41.0-50.0) Mean Corpuscular Volume 95.9fL (81-100) Mean Corpuscular Hemoglobin 29.0pg (27.0-35.0) Mean Corpuscular Hemoglobin Concent 30.3% (32.0-37.0) Red Cell Distribution Width 19.2% (12.3-15.4) Platelet Count 341bil/L (150-400) Neutrophils (%) (Auto) 40.2% (40-74) Lymphocytes (%) (Auto) 16.7% (14-46) Monocytes (%) (Auto) 10.5% (4-12) Eosinophils (%) (Auto) 31.5% (0-5) Basophils (%) (Auto) 0.4% (0-3) Discharge Medications Discharge Medications Albuterol HFA (Proair HFA) 8.5 Gm Hfa.aer.ad 2 PUFFS INHALATION Q4H (Reported) Ascorbic Acid (Vitamin C) 100 Mg Tablet 0 PO DAILY (Reported) Atorvastatin (Lipitor) 10 Mg Tab 40 MG PO DAILY (Reported) Famotidine (Famotidine) 20 Mg Tablet 20 MG PO DIALY (Reported) Fidaxomicin (Dificid) 200 Mg Tablet 200 MG PO BID Prescribed by: JANICE RIBERA MD Flaxseed Oil ([facility]-3 Flaxseed Oil) 1,000 Mg Capsule 1,000 MG PO DAILY (Reported ) Fondaparinux Sodium (Fondaparinux Sodium) 2.5 Mg/0.5 Ml Syringe 2.5 MG SQ DAILY (Reported) Furosemide (Furosemide) 20 Mg Tab 20 MG PO DAILY (Reported) Magnesium Oxide (Magnesium Oxide) 400 Mg Tablet 800 MG PO 2X WEEK (Reported) Metolazone (Metolazone) 2.5 Mg Tablet 2.5 MG PO mON-wED-fRI (Reported) Multivitamin (Multivitamins) 1 Each Capsule 1 EACH PO DAILY (Reported) Nystatin (Nystatin) 60 Applic/15 Gm Cream 1 APPLIC TOPICAL BID Prescribed by: JANICE RIBERA MD Oxycodone ER (Oxycontin) 10 Mg Tab.er.12h 10 MG PO Q8HR Prescribed by: JANICE RIBERA MD Potassium Chloride ER (Potassium Chloride ER) 20 Meq Tablet.er 40 MEQ PO DAILY ( Reported) TAKE WITH FOOD Rutin (Rutin) 500 Mg Tablet 500 MG PO DAILY (Reported) Spironolactone (Spironolactone) 50 Mg Tablet 50 MG PO DAILY (Reported) Torsemide (Torsemide) 20 Mg Tablet 20 MG PO BID (Reported) As needed Acetaminophen (Acetaminophen) 325 Mg Tablet 650 MG PO Q4H PRN PRN For Pain ( Reported) Colchicine (Colcrys) 0.6 Mg Tablet 0.6 MG PO DAILY PRN PRN GOUT (Reported) Hydromorphone (Hydromorphone) 4 Mg Tablet 4 MG PO Q4H PRN PRN Pain Prescribed by: JANICE RIBERA MD oxyCODONE (oxyCODONE) 5 Mg Tablet 5-10 MG PO Q4H PRN PRN For Moderate Pain Prescribed by: JANICE RIBERA MD Miscellaneous Medications ([Vitamin A and D]) (Reported) Followup Plan Disposition: [facility] Follow-up plan 1. Followup with primary care provider within one week to recheck CBC with differential and if Eosinophilia not improving consider further followup with hematology or drying tumbler operator as outpatient. Flow Cytometry was also ordered during hospital and the final result needs to be followed up by primary care provider. 2. Follow up at the wound center in 2-4 weeks. Discharge Diet: Low fat, Low Sodium, Heart Healthy Discharge Activity: Other (as tolerated and per physical therapy) Patient Instructions MRI of right hip as outpatient to gather data for plastic surgery (Dr. Renae) to consider flap closure of this wound in a month or two. For now nursing to continue dressing changes with gauze packing daily. Follow up at the wound center in 2-4 weeks. Follow-up Provider: Dieter Garibay MD Follow-up with PCP in: 1 week Provider: Richi Renae MD Follow-up in: 4 weeks Time spent 35 min copies to: Richi Renae MD; Dieter Garibay MD, Masoud May 11, 2017 17:41
[2017-05-17 20:11] LABS: PNH Viability 79% (.)
== END 2017-05-11 14:18 | DRG 871 ==
LOC: SED 16:42 → MPC 23:45
PROVIDERS: ADMIT Hospitalist; ATTEND Hospitalist
DX: A41.9 Sepsis, unspecified organism (principal); I50.33 Acute on chronic diastolic (congestive) heart failure; L89.153 Pressure ulcer of sacral region, stage 3; J96.90 Respiratory failure, unspecified, unspecified whether with hypoxia or hypercapnia; Z68.42 Body mass index [BMI] 45.0-49.9, adult; A04.7 Enterocolitis due to Clostridium difficile; F11.20 Opioid dependence, uncomplicated; E66.2 Morbid (severe) obesity with alveolar hypoventilation; M87.9 Osteonecrosis, unspecified; E66.01 Morbid (severe) obesity due to excess calories; L27.0 Generalized skin eruption due to drugs and medicaments taken internally; T50.905A Adverse effect of unspecified drugs, medicaments and biological substances, initial encounter; M1A.9XX0 Chronic gout, unspecified, without tophus (tophi); K21.9 Gastro-esophageal reflux disease without esophagitis; E78.5 Hyperlipidemia, unspecified; D64.9 Anemia, unspecified; I10 Essential (primary) hypertension; E11.9 Type 2 diabetes mellitus without complications; D72.1 Eosinophilia; G89.29 Other chronic pain; M25.559 Pain in unspecified hip

== ENCOUNTER 2017-07-22 18:44 | Observation (INO) | payer MEDICARE, MEDICAID ==
[~2017-07-22] VITALS: Ht 175.3 cm; Wt 125.4 kg
[~2017-07-22 18:44] MED LIST changes: +ACET325T51 PO; +ALBU8.5H2 INHALATION; +ASCO100T11 PO; +ATRV10T PO; +COLC0.6T52 PO; +FAMO20TA4 PO; +FIDA200T PO; +FLAX100038 PO; +FUR20 PO; +HYDR4TAB PO; +MAGN400T4 PO; +METO2.5T12 PO; +MULT1CAP33 PO; +MYCC TOPICAL; +OXYC10TA69 PO; +OXYC5TAB72 PO; +POTA-62 PO; +RUTI500T PO; +SPIR50TA2 PO; +TORS20TA3 PO; +[UNRECOGNIZED DRUG - CODE] SQ
[2017-07-22 18:59] VITALS: BP 117/75; PULSE 74; RESP 18; O2SAT 94
[2017-07-22 20:05] VITALS: PULSE 74; RESP 16; O2SAT 99
[2017-07-22 20:08] LABS: BASOPHILS % (AUTO) 0.6 % (0-3); EOSINOPHILS % (AUTO) 3.9 % (0-5); MONOCYTES % (AUTO) 8.4 % (4-12); Mean Corpuscular Hemoglobin 29.1 pg (27.0-35.0); Mean Corpuscular Volume 85.2 fL (81-100); NEUTROPHILS % (AUTO) 59.6 % (40-74); Platelet Count 324 bil/L (150-400)
[2017-07-22 20:33] LABS: Magnesium 1.9 mg/dL (1.6-2.6)
[2017-07-22] MEDS ORDERED: Ondansetron 2 mg/mL 2 mL Inj IVPUSH PRN ×2 (20:40→21:40)
[2017-07-22] MEDS ORDERED: Alum-Mag Hydrox-Simeth 30 mL Suspension PO PRN ×2 (20:40→21:40)
--- NOTE | 2017-07-22 20:50 | ED.REPORT ---
HPI-General Illness Date of Service Jul 22, 2017 ED Provider: Nir Dunn MD Patient is a 72 year old male with a history of COPD on 1L of oxygen at home, CHF, hypertension and diabetes who presents to the ED from [facility] after a low sodium of 118. He denies weakness, numbness, confusion, slurred speech, losing consciousness, chest pain, shortness of breath, abdominal pain, nausea, vomiting, fever, diarrhea or seizure. The patient has no complaints at this time. Nursing Notes Stated Complaint: LABS SHOW CRITICAL LOW SODIUM 118 Chief Complaint: General Complaint Nursing Notes Reviewed: Yes Allergies: Coded Allergies: No Known Drug Allergies (Verified Allergy, 11/13/11) Scheduled Albuterol HFA (Proair HFA) 8.5 Gm Hfa.aer.ad 2 PUFFS INHALATION Q4H Ascorbic Acid (Vitamin C) 100 Mg Tablet 0 PO DAILY Atorvastatin (Lipitor) 10 Mg Tab 40 MG PO DAILY Famotidine (Famotidine) 20 Mg Tablet 20 MG PO DIALY Fidaxomicin (Dificid) 200 Mg Tablet 200 MG PO BID Flaxseed Oil ([place]-3 Flaxseed Oil) 1,000 Mg Capsule 1,000 MG PO DAILY Fondaparinux Sodium (Fondaparinux Sodium) 2.5 Mg/0.5 Ml Syringe 2.5 MG SQ DAILY Furosemide (Furosemide) 20 Mg Tab 20 MG PO DAILY Magnesium Oxide (Magnesium Oxide) 400 Mg Tablet 800 MG PO 2X WEEK Metolazone (Metolazone) 2.5 Mg Tablet 2.5 MG PO mON-wED-fRI Multivitamin (Multivitamins) 1 Each Capsule 1 EACH PO DAILY Nystatin (Nystatin) 60 Applic/15 Gm Cream 1 APPLIC TOPICAL BID Oxycodone ER (Oxycontin) 10 Mg Tab.er.12h 10 MG PO Q8HR Potassium Chloride ER (Potassium Chloride ER) 20 Meq Tablet.er 40 MEQ PO DAILY TAKE WITH FOOD Rutin (Rutin) 500 Mg Tablet 500 MG PO DAILY Spironolactone (Spironolactone) 50 Mg Tablet 50 MG PO DAILY Torsemide (Torsemide) 20 Mg Tablet 20 MG PO BID Scheduled PRN Acetaminophen (Acetaminophen) 325 Mg Tablet 650 MG PO Q4H PRN PRN For Pain Colchicine (Colcrys) 0.6 Mg Tablet 0.6 MG PO DAILY PRN PRN GOUT Hydromorphone (Hydromorphone) 4 Mg Tablet 4 MG PO Q4H PRN PRN Pain oxyCODONE (oxyCODONE) 5 Mg Tablet 5-10 MG PO Q4H PRN PRN For Moderate Pain Miscellaneous Medications ([Vitamin A and D]) General Time Seen by MD: 19:45 Chief Complaint Other (low sodium lab result) Hx Obtained From: Patient Arrived By: Walk-in Severity: Current: No pain currently Similar Sx Previous: No Past Medical History Past Medical History CHF hypertension pulmonary hypertension COPD edema diverticulosis C.diff hip pain sciatica pain diabetes Past Surgical History RLE microphlebectomy polypectomy Smoking History Former Smoker Social History resides in [facility] Other Social History: Good social support Ambulatory Status Wheelchair Review of Systems Full Review of Systems Constitutional: Denies: Chills, Fever, Weakness - generalized Respiratory: Denies: Non-productive cough, Shortness of breath Cardiovascular: Denies: Chest pain GI: Denies: Abdominal pain, Diarrhea, Nausea, Vomiting Skin: Denies Itching, Denies Rash Neurologic: Denies: Change LOC, Confusion, Numbness, Seizure, Shaking, Slurred speech, Weakness Complete sys rev & neg: except as marked. Physical Exam Vital Signs Vital Signs Date Time Temp Pulse Resp B/P Pulse Ox O2 Delivery O2 Flow Rate FiO2 07/22/17 20:05 74 16 99 Nasal Cannula 1 07/22/17 18:59 36.4 74 18 117/75 94 Nasal Cannula 1 Initial VS: Reviewed General/Constitutional: Awake, Alert, No acute distress Head / Eyes: Atraumatic, Normocephalic, PERRL, EOMI ENT: Atraumatic, Airway patent, Mucous membranes moist Respiratory / Chest: Atraumatic, Breath sounds NL, Breath sounds = bilat, No respiratory distress on oxygen Cardiovascular: Heart rate NL, Regular rhythm, Heart sounds NL, No gallop, No murmurs, No rubs Abdomen: Atraumatic, Soft, Non-tender, No distention 1+ pitting edema 2/3 up to the knee Skin: Atraumatic, Color NL, No rash, Warm, Dry Neurologic: Oriented X3, Speech NL, No motor deficits, No sensory deficits, CN II - XII intact no lateralizing neurological findings no slurred speech Interpretation & Diagnostics Lab Results Interpretation Result Diagram: 8195507/[id number] Test 07/22/17 19:56 White Blood Count 7.9th/mm3 (3.8-10.1) Red Blood Count 4.06mil/mm3 (4.40-5.80) Hemoglobin 11.8g/dL (13.8-17.2) Hematocrit 34.6% (41.0-50.0) Mean Corpuscular Volume 85.2fL (81-100) Mean Corpuscular Hemoglobin 29.1pg (27.0-35.0) Mean Corpuscular Hemoglobin Concent 34.1% (32.0-37.0) Red Cell Distribution Width 14.3% (12.3-15.4) Platelet Count 324bil/L (150-400) Neutrophils (%) (Auto) 59.6% (40-74) Lymphocytes (%) (Auto) 26.5% (14-46) Monocytes (%) (Auto) 8.4% (4-12) Eosinophils (%) (Auto) 3.9% (0-5) Basophils (%) (Auto) 0.6% (0-3) Sodium Level 126mEq/L (134-144) Potassium Level 3.3mEq/L (3.5-5.2) Chloride Level 83mEq/L (97-108) Carbon Dioxide Level 28mmol/L (18-29) Blood Urea Nitrogen 33mg/dL (8-27) Creatinine 1.04mg/dL (0.76-1.27) Estimat Glomerular Filtration Rate 75mL/min (>59) Glucose Level 113mg/dL (60-99) Calcium Level 10.0mg/dL (8.5-10.1) Magnesium Level 1.9mg/dL (1.6-2.6) Total Bilirubin 0.2mg/dL (0.0-1.2) Aspartate Amino Transf (AST/SGOT) 24U/L (0-50) Alanine Aminotransferase (ALT/SGPT) 18U/L (0-44) Alkaline Phosphatase 79U/L (25-160) Total Protein 6.9g/dL (6.4-8.4) Albumin 3.4g/dL (3.4-5.0) Hold Gaspar Top Tube Received (Received) ECG Interpretation ECG Interpretation: borderline prolonged FL interval no acute T wave abnormalities no ST segement elevation compared to prior EKG from 04/29/17, no longer tachycardic Normal ECG Interpretation: Normal rate (71), Normal sinus rhythm X-Ray Chest Interpretation Chest Xray Interpretation: IMPRESSION: No acute cardiopulmonary findings. Dictated by: Saloni Leggett M.D. on 07/22/2017 at 21:40 Approved by: Saloni Leggett M.D. on 07/22/2017 at 21:40 View: Portable, 1 view Interpretation / Wet Read by: Interpret - Radiologist Re-Eval/Medical Decision Med Decision/Clinical Course Patient is a 72 year old male with a history of COPD on 1L of oxygen at home, CHF, hypertension and diabetes who presents to the ED from [facility] after a low sodium of 118. He denies weakness, numbness, confusion, slurred speech, losing consciousness, chest pain, shortness of breath, abdominal pain, nausea, vomiting, fever, diarrhea or seizure. The patient has no complaints at this time. The patient is noted to be on torsemide and spironolactone. Here in the emergency department the patient is afebrile with stable vital signs and examination as above. EKG: sinus rhythm, 71bpm borderline prolonged FL interval no acute T wave abnormalities no ST segment elevation compared to prior EKG from 04/29/17, no longer tachycardic Labs: CBC unremarkable Hematocrit 34.6 Chemistry notable for sodium of 126, decreased from previous 05/08/17 of 140 Potassium of 3.3 BUN 33 Creatinine of 1.04 Chest X-ray IMPRESSION: No acute cardiopulmonary findings. Patient currently presents with new onset hyponatremia though he is asymptomatic. He is not profoundly hyponatremic though he has precipitously dropped his sodium from a previous baseline of 140 only 2 months ago. He appears to be euvolemic or slightly hypervolemic with moist mucous membranes. Examination has a known history of congestive heart failure and admits that he has been drinking "more fluid than he is supposed to" recently. I suspect that this may be the cause of his hyponatremia in combination with underlying fluid retention. Patient was discussed with Dr. Maciel who accepts the patient for further management. At this time I am withholding PO fluids with plan for reassessment of his volume status and sodium levels. Patient was discussed with Dr. Hurd at the request of Dr. Maciel. Dr. Hurd does not feel that he needs to be involved in the patient's care unless further questions regarding management arise. Patient was transferred in stable condition. Time of Eval: 21:15 Re-Evaluation/Progress Note: Discussed results and plan for admit. Patient understands and agrees to plan. All questions were addressed. Consultation #1: Referral / Consult Name: Joaquin Moore MD Consulted With: Hospitalist Call Returned at: 21:01 Advertising Internship: Agrees with eval, Agrees with plan, Accepts admit Note: Consult with Dr. Martinez, who accepts the patient but would like nephrology to consult Consultation #2: Referral / Consult Name: Zane Hurd DO Consulted With: Nephrology Call Returned at: 21:16 Advertising Internship: Agrees with eval, Agrees with plan Counseled Regarding: Diagnosis, Lab results, Need for admission Discharge & Departure Primary Impression: Hyponatremia Additional Impressions: History of congestive heart failure Hypokalemia History of COPD Disposition: ADMITTED TO HOSPITAL Discharge Condition All VS Reviewed: Yes Condition: Stable Referrals: Dieter Garibay MD (PCP) Melvin Attestation Portions of this note were transcribed by Rosetta Kirby. I, Dr. Dunn personally performed the history, physical exam and medical decision-making; I reviewed and confirmed the accuracy of the information in the transcribed note. Signed by: Melvin Wellington, 07/22/17 copies to: Dieter Garibay MD, Beck O MD Jul 22, 2017 20:50 Kriss Kirby Jul 22, 2017 21:09
[2017-07-22] MEDS ORDERED: Polyethylene Glycol (PEG) 17 Gm Powder PO PRN (21:40)
--- NOTE | 2017-07-22 21:42 | DRSVH ---
PROCEDURE: X-RAY CHEST, TWO VIEWS ([id number]) INDICATIONS: chf TECHNIQUE: 2 views of the chest were acquired. COMPARISON: None. FINDINGS: Surgical changes and devices: None. Lungs and pleura: No pleural effusions or pneumothorax. Lungs are clear. Mediastinum: Mediastinal contours are normal. Heart size is normal. Bones and chest wall: No suspicious bony abnormalities. Soft tissues appear unremarkable. IMPRESSION: No acute cardiopulmonary findings. Dictated by: Saloni Leggett M.D. on 07/22/2017 at 21:40 Approved by: Saloni Leggett M.D. on 07/22/2017 at 21:40
--- NOTE | 2017-07-22 21:55 | PCM.HPMED ---
Subjective Date of Service Jul 22, 2017 Primary Provider: Admitting Physician: Primary Care Physician: Dieter Garibay MD Attending Physician: Admit Status: From the Emergency Department, Remote Telemetry Chief Complaint: asymptomatic hyponatremia History of Present Illness: Mr. Mcbride is a 72 year old gentleman with history of chronic hypoxemic respiratory failure secondary to advancing COPD, HFrEF, pulmonary hypertension, HTN, chronic right hip pain secondary to avascular necrosis, C. difficile infection, and MRSA, that presented to [facility] via EMS from [facility] for abnormal laboratory result of Na 118 obtained at [facility]. Patient reports as asymptomatic, without dizziness, headache, seizure activity, acute vision changes, nausea, vomiting, or LOC. He was admitted for observation and evaluation of euvolemic hyponatremia. - Hospital day one Mr. Mcbride states that he understands why he is here, but reports no associated symptoms: denies any fever, chills, nausea, vomiting, dysuria, hematuria, SOB above baseline, cough, diarrhea, constipation, lightheadedness, dizziness, seizure like activity, LOC, weakness above baseline, CP, palpitations , slurred speech, confusion. Currently states his only compliant is irritation with the need for admission. Notably irritated at time of admission throughout interview. Understands that his sodium level is low. Admits to increasing his po hydration, states compliance with medication. Admits to current right sided hip pain, and need for rest. In the ED, T36.4, P74, R18, BP 117/75, 94% 1L NC; Initial lab at [facility] revealed Na 126, K 3.3, Cr 1.04, glc 113, LFTs within range, Hb 11.8, Hct 34.6. Patient denies any changes to medications since recent admission April 2017. EKG did not reveal any acute ST-T changes, or wave changes indicative of electrolyte abnormalities, QTc 448. ED kindly contacted nephrology, whom did not agree for consultation at this time. Plan for admission and monitoring of electrolytes with fluid restriction. Patient transported to medical floor in stable condition. Review of Systems: Complete review of systems obtained, pertinent positives and negatives as noted in history of present illness Allergies Coded Allergies: No Known Drug Allergies (Verified Allergy, Unknown, 07/23/17) Home Medications Obtained from ED documentation, patient denies any changes to medication since recent admission in April 2017 Albuterol HFA (Proair HFA) 8.5 Gm Hfa.aer.ad 2 PUFFS INHALATION Q4H Ascorbic Acid (Vitamin C) 100 Mg Tablet 0 PO DAILY Atorvastatin (Lipitor) 10 Mg Tab 40 MG PO DAILY Famotidine (Famotidine) 20 Mg Tablet 20 MG PO DIALY Fidaxomicin (Dificid) 200 Mg Tablet 200 MG PO BID Flaxseed Oil ([place]-3 Flaxseed Oil) 1,000 Mg Capsule 1,000 MG PO DAILY Fondaparinux Sodium (Fondaparinux Sodium) 2.5 Mg/0.5 Ml Syringe 2.5 MG SQ DAILY Furosemide (Furosemide) 20 Mg Tab 20 MG PO DAILY Magnesium Oxide (Magnesium Oxide) 400 Mg Tablet 800 MG PO 2X WEEK Metolazone (Metolazone) 2.5 Mg Tablet 2.5 MG PO mON-wED-sat Multivitamin (Multivitamins) 1 Each Capsule 1 EACH PO DAILY Nystatin (Nystatin) 60 Applic/15 Gm Cream 1 APPLIC TOPICAL BID Oxycodone ER (Oxycontin) 10 Mg Tab.er.12h 10 MG PO Q8HR Potassium Chloride ER (Potassium Chloride ER) 20 Meq Tablet.er 40 MEQ PO DAILY TAKE WITH FOOD Rutin (Rutin) 500 Mg Tablet 500 MG PO DAILY Spironolactone (Spironolactone) 50 Mg Tablet 50 MG PO DAILY Torsemide (Torsemide) 20 Mg Tablet 20 MG PO BID Scheduled PRN Acetaminophen (Acetaminophen) 325 Mg Tablet 650 MG PO Q4H PRN PRN For Pain Colchicine (Colcrys) 0.6 Mg Tablet 0.6 MG PO DAILY PRN PRN GOUT Hydromorphone (Hydromorphone) 4 Mg Tablet 4 MG PO Q4H PRN PRN Pain oxyCODONE (oxyCODONE) 5 Mg Tablet 5-10 MG PO Q4H PRN PRN For Moderate Pain PMH Morbid obesity. Obstructive sleep apnea. Hypertension. Cytopenias. Gout. Chronic renal insufficiency, stage IV Chronic bilateral lower extremity edema. Chronic left hip pain thought to be due to avascular necrosis. Hyperlipidemia. Organic heart disease: a. CHF. b. Pulmonary hypertension. History of MRSA infections. Sciatica History of C. difficile CAD Diverticulosis Chronic decubitus ulcerations Surgical History RLE microphlebectomy polypectomy Family History Per outpatient records: Father: MRI, glaucoma, macular degeneration Mother: Cataracts Sister: Hypertension Social History Hx Alcohol Use: No Hx Substance Use: No Hx Tobacco Use: Yes Smoking Status: Former Smoker Living Arrangement: Assisted Facility ([facility]) Exam Vital Signs Vital Sign - Last Date Time Temp Pulse Resp B/P Pulse Ox O2 Delivery O2 Flow Rate FiO2 07/22/17 20:05 74 16 99 Nasal Cannula 1 07/22/17 18:59 36.4 117/75 Exam General: Alert and oriented 3; agitated gentleman resting upright in wheelchair in no acute distress HEENT: Atraumatic, normocephalic, sclera anicteric, membranes moist; NC in place Neck: Full range of motion without pain; no JVD appreciated, no skin turgor Cardiac: Regular rate and rhythm at time of examination without any appreciable murmurs Respiratory: Equal and adequate airflow all cruz without any wheeze or rhonchi ; no use of accessory muscles Chest: Atraumatic without any reproducible pain with palpation Abdomen: Soft, nontender, nondistended Extremities: Mild BLLE edema noted dorsum to mid-calf with chronic venous stasis changes Skin: Warm and dry; some flaking noted BLLE Neuro: Cranial nerves II-XII grossly intact, speech without slur, facial expressions equal and symmetric Psych: Appropriate mood, affect, and responses to questions; good insight and judgment Lab and Diagnostics Result Diagram: 07/22/17195507/22/171955 Assessment & Plan Mr. Mcbride is a 72 year old gentleman with history of chronic hypoxemic respiratory failure secondary to advancing COPD, HFrEF, pulmonary hypertension, HTN, chronic right hip pain secondary to avascular necrosis, C. difficile infection, and MRSA, that presented to [facility] via EMS from [facility] for abnormal laboratory result of Na 118 obtained at [facility]. Patient reports as asymptomatic, without dizziness, headache, seizure activity, acute vision changes, nausea, vomiting, or LOC. He was admitted for observation and evaluation of euvolemic hyponatremia. - Hospital day one Hyponatremia, euvolemic, acute, present on admission, under evaluation - On admit: Na 126; reports from [facility] 118, previous admission April 2017 sodium 140 - Patient admits to increased water intake; no thiazides or antidepressants on record - Continue to trend - Initiate fluid restriction: 1L - DDx: Increased fluid intake, inadequate po intake solute, polydipsia; most likely increased water intake, as pt admits to increased hydration efforts - Uosm, UA to be obtained Hypokalemia, acute, present on admission, under evaluation - -Admit: K3.3; previous 04/2017 4.6 - We will monitor and replete as necessary - Home med record show 40 mEq daily Chronic pain of right hip secondary to avascular necrosis, presumed stable - Resume home medications when reconciliation complete and when appropriate - Hydromorphone 4 mg tabs every 4 hours as needed; oxycodone 5 mg every 4 hours as needed Morbid obesity with limited mobility, chronic, presumed stable - Physical therapy evaluation to promote mobility and for bedside exercise - Continue to encourage mobility as tolerated Normocytic normochromic anemia, chronic, presumed stable - Admit: Hb 11.8, Hct 34.6, MCV 85.2, MCH 29.1 - Currently stable; continue to monitor History of heart failure, systolic and diastolic, chronic, presumed stable - Echo April 2017: Technically limited study with grossly normal EMS and borderline dilated right ventricle with normal right ventricular systolic function - Resume home medications when reconciliation complete and when appropriate - Preliminary records show: Metolazone 2.5 mg every Saturday, Saturday, Saturday ; spironolactone 50 mg daily, torsemide 20 mg twice daily Chronic hypoxemic respiratory failure secondary to COPD, presumed stable - Continue home oxygen therapy - Duoneb + accuneb prn HTN, chronic, presumed stable - Normotensive at time of admissioni - Resume home medications when reconciliation complete and when appropriate, including medications as noted above History of decubitus ulcerations, chronic, presumed stable - Followed by wound care outpt - Wound care consult Gout, chronic, presumed stable - Resume home medications when reconciliation complete and when appropriate - Colchicine 0.6 mg as needed - Continue cautious use of diuretics History bilateral lower extremity edema, chronic, presumed stable - Resume home medications, including rutin 500 mg daily - No evidence found that this flavinoid can contribute to hyponatremia; studies extremely limited MED REC yet to be completed at time of admission; awaiting input and verification PRN fever, bowel, nausea, pain DVT: Hep q8; will change to therapeutic fondaparinux when verified Diet: Heart healthy fluid restriction 1 L GI: H2B IVF: None at this time Code: FULL CODE Patient is admitted under observation status with expected length of stay less than 2 midnights due to severity of presenting symptoms, risk of adverse event, and complexity of treatment plan. Pain Evaluation: Adequate Pain Control GI Prophylaxis: H2 stephanie VTE Prophylaxis: Sub-Q Heparin (Unfractionated) Resuscitation Status: CPR: Attempt Resuscitation Attending Statement The patient was seen and examined together with Dr. Campbell on 07/22 and I agree with the history, exam and plan as outlined in the note above. Brianne Campbell DO Jul 22, 2017 21:55 Joaquin Moore MD Jul 23, 2017 01:33
[2017-07-22] MEDS ORDERED: Albuterol-Ipratropium 3 mL Inhalation Solution NEB PRN (22:20)
[2017-07-22] MEDS ORDERED: Albuterol 2.5 mg/3 mL Inhalation Solution NEB PRN (22:20)
[2017-07-22 23:36] VITALS: PULSE 77
[2017-07-23] VITALS (11 sets, daily range): BP systolic 102–119; BP diastolic 65–73; PULSE 70–80; RESP 16–20; O2SAT 91–100
[2017-07-23] MEDS: Heparin 5,000 Unit/mL Inj SUBQ SCH ×3 (01:55→16:02)
--- NOTE | 2017-07-23 04:00 | NUR ---
Admit note: Pt admitted from the ER, arrived in his wheelchair. Pt is a jackie lift transfer, was jackie lifted to the bed. Alert and oriented x3. States he is here due to lab results, "I feel fine". Reports chronic leg pain, medicated in the ED, stated no relief. MD called for orders on the unit, additional medication given. Pt stated the medication he receives at [facility] does not even work to relieve the pain anymore. Pt has a wound to the right buttock, wound care has been ordered. Pt states having wound for "about 11 months". Pt requested a new IV site, a kennel staff member was able to get a new site, but pt requested it be removed right away. Currently saline locked in right hand, IV patent, sock placed over site to minimize site from getting "bumped". Call light in reach, using call light for needs.
[2017-07-23 05:44] LABS: APPEARANCE,URINE CLEAR (CLEAR,HAZY); COLOR,URINE YELLOW (YELLOW)
[2017-07-23 05:45] LABS: OCCULT BLOOD,URINE MODERATE (NEGATIVE); UROBILINOGEN,URINE NORMAL (NORMAL)
[2017-07-23 06:48] LABS: BASOPHILS % (AUTO) 0.6 % (0-3); EOSINOPHILS % (AUTO) 4.7 % (0-5); MONOCYTES % (AUTO) 10.3 % (4-12); Mean Corpuscular Hemoglobin 28.8 pg (27.0-35.0); Mean Corpuscular Volume 85.8 fL (81-100); NEUTROPHILS % (AUTO) 58.9 % (40-74); Platelet Count 309 bil/L (150-400)
--- NOTE | 2017-07-23 07:39 | NUR ---
Med Rec Admit nurse in this AM, will complete med rec. Addendum: 07/23/17 at 1629 by KISHA YANES RN Med rec completed early this afternoon, MD meyer.
--- NOTE | 2017-07-23 09:03 | PCM.PNMED ---
Subjective Date of Service Jul 23, 2017 Subjective pt denied any complaints, no overnight event HD stable, denied GODWIN, dizziness, abd pain, n,v Exam Vital Signs Vital Sign - Last Date Time Temp Pulse Resp B/P Pulse Ox O2 Delivery O2 Flow Rate FiO2 07/23/17 07:45 75 16 91 Nasal Cannula 1.00 07/23/17 05:09 37.0 114/73 Intake and Output 07/22/17 07/22/17 07/23/17 Cumulative From/Thru 15:00 23:00 07:00 07/22/17 18:59 - 07/23/17 05:09 Intake Total 300 ml 300 ml Output Total 200 ml 200 ml Balance 100 ml 100 ml Intake Oral 300 ml 300 ml Output Urine Total 200 ml 200 ml # Voids 1 1 Exam Obese AA, comfortable on bed NAD, comfortably laying down on the bed no JVD, MMM, no LAD RRR, nl s1, s2 no mrg CTAB, no w,c S,ND,NT,normoactive BS+ warm, trace edema, pulses 2/2 IVs and Medications Medications Reviewed: Medications were reviewed in detail Lab and Diagnostics Result Diagram: 07/23/1761907/23/17619 Assessment & Plan Mr. Mcbride is a 72 year old gentleman with history of chronic hypoxemic respiratory failure secondary to advancing COPD, HFrEF, pulmonary hypertension, HTN, chronic right hip pain secondary to avascular necrosis, C. difficile infection, and MRSA, that presented to [facility] via EMS from [facility] for abnormal laboratory result of Na 118 obtained at [facility]. Patient reports as asymptomatic, without dizziness, headache, seizure activity, acute vision changes, nausea, vomiting, or LOC. He was admitted for observation and evaluation of euvolemic hyponatremia. - Hospital day one acute, active Hyponatremia, euvolemic, mildly hypovolemic. On admit: Na 126; reports from [facility] 118, previous admission April 2017 sodium 140, Urine Na 25, urine Osm 191. this likely due multifactorial: excessive free water intake, and/or renal Na loss with diuretics:lasix, spironolactone, metolazone. -will hold home diuretics for now: [id number] daily, metolazone2.5mg tid, [id number] daily, consider resume one of diuretics based on serial exam prior to d/c -fluid restriction 1.5liter/d Hypokalemia, POA, also likely due to diuretics as above, -persistent today, replete as needed target>4 infectious status, probable UTI, POA, pt was started on CFX 1g IM on 07/19 ordered for 7days. pt was placed on butler then d/jo ann on 07/22 switched to straight cath for urinary retention. UA on admission pyuria, bacteriua, -will check with bladder scan for retention, -continue CFX 2g iv qd for now, day5 today, consider 2more doses, last dose 07/25 -awaits UCX -wound care nurse to check pressure ulcer for infection. chronic, stable Chronic pain of right hip secondary to avascular necrosis, presumed stable - Resume home medications when reconciliation complete and when appropriate - Hydromorphone 4 mg tabs every 4 hours as needed; oxycodone 5 mg every 4 hours as needed Morbid obesity with limited mobility, chronic, presumed stable - Physical therapy evaluation to promote mobility and for bedside exercise - Continue to encourage mobility as tolerated Normocytic normochromic anemia, chronic, presumed stable - Admit: Hb 11.8, Hct 34.6, MCV 85.2, MCH 29.1 - Currently stable; continue to monitor History of heart failure, systolic and diastolic, chronic, presumed stable - Echo April 2017: Technically limited study with grossly normal EMS and borderline dilated right ventricle with normal right ventricular systolic function - Resume home medications when reconciliation complete and when appropriate - Preliminary records show: Metolazone 2.5 mg every Saturday, Saturday, Saturday; spironolactone 50 mg daily, torsemide 20 mg twice daily, hold diuretics for now as above Chronic hypoxemic respiratory failure secondary to COPD, presumed stable - Continue home oxygen therapy - Duoneb + accuneb prn HTN, chronic, presumed stable - Normotensive at time of admissioni - Resume home medications when reconciliation complete and when appropriate, including medications as noted above History of decubitus ulcerations, chronic, presumed stable - Followed by wound care outpt - Wound care consult Gout, chronic, presumed stable - Resume home medications when reconciliation complete and when appropriate - Colchicine 0.6 mg as needed - Continue cautious use of diuretics History bilateral lower extremity edema, chronic, presumed stable - Resume home medications, including rutin 500 mg daily - No evidence found that this flavinoid can contribute to hyponatremia; studies extremely limited PRN fever, bowel, nausea, pain DVT: Hep q8; will change to therapeutic fondaparinux when verified Diet: Heart healthy fluid restriction 1 L GI: H2B IVF: None at this time Code: FULL CODE dispo: likely 1-2more days until electrolytes more stable. GI Prophylaxis: H2 stpehanie VTE Prophylaxis: Sub-Q Heparin (Unfractionated) Resuscitation Status: CPR: Attempt Resuscitation Time spent 35min Shari Alcantar MD Jul 23, 2017 09:00
--- NOTE | 2017-07-23 09:04 | NUR ---
Social Work-initial assessment: Data:See initial assessment. Pt is a 72 y/o male who was admitted on 07/22/17 for hyponatremia per H&P. Pt's insurance is [employer] and PCP is Dieter Garibay MD. EMR reviewed. SW met with pt at bedside, SW role explained. Pt is alert and oriented x3. Pt identifies his SO Simran Vallejo as NOK [phone] Pt resides at [facility] where he requires total care, pt does not have capacity for self care. Pt does not walk and uses 02 at baseline. Pt has no senior living care insurance or VA benefits. SW discussed DPOA/ advanced directive, pt confirms this has been completed. SW provided pt with discharge planning checklist and encouraged pt to call with any questions,phone number provided on white board in room. Pt plans on returning to [facility] when medically stable. SW to await MD order for return to SNF prior to contacting [facility]. Paperwork in the chart. SW will continue to follow. Assessment:pt who is senior living care at [facility]. Plan:Pt to likely discharge back to [facility] when medically stable. SW to await MD order to contact facility. Paperwork in the chart. SW will continue to follow. ABELARDO Enriquez Addendum: 07/23/17 at 0911 by BRANDAN JUSTICE SS Amended: Links added.
--- NOTE | 2017-07-23 10:28 | NUR ---
PT NOTE-- Patient is Thompson lift at baseline and total assist for all care. Not appropriate for PT. Recommend nrsg use lift as needed for mobility.
[2017-07-23] MEDS ORDERED: ATOR40TA69 PO (12:14)
[2017-07-23] MEDS ORDERED: CHOL500011 PO (12:14)
[2017-07-23] MEDS ORDERED: ASCO-294 PO (12:14)
[2017-07-23] MEDS ORDERED: LACT1CAP67 PO (12:14)
[2017-07-23] MEDS ORDERED: SPIR25TA3 PO (12:20)
[2017-07-23] MEDS ORDERED: POTA20TA16 PO ×2 (12:20)
[2017-07-23] MEDS ORDERED: ACET-171 PO (12:20)
[2017-07-23] MEDS ORDERED: ACET325C PO (12:35)
[2017-07-23] MEDS ORDERED: MV-M1CAP17 PO (12:35)
[2017-07-23] MEDS ORDERED: FLUT16SP NASAL (12:35)
[2017-07-23] MEDS ORDERED: DOCU250C2 PO (12:35)
[2017-07-23] MEDS ORDERED: POLY17PO6 PO (12:35)
[2017-07-23] MEDS ORDERED: SENN-133 PO (12:35)
[2017-07-23] MEDS ORDERED: IMI100 PO (12:40)
[2017-07-23] MEDS ORDERED: DIPH25CA6 PO (12:40)
[2017-07-23] MEDS ORDERED: CEFT500V5 IJ (12:40)
--- NOTE | 2017-07-23 14:26 | NUR ---
Inpatient Wound Nurse Patient seen for pressure injury of R buttock. Injury appears to be a resolving Stage 3, but will classify as Stage 2 since this is first visualization and assessment. Evidence of multiple healed pressure injuries across both buttocks, patient stated that he did not know how long he has had this one. Wound is in crease of distal buttock and proximal posterior thigh, 3 cm L x 2 cm W x 1.5 cm D; periwound WNL of adjacent tissue, no erythema, no defined wound edges. Wound looks like a navel with sloping sides that nearly touch, and a thin tunnel in center. Wound bed is granulating, epithelialized, white and light pink on perimeter due to scarring and lack of melanin pigment in revitalized tissue, no drainage noted. Wound was cleansed with NS and blotted dry, then covered with piece of Mepilex sheet foam transfer dressing. CWON will go to Wound Center and obtain Aquacel Extra string dressing to be used as small packing tomorrow. Patient stated that string gauze was used in the past and he has found nearly all packing to be uncomfortable. He was agreeable to trial of packing, "if you know what you're doing." Nursing may change out Mepilex sheet foam transfer dressing PRN until tomorrow when CWON will pack wound if patient agreeable. CWON will see patient tomorrow.
[2017-07-23] MEDS ORDERED: Fluticasone 0.05% 15 Spray/2 Gm 16 Gm Nasal Spray NASAL PRN (16:45)
[2017-07-23] MEDS ORDERED: Albuterol HFA 60 Puff 8 Gm Inhaler INHALATION PRN (16:45)
[2017-07-23] MEDS ORDERED: Albuterol 2.5 mg/3 mL Inhalation Solution NEB PRN (16:50)
[2017-07-23] MEDS ORDERED: Potassium Chloride 20 mEq SR Tablet PO ONE (17:35)
[2017-07-23] MEDS: 0.9% NaCl + KCl 20 mEq/L 1,000 ML IV SCH (17:54)
--- NOTE | 2017-07-23 18:30 | NUR ---
Case Management: DUSTY explained to patient at 1815, all questions answered. Signed original placed in chart, copy given to patient. Farrah Roberts RN
--- NOTE | 2017-07-24 05:04 | NUR ---
PAIN Pt alert and oriented x4, repositioned Q2hrs. Pt calls appropriately and is able to communicate needs. Patty care provided, pt had some loose stool but c/o constipation, received Docusate. Dressing on right buttocks replaced and wound cleaned with normal saline. pt slept on and off, vital signs remains stable. Addendum: 07/24/17 at 0624 by ZACKARY ALEXANDER RN Pt received Dilaudid and oxycodone this morning for hip pain.
[2017-07-24 05:22] VITALS: BP 97/63; PULSE 85; RESP 18; O2SAT 94
[2017-07-24] MEDS: 0.9% NaCl + KCl 20 mEq/L 1,000 ML IV SCH (05:53)
[2017-07-24 07:31] LABS: Magnesium 1.9 mg/dL (1.6-2.6)
[2017-07-24] MEDS ORDERED: oxyCODONE ER 10 mg ER12 Tablet PO SCH (08:30)
[2017-07-24] MEDS ORDERED: Lactobacillus Rhamnosus 10 Bil Unit Capsule PO SCH (08:30)
[2017-07-24 09:37] VITALS: BP 97/57; PULSE 89; RESP 18; O2SAT 94
[2017-07-24 10:44] VITALS: PULSE 82
[2017-07-24 13:28] VITALS: BP 98/64; PULSE 80; RESP 18; O2SAT 96
--- NOTE | 2017-07-24 13:38 | NUR ---
Inpatient Wound Nurse Patient seen for wound care of buttock PI. Wound was cleansed, blotted dry, then packed with string of Aquacel Extra Ag. Product was shown to patient who agreed to trial, as he stated yesterday that he normally does not like wound packing due to discomfot. Only 1 cm was inserted, a tail of packing left outside wound, and the remainder cut off. Wound was then covered with bordered sacral Mepilex dressing which CWON expects to roll and bunch up. If this occurs, Mepilex sheet foam transfer dressing may be a better fit. Nursing staff may cut a strip of Mepilex sheet foam transfer dressing about 4 x [address] over wound. This dressing is adhesive, may stay in place without tape. CWON will see patient tomorrow.
--- NOTE | 2017-07-24 13:39 | NUR ---
Social Work-readiness for discharge: Data:EMR Reviewed. Pt is on day 2 of hyponatermia per H&P. Pt is likely medically stable later today or tomorrow. Pt resides at [facility]. order received for return to SNF. SW spoke with [facility] and they are able to have pt return at discharge. Pt is followed by Dr. Agrawal. Paperwork placed in the chart. SW will continue to follow. 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 Plan:Pt to discharge back to [facility] when medically stable. Paperwork placed in the chart. SW will continue to follow. ABELARDO Enriquez
--- NOTE | 2017-07-24 14:28 | PCM.DIMED ---
Discharge Instructions Date of Service Jul 24, 2017 Dates of Hospitalization Jul 22, 2017 at 22:51 Discharge Diagnosis Discharge Diagnosis acute dx Hyponatremia, likely multifactorial: excessive free water intake, and/or renal Na loss with diuretics:lasix, spironolactone, metolazone Hypokalemia, also likely due to diuretics as above, probable recent UTI, chronic dx Chronic pain of right hip secondary to avascular necrosis, Morbid obesity with limited mobility, Normocytic normochromic anemia, History of heart failure, systolic and diastolic, chronic Chronic hypoxemic respiratory failure secondary to COPD HTN, History of decubitus ulcerations Gout, History bilateral lower extremity edema Diet Discharge Diet: Low fat, Low Sodium Activity Discharge Activity: No restrictions Call your provider Call your provider for: Shortness of breath, Excessive diarrhea Patient Instructions Patient Instructions You were sent to the hospital due to low sodium level. Your low sodium level likely resulted from combination of water pills you are taking and increased water drinking. You were monitored closely in the hospital without water pills, clinically remained stable. Instruction for SNF> Please note that patient had asymptomatic hyponatremia secondary to diuretics. Since patient seems euvolemic on exam with holding diuretics. Please continue to hold diuretics for now, return weight closely, likely resume diuretics as needed, Lasix, metolazone, spironolactone, potassium supplement were all held, sodium level was appropriately elevated, potassium level remained stable Ceftriaxone was stopped, patient did not show any symptoms or signs of urinary tract infection, didn't retain any urine. Please repeat BMP in one week to check Na, K Follow-up Provider: JOHN DILLARD Follow-up with PCP in: 1 week Shari Alcantar MD Jul 24, 2017 14:28
--- NOTE | 2017-07-24 14:51 | PCM.DC.MED ---
Discharge Summary Date of Service Jul 24, 2017 Dates of Hospitalization Date of Hospital Admission Jul 22, 2017 at 22:51 Date of Discharge: Jul 24, 2017 Providers: Admitting Physician: Joaquin Moore MD Primary Care Physician: Dieter Garibay MD Attending Physician: Shari Alcantar MD Diagnosis at Time of Discharge Diagnosis at Time of Discharge acute dx Hyponatremia, likely multifactorial: excessive free water intake, and/or renal Na loss with diuretics:lasix, spironolactone, metolazone Hypokalemia, also likely due to diuretics as above, probable recent UTI, chronic dx Chronic pain of right hip secondary to avascular necrosis, Morbid obesity with limited mobility, Normocytic normochromic anemia, History of heart failure, systolic and diastolic, chronic Chronic hypoxemic respiratory failure secondary to COPD HTN, History of decubitus ulcerations Gout, History bilateral lower extremity edema Procedures XRay, CTs & MRIs PROCEDURE: X-RAY CHEST, TWO VIEWS ([id number]) INDICATIONS: chf TECHNIQUE: 2 views of the chest were acquired. COMPARISON: None. FINDINGS: Surgical changes and devices: None. Lungs and pleura: No pleural effusions or pneumothorax. Lungs are clear. Mediastinum: Mediastinal contours are normal. Heart size is normal. Bones and chest wall: No suspicious bony abnormalities. Soft tissues appear unremarkable. IMPRESSION: No acute cardiopulmonary findings. Dictated by: Saloni Leggett M.D. on 07/22/2017 at 21:40 Approved by: Saloni Leggett M.D. on 07/22/2017 at 21:40 Brief History HPI obtained by Dr. Moore on 07/22 Mr. Mcbride is a 72 year old gentleman with history of chronic hypoxemic respiratory failure secondary to advancing COPD, HFrEF, pulmonary hypertension, HTN, chronic right hip pain secondary to avascular necrosis, C. difficile infection, and MRSA, that presented to [facility] via EMS from [facility] for abnormal laboratory result of Na 118 obtained at [facility]. Patient reports as asymptomatic, without dizziness, headache, seizure activity, acute vision changes, nausea, vomiting, or LOC. He was admitted for observation and evaluation of euvolemic hyponatremia. - Hospital day one Mr. Mcbride states that he understands why he is here, but reports no associated symptoms: denies any fever, chills, nausea, vomiting, dysuria, hematuria, SOB above baseline, cough, diarrhea, constipation, lightheadedness, dizziness, seizure like activity, LOC, weakness above baseline, CP, palpitations , slurred speech, confusion. Currently states his only compliant is irritation with the need for admission. Notably irritated at time of admission throughout interview. Understands that his sodium level is low. Admits to increasing his po hydration, states compliance with medication. Admits to current right sided hip pain, and need for rest. In the ED, T36.4, P74, R18, BP 117/75, 94% 1L NC; Initial lab at [facility] revealed Na 126, K 3.3, Cr 1.04, glc 113, LFTs within range, Hb 11.8, Hct 34.6. Patient denies any changes to medications since recent admission April 2017. EKG did not reveal any acute ST-T changes, or wave changes indicative of electrolyte abnormalities, QTc 448. ED kindly contacted nephrology, whom did not agree for consultation at this time. Plan for admission and monitoring of electrolytes with fluid restriction. Patient transported to medical floor in stable condition. Hospital Course Mr. Mcbride is a 72 year old gentleman with history of chronic hypoxemic respiratory failure secondary to advancing COPD, HFrEF, pulmonary hypertension, HTN, chronic right hip pain secondary to avascular necrosis, C. difficile infection, and MRSA, that presented to [facility] via EMS from [facility] for abnormal laboratory result of Na 118 obtained at [facility]. Patient reports as asymptomatic, without dizziness, headache, seizure activity, acute vision changes, nausea, vomiting, or LOC. He was admitted for observation and evaluation of euvolemic hyponatremia. Brief hospital course Patient was admitted with asymptomatic hyponatremia. Sodium was 118 from halfway facility, repeat one was 126. It was thought to be multifactorial given the patient's excessive free water intake plus renal sodium loss from diuretics. All of patient's diuretics including Lasix, spironolactone, metolazone were held. Patient was put on fluid restriction 1.5 L per day. Patient briefly stayed two days in the hospital. Sodium level was appropriately elevated to 131-132 on d/c. Patient remained asymptomatic, maintained airways without oxygen supplement. Instruction was given to the halfway to continue hold the diuretics for now, likely to resume one of the diuretics in the future based on volume status. Patient was also treated for UTI in skin or nursing facility, plan was to continue ceftriaxone for 7 days. However, given no urinary symptoms or retention, no signs of active infection, ceftriaxone was discontinued. acute, active Hyponatremia, euvolemic, mildly hypovolemic. On admit: Na 126; reports from [facility] 118, previous admission April 2017 sodium 140, Urine Na 25, urine Osm 191. this likely due multifactorial: excessive free water intake, and/or renal Na loss with diuretics:lasix, spironolactone, metolazone. -will hold home diuretics for now: [id number] daily, metolazone2.5mg tid, [id number] daily, consider resume one of diuretics based on serial exam prior to d/c -fluid restriction 1.5liter/d Hypokalemia, POA, also likely due to diuretics as above, -persistent today, replete as needed target>4 infectious status, probable UTI, POA, pt was started on CFX 1g IM on 07/19 ordered for 7days. pt was placed on butler then d/jo ann on 07/22 switched to straight cath for urinary retention. UA on admission pyuria, bacteriua, -will check with bladder scan for retention, -continue CFX 2g iv qd for now, day5 today, consider 2more doses, last dose 07/25 -awaits [facility] -wound care nurse to check pressure ulcer for infection. chronic, stable Chronic pain of right hip secondary to avascular necrosis, presumed stable - Resume home medications when reconciliation complete and when appropriate - Hydromorphone 4 mg tabs every 4 hours as needed; oxycodone 5 mg every 4 hours as needed Morbid obesity with limited mobility, chronic, presumed stable - Physical therapy evaluation to promote mobility and for bedside exercise - Continue to encourage mobility as tolerated Normocytic normochromic anemia, chronic, presumed stable - Admit: Hb 11.8, Hct 34.6, MCV 85.2, MCH 29.1 - Currently stable; continue to monitor History of heart failure, systolic and diastolic, chronic, presumed stable - Echo April 2017: Technically limited study with grossly normal EMS and borderline dilated right ventricle with normal right ventricular systolic function - Resume home medications when reconciliation complete and when appropriate - Preliminary records show: Metolazone 2.5 mg every Saturday, Saturday, Saturday; spironolactone 50 mg daily, torsemide 20 mg twice daily, hold diuretics for now as above Chronic hypoxemic respiratory failure secondary to COPD, presumed stable - Continue home oxygen therapy - Duoneb + accuneb prn HTN, chronic, presumed stable - Normotensive at time of admissioni - Resume home medications when reconciliation complete and when appropriate, including medications as noted above History of decubitus ulcerations, chronic, presumed stable - Followed by wound care outpt - Wound care consult Gout, chronic, presumed stable - Resume home medications when reconciliation complete and when appropriate - Colchicine 0.6 mg as needed - Continue cautious use of diuretics History bilateral lower extremity edema, chronic, presumed stable - Resume home medications, including rutin 500 mg daily - No evidence found that this flavinoid can contribute to hyponatremia; studies extremely limited PRN fever, bowel, nausea, pain DVT: Hep q8; will change to therapeutic fondaparinux when verified Diet: Heart healthy fluid restriction 1 L GI: H2B IVF: None at this time Code: FULL CODE dispo: likely 1-2more days until electrolytes more stable. Exam Vital Signs (Last) Date Time Temp Pulse Resp B/P Pulse Ox O2 Delivery O2 Flow Rate FiO2 07/24/17 13:28 36.9 80 18 98/64 96 Nasal Cannula 1.00 Exam Patient was examined on the day of discharge Test 07/22/17 19:56 07/23/17 05:15 07/23/17 06:20 07/24/17 06:58 Hold Gaspar Top Tube Received (Received) Urine Color Yellow (YELLOW) Urine Appearance Clear (CLEAR,HAZY) Urine pH 8.0 (5.0-8.0) Urine Specific [place] 1.006 (1.003-1.035) Urine Protein Negativemg/dL (NEG,TRACE) Urine Glucose (UA) Negativemg/dL (NEGATIVE) Urine Ketones Negativemg/dL (NEGATIVE) Urine Occult Blood Moderate (NEGATIVE) Urine Nitrite Negative (NEGATIVE) Urine Bilirubin Negative (NEGATIVE) Urine Urobilinogen Normalmg/dL (NORMAL) Urine Leukocyte Esterase Large (NEGATIVE) Urine RBC 3-10/hpf (0-2) Urine WBC 6-10/hpf (0-5) Urine Epithelial Cells 0/hpf (NONE-MOD) Urine Crystals None seen (NONE SEEN) Urine Bacteria Few/hpf (NONE-FEW) Urine Hyaline Casts None/lpf (NONE) Urine Granular Casts None seen (NONE SEEN) Urine Waxy Casts None seen (NONE SEEN) Urine Red Blood Cell Casts None seen (NONE SEEN) Urine White Blood Cell Casts None seen (NONE SEEN) Urine Mucus None seen (None Seen) Urine Trichomonas None seen (NONE SEEN) Urine Yeast None (NONE SEEN) Urinalysis Comment 2 mil received Urine Culture Reflexed Not indicated Urine Osmolality 191mOs/kH2O (250-1200) Urine Random Sodium 25mEq/L White Blood Count 7.9th/mm3 (3.8-10.1) Red Blood Count 3.65mil/mm3 (4.40-5.80) Hemoglobin 10.5g/dL (13.8-17.2) Hematocrit 31.3% (41.0-50.0) Mean Corpuscular Volume 85.8fL (81-100) Mean Corpuscular Hemoglobin 28.8pg (27.0-35.0) Mean Corpuscular Hemoglobin Concent 33.5% (32.0-37.0) Red Cell Distribution Width 14.6% (12.3-15.4) Platelet Count 309bil/L (150-400) Neutrophils (%) (Auto) 58.9% (40-74) Lymphocytes (%) (Auto) 24.6% (14-46) Monocytes (%) (Auto) 10.3% (4-12) Eosinophils (%) (Auto) 4.7% (0-5) Basophils (%) (Auto) 0.6% (0-3) Thyroid Stimulating Hormone (TSH) 0.362uIU/mL (0.450-4.500) Free Thyroxine 1.47ng/dL (0.82-1.77) Magnesium Level 1.9mg/dL (1.6-2.6) Test 07/24/17 13:45 Sodium Level 131mEq/L (134-144) Potassium Level 3.9mEq/L (3.5-5.2) Chloride Level 92mEq/L (97-108) Carbon Dioxide Level 27mmol/L (18-29) Blood Urea Nitrogen 30mg/dL (8-27) Creatinine 0.79mg/dL (0.76-1.27) Estimat Glomerular Filtration Rate 103mL/min (>59) Glucose Level 135mg/dL (60-99) Calcium Level 9.4mg/dL (8.5-10.1) Total Bilirubin 0.2mg/dL (0.0-1.2) Aspartate Amino Transf (AST/SGOT) 22U/L (0-50) Alanine Aminotransferase (ALT/SGPT) 16U/L (0-44) Alkaline Phosphatase 66U/L (25-160) Total Protein 5.4g/dL (6.4-8.4) Albumin 3.1g/dL (3.4-5.0) Discharge Medications Discharge Medications Albuterol HFA (Proair HFA) 8.5 Gm Hfa.aer.ad 2 PUFFS INHALATION Q4H (Reported) Ascorbate Calcium (Vitamin C) 500 Mg Tablet 500 MG PO DAILY (Reported) Atorvastatin Calcium (Atorvastatin Calcium) 40 Mg Tablet 40 MG PO HS (Reported) Cholecalciferol (Vitamin D3) (Vitamin D3) 5,000 Unit Tablet 25,000 UNIT PO DAILY (Reported) Famotidine (Famotidine) 20 Mg Tablet 20 MG PO DIALY (Reported) Fondaparinux Sodium (Fondaparinux Sodium) 2.5 Mg/0.5 Ml Syringe 2.5 MG SQ DAILY (Reported) Lactobacillus Combination No.4 (Probiotic) 1 Each Capsule 1 EACH PO DAILY ( Reported) Magnesium Oxide (Magnesium Oxide) 400 Mg Tablet 800 MG PO 2X WEEK (Reported) Mv-Mn/FA/A Lipoic Acid/Ubidec (Diabetic Vitamin Capsule) 800 Mcg-150 Mg-50 Mg Capsule 1 EACH PO DAILY (Reported) Oxycodone ER (Oxycontin) 10 Mg Tab.er.12h 10 MG PO Q8HR Prescribed by: JANICE RIBERA MD Rutin (Rutin) 500 Mg Tablet 500 MG PO DAILY (Reported) As needed Acetaminophen (Acetaminophen) 500 Mg Tablet 1,000 MG PO Q8Hrs PRN PRN For Pain ( Reported) Acetaminophen (Acetaminophen) 325 Mg Capsule 650 MG PO Q4Hrs PRN PRN For Pain ( Reported) Colchicine (Colcrys) 0.6 Mg Tablet 0.6 MG PO DAILY PRN PRN GOUT (Reported) Docusate Sodium (Docusate Sodium) 250 Mg Capsule 250 MG PO BID PRN PRN For Constipation (Reported) Fluticasone Propionate (Fluticasone Propionate Nasal) 16 Gm Burton.susp 1 SPRAY NASAL BID PRN PRN allergies (Reported) Hydromorphone (Hydromorphone) 4 Mg Tablet 4 MG PO Q4H PRN PRN Pain Prescribed by: JANICE RIBERA MD Polyethylene Glycol 3350 (Miralax) 17 Gm Powd.pack 17 GM PO HS PRN PRN For Constipation (Reported) Sennosides (Senna) 8.6 Mg Tablet 17.2 MG PO BID PRN PRN For Constipation ( Reported) Sumatriptan (Imitrex) 100 Mg Tablet 100 MG PO PRN For Headache (Reported) diphenhydrAMINE HCl (Benadryl) 25 Mg Capsule 25-50 MG PO Q6Hrs PRN PRN ( Reported) oxyCODONE (oxyCODONE) 5 Mg Tablet 5-10 MG PO Q4H PRN PRN For Moderate Pain Prescribed by: JANICE RIBERA MD Followup Plan Disposition: [facility] facility Discharge Diet: Low fat, Low Sodium Discharge Activity: No restrictions Patient Instructions You were sent to the hospital due to low sodium level. Your low sodium level likely resulted from combination of water pills you are taking and increased water drinking. You were monitored closely in the hospital without water pills, clinically remained stable. Instruction for SNF> Please note that patient had asymptomatic hyponatremia secondary to diuretics. Since patient seems euvolemic on exam with holding diuretics. Please continue to hold diuretics for now, return weight closely, likely resume diuretics as needed, Lasix, metolazone, spironolactone, potassium supplement were all held, sodium level was appropriately elevated, potassium level remained stable Ceftriaxone was stopped, patient did not show any symptoms or signs of urinary tract infection, didn't retain any urine. Please repeat BMP in one week to check Na, K Follow-up Provider: JOHN DILLARD Follow-up with PCP in: 1 week Time spent 65 minutes Shari Alcantar MD Jul 24, 2017 14:51
--- NOTE | 2017-07-24 15:52 | NUR ---
Social Work-discharge: Data:EMR Reviewed. Pt is on day 2 of hospitalization for hyponatermia per H&P. pt is medically stable for discharge. BRANDON spoke with Hallie from [facility] who states she is agreeable to accepting pt back today. 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 Hallie arranged w/c transport for 1730. BRANDON faxed orders and created packet. SW updated pt at bedside and he is agreeable to plan. Pt states he will update his SO Simran. [facility] and [facility] to plan. Assessment:pt to return to [facility]. Plan:Pt to discharge back to [facility] today via w/c transport at 1730. RN,UC,pt/family, and [facility] all updated and agreeable to plan. ABELARDO Enriquez
--- NOTE | 2017-07-24 17:05 | NUR ---
Discharge Pt. discharged to [facility] via w/c and [facility] service. Pt. assisted to w/c via jackie lift and his own jackie sling. All belongings sent pt. IV and tele dc'd prior to discharge. Report called to [facility] RN prior to Discharge. Pt. has no questions or concerns at this time and is anxious to "go home".
== END 2017-07-24 16:36 ==
LOC: SED 18:44 → MPC 22:51 → INTOOBSV 22:51 → MPC 23:16
PROVIDERS: ADMIT Hospitalist; ATTEND Hospitalist
DX: E87.1 Hypo-osmolality and hyponatremia (principal); E87.6 Hypokalemia; I50.42 Chronic combined systolic (congestive) and diastolic (congestive) heart failure; J96.11 Chronic respiratory failure with hypoxia; J44.9 Chronic obstructive pulmonary disease, unspecified; E66.01 Morbid (severe) obesity due to excess calories; Z68.41 Body mass index [BMI] 40.0-44.9, adult; L89.312 Pressure ulcer of right buttock, stage 2; D64.9 Anemia, unspecified; I12.0 Hypertensive chronic kidney disease with stage 5 chronic kidney disease or end stage renal disease; N18.5 Chronic kidney disease, stage 5; E11.9 Type 2 diabetes mellitus without complications; I25.10 Atherosclerotic heart disease of native coronary artery without angina pectoris; I27.9 Pulmonary heart disease, unspecified; E78.5 Hyperlipidemia, unspecified; M1A.9XX0 Chronic gout, unspecified, without tophus (tophi); G47.33 Obstructive sleep apnea (adult) (pediatric); M87.9 Osteonecrosis, unspecified; Z87.891 Personal history of nicotine dependence; Z99.81 Dependence on supplemental oxygen
CPT/HCPCS: 36415; 71020; 80048; 80053; 81000; 83735; 83935; 84300; 84439; 84443; 85025; 87641; 93005; 94799; 96372; 96374; 96376; 97602; 99285; G0378; J1644; J1652